=== PATIENT | female | born 1975 | race Caucasian/White ===

== ENCOUNTER 2016-08-06 13:19 | Outpatient (CLI) | payer MEDICAID, OTHER ==
[2016-08-06] MEDS ORDERED: IOTHALAMATE MEGLUMINE 50 ML VIAL IVP ONE (14:29)
[2016-08-06] MEDS ORDERED: LIDOCAINE-MPF 1% 5 ML VIAL SUBQ ONE (14:29)
[2016-08-06] MEDS ORDERED: GADOPENTETATE DIMEGLUMINE 5 ML VIAL IVP ONE (14:29)
[2016-08-06] MEDS ORDERED: BUFFERED LIDOCAINE 10 ML SYRINGE IU ONE (14:29)
== END 2016-08-06 13:20 | disposition home or self-care (01) ==
DX: M75.121 Complete rotator cuff tear or rupture of right shoulder, not specified as traumatic (principal); M94.211 Chondromalacia, right shoulder; M25.811 Other specified joint disorders, right shoulder; M25.511 Pain in right shoulder
CPT/HCPCS: 23350; 73222; 77002; Q9961

== ENCOUNTER 2016-08-23 08:00 | Outpatient (CLI) | payer MEDICAID, OTHER | END 2016-08-23 08:01 | disposition home or self-care (01) | DX: E03.9 Hypothyroidism, unspecified (principal) ==

== ENCOUNTER 2016-08-23 17:07 | Outpatient (CLI) | payer MEDICAID, OTHER | END 2016-08-23 17:08 | disposition home or self-care (01) | DX: E03.9 Hypothyroidism, unspecified (principal) ==

== ENCOUNTER 2016-10-04 12:26 | Outpatient (CLI) | payer OTHER, MEDICAID | END 2016-10-04 12:27 | disposition home or self-care (01) | DX: E03.9 Hypothyroidism, unspecified (principal) ==

== ENCOUNTER 2016-10-18 10:07 | Emergency (ER) | payer OTHER, MEDICAID ==
[2016-10-18 10:53] LABS: BASOPHILS % (AUTO) 0.4 %; EOSINOPHILS # (AUTO) 0.1 10^3/uL (0.0-0.7); EOSINOPHILS % (AUTO) 1.6 %; HCT - HEMATOCRIT 36.3 % (37.0-47.0); HGB - HEMOGLOBIN 12.6 g/dL (12.0-16.0); LYMPHOCYTES # (AUTO) 1.9 10^3/uL (1.5-3.5); LYMPHOCYTES % (AUTO) 36.4 %; MEAN CORPUSCULAR HEMOGLOBIN 32.2 pg (27.0-31.0); MEAN CORPUSCULAR HGB CONC 34.8 g/dL (32.0-36.0); MEAN CORPUSCULAR VOLUME 92.4 fL (81.0-99.0); MEAN PLATELET VOLUME 8.6 fL (7.9-10.8); MONOCYTES # (AUTO) 0.4 10^3/uL (0.0-1.0); MONOCYTES % (AUTO) 8.5 %; NEUTROPHILS # (AUTO) 2.7 10^3/uL (1.5-6.6); NEUTROPHILS % (AUTO) 53.1 %; NUCLEATED RED BLOOD CELLS AUTO 0.1 /100WBC; RED BLOOD COUNT 3.93 10^6/uL (4.20-5.40); RED CELL DISTRIBUTION WIDTH 12.9 % (12.0-15.0); UNCORRECTED WHITE BLOOD COUNT 5.2 x10^3/uL; WHITE BLOOD COUNT 5.2 x10^3/uL (4.8-10.8)
[2016-10-18 10:54] LABS: BILIRUBIN,URINE NEGATIVE (NEGATIVE)
[2016-10-18 10:56] LABS: HCG UR QUAL NEGATIVE; UA CHARGE (STRIP ONLY) YES; UR CULTURE IF IND NOT INDICATED
[2016-10-18 11:04] LABS: ALBUMIN/GLOBULIN RATIO 1.3 (1.0-2.2); BILIRUBIN,TOTAL 0.5 mg/dL (0.2-1.0); CALCIUM 8.9 mg/dL (8.5-10.3); CREATININE 0.6 mg/dL (0.4-1.0); POTASSIUM 4.2 mmol/L (3.5-5.0); TOTAL PROTEIN 6.8 g/dL (6.7-8.2)
--- NOTE | 2016-10-18 11:06 | ED Physician Documentation ---
History of Present Illness - Stated complaint Stated Complaint: RUQ PX/KIDNEY PX - Chief complaint Chief Complaint: Abd Pain - Additonal information Additional information: hx from pt 41 female 4 days of worsening RUQ -> R flank pain s/p sonia EVANGELISTA BSO nausea, loose dark BM tested her own urine and neg for infection no fever, + chills no bad food, travel, sick contacts except child with strep Review of Systems Constitutional: reports: Chills. denies: Fever Cardiac: denies: Chest pain / pressure Respiratory: denies: Dyspnea GI: reports: Abdominal Pain, Nausea, Bloody / black stool (blackish). 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, Oophrectomy - Present Medications Home Medications: Ambulatory Orders Medication Instructions Recorded Confirmed Escitalopram Oxalate [Lexapro] 20 mg PO DAILY 03/30/16 10/18/16 Estradiol 1.5 mg PO DAILY 03/30/16 10/18/16 Butalb/Acetaminophen/Caffeine 1 tab PO Q6HR PRN 10/18/16 10/18/16 [[id number]-[id number]-Vhvp 50-300-40] Dicyclomine [Bentyl] 10 mg PO Q8H PRN #20 capsule 10/18/16 Levothyroxine [Synthroid] 25 mg PO DAILY 10/18/16 10/18/16 Promethazine [Phenergan] 25 mg PO Q6H PRN #10 tablet 10/18/16 - Allergies Allergies/Adverse Reactions: Allergies Allergy/AdvReac Type Severity Reaction Status Date / Time No Known Drug Allergies Allergy Verified 10/18/16 10:17 - Social History Does the pt smoke?: No Smoking Status: Never smoker - Immunizations Immunizations are current?: Yes PD ED PE NORMAL - Vitals Vital signs reviewed: Yes - General General: Alert and oriented X 3 - HEENT HEENT: PERRL - Neck Neck: Supple, no meningeal sign - Cardiac Cardiac: RRR - Respiratory Respiratory: No respiratory distress - Abdomen Abdomen: Soft, Other (TTP mid and upper right abd with some vol guarding, milder TTP RLQ) - Rectal Rectal: Other (dark brown heme neg stool QC passed) - Back Back: No: No CVA TTP (R) - Derm Derm: Normal color Results - Vitals Vitals: Vital Signs - 24 hr 10/18/16 10/18/16 10/18/16 10:14 12:20 12:33 Temperature 36 C L 36.2 C L Heart Rate 70 58 L 61 Respiratory 16 13 18 Rate Blood Pressure 136/75 H 107/55 L 118/73 O2 Saturation 100 99 100 10/18/16 13:35 Temperature Heart Rate 62 Respiratory 18 Rate Blood Pressure 117/73 O2 Saturation 97 Oxygen O2 Source Room air - Labs Labs: Laboratory Tests 10/18/16 10/18/16 10/18/16 10:40 10:43 10:43 WBC 5.2 RBC 3.93 L Hgb 12.6 Hct 36.3 L MCV 92.4 MCH 32.2 H MCHC 34.8 RDW 12.9 Plt Count 196 MPV 8.6 Neut # 2.7 Lymph # 1.9 Ware # 0.4 Eos # 0.1 Baso # 0.0 Absolute Nucleated RBC 0.01 Nucleated RBCs 0.1 Sodium 136 Potassium 4.2 Chloride 102 Carbon Dioxide 26 Anion Gap 8.0 BUN 13 Creatinine 0.6 Estimated GFR (MDRD) 110 Glucose 119 H Calcium 8.9 Total Bilirubin 0.5 AST 38 ALT 39 Alkaline Phosphatase 56 Total Protein 6.8 Albumin 3.9 Globulin 2.9 Albumin/Globulin Ratio 1.3 Lipase 16 L Urine Color YELLOW Urine Clarity CLEAR Urine pH 6.0 Ur Specific [place] 1.010 Urine Protein NEGATIVE Urine Glucose (UA) NEGATIVE Urine Ketones NEGATIVE Urine Occult Blood NEGATIVE Urine Nitrite NEGATIVE Urine Bilirubin NEGATIVE Urine Urobilinogen 0.2 (NORMAL) Ur Leukocyte Esterase NEGATIVE Ur Microscopic Review NOT INDICATED Urine Culture Comments NOT INDICATED Urine HCG, Qual NEGATIVE - Rads (name of study) CT abd pelvis Radiology: See rad report (no stones, diverticulosis s itis, s/p sonia and hyst , metallic FB in LLQ ? etiology) Departure - Departure Disposition: 01 Home, Self Care Clinical Impression: Abdominal pain Qualifiers: Abdominal location: unspecified location Qualified Code(s): R10.9 - Unspecified abdominal pain Condition: Good Instructions: ED Abdominal Pain Unkn Cause Follow-Up: Mel Nieves DO [Primary Care Provider] - (for a recheck in the next two days) Prescriptions: Dicyclomine [Bentyl] 10 mg PO Q8H PRN #20 capsule PRN Reason: Abdominal Pain Promethazine [Phenergan] 25 mg PO Q6H PRN #10 tablet PRN Reason: vomiting Comments: All of the tests today came back fine. The urine showed no infection or blood to suggest a kidney stone The blood work including kidney liver and pancreas function was fine. The CT scan did not show any kidney stones, no pancreatitis, no aneurysm, no bowel infection/perforation/obstruction, no internal bleeding or free fluid I am not sure what is causing the pain But given the extensive and reassuring workup, I do not think you need surgery or admission or antibiotics. I think it is safe for you to go home and to get any further work up as an outpatient It is very possible that over time, new or changing symptoms may develop that lead to a diagnosis not presently apparent. That is why close follow up with your PMD for a recheck is very important You can try a medication called bentyl to ease the pains. I do not recommend any strong pain killers because I do not want to mask changing or worsening symptoms Forms: Activity restrictions
--- NOTE | 2016-10-18 12:29 | CT Preliminary Report ---
Exam: CT Abdomen/Pelvis W/O IMPRESSION: Prior hysterectomy and cholecystectomy. No urinary tract calculi or urinary tract obstruction noted. Mild diverticulosis of the right colon without inflammatory change. Remainder of the bowel unremarkab le. 9 mm ovoid metallic foreign body left lower quadrant of indeterminate etiology. [facility] SITE ID: [id number]
--- NOTE | 2016-10-18 12:31 | CT Report ---
EXAM: CT ABDOMEN AND PELVIS (CT KUB) WITHOUT CONTRAST EXAM DATE: 10/18/2016 12:18 PM. CLINICAL HISTORY: Right sided abdominal/flank pain in a 41-year-old female. COMPARISONS: None. TECHNIQUE: Emergent axial helical CT imaging was performed through the abdomen and pelvis without IV contrast. Reconstructions: Coronal and sagittal. In accordance with CT protocol optimization, one or more of the following dose reduction techniques w ere utilized for this exam: automated exposure control, adjustment of mA and/or KV based on patient s ize, or use of iterative reconstructive technique. FINDINGS: Lung Bases: Unremarkable. Right Kidney/Ureter: Unremarkable. No stones, hydronephrosis, or hydroureter. No perinephric fat stra nding. Left Kidney/Ureter: Unremarkable. No stones, hydronephrosis, or hydroureter. No perinephric fat stran ding. Other Solid Organs: Noncontrast images of the solid organs are grossly unremarkable. Gallbladder/Bile Ducts: Gallbladder surgically absent. No dilated bile ducts. Peritoneal Cavity: Mild diverticulosis of the right colon without inflammatory change. No obstruction . No free fluid, free air or siobhan adenopathy. Appendix and terminal ileum are unremarkable. 3 x 9 mm metallic foreign body left lower quadrant. Pelvic Organs: Urinary bladder unremarkable. Uterus surgically absent. No adnexal mass, cyst or free fluid. No pathologically enlarged lymph nodes. Vasculature: Unremarkable. Other: None. IMPRESSION: Prior hysterectomy and cholecystectomy. No urinary tract calculi or urinary tract obstruction noted. Mild diverticulosis of the right colon without inflammatory change. Remainder of the bowel unremarkab le. 9 mm ovoid metallic foreign body left lower quadrant of indeterminate etiology. [facility] Referring Provider Line: [phone] SITE ID: [id number]
[2016-10-18] MEDS ORDERED: oxyCODONE 5 MG TABLET PO STA (12:48)
[2016-10-18] MEDS ORDERED: KETOROLAC 60 MG/2 ML VIAL IVP STA (12:48)
[2016-10-18] MEDS ORDERED: DICYCLOMINE 10 MG CAPSULE PO STA (12:49)
[2016-10-18] MEDS ORDERED: KETOROLAC 30 MG/ML VIAL ONE (12:51)
[2016-10-18] MEDS ORDERED: oxyCODONE 5 MG TABLET ONE (12:52)
[2016-10-18 13:37] VITALS: BP 117/73
== END 2016-10-18 14:04 | disposition home or self-care (01) ==
LOC: ED 10:07
DX: R10.11 Right upper quadrant pain (principal); K21.9 Gastro-esophageal reflux disease without esophagitis
CPT/HCPCS: 36415; 74176; 80053; 81003; 81025; 83690; 85025; 96374; 99283; 99284; A9270; 81001; 87086

== ENCOUNTER 2016-11-02 05:45 | Emergency (ER) | payer OTHER, MEDICAID ==
[2016-11-02] MEDS ORDERED: ALBUTEROL NEB 2.5 MG/3 ML INH STA (06:00)
[2016-11-02] MEDS ORDERED: DEXAMETHASONE 10 MG/ML VIAL PO STA (06:00)
[2016-11-02] MEDS ORDERED: HYDROcod/ACETAM 5/325 MG TABLET PO STA (06:01)
[2016-11-02] MEDS ORDERED: DEXAMETHASONE 10 MG/ML VIAL ONE (06:03)
[2016-11-02] MEDS ORDERED: HYDROcod/ACETAM 5/325 MG TABLET ONE (06:03)
[2016-11-02] MEDS ORDERED: CHERRY SYRUP 10 ML UDC PO ONE (06:03)
[2016-11-02] MEDS ORDERED: ALBUTEROL NEB 2.5 MG/3 ML INH ONE (06:07)
--- NOTE | 2016-11-02 06:07 | ED Physician Documentation ---
PD HPI URI - Stated complaint Stated Complaint: SHORTNESS OF BREATH,COUGH - Chief complaint Chief Complaint: Resp - History obtained from History obtained from: Patient - History of Present Illness Timing - onset: How many days ago (2) Timing duration: Days (2) Timing details: Gradual onset Pain level max: 8 Pain level now: 8 Associated symptoms: Fever (subjective), Nasal congestion, Rhinorrhea, Productive cough, Other (hoarse voice) Contributing factors: Sick contact Improves by: Rest, Medication (nyquil) Worsened by: Activity, Breathing Recently seen: Not recently seen Review of Systems Nose: reports: Rhinorrhea / runny nose, Congestion Skin: denies: Rash Musculoskeletal: denies: Neck pain, Back pain Neurologic: denies: Focal weakness, Numbness, Headache PD PAST MEDICAL HISTORY - Past Medical History Past Medical History: Yes GI: GERD Psych: Depression, Anxiety Musculoskeletal: Chronic back pain, Other - Past Surgical History General: Cholecystectomy 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, 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, 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, 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 - Present Medications Home Medications: Ambulatory Orders Medication Instructions Recorded Confirmed Escitalopram Oxalate [Lexapro] 20 mg PO DAILY 03/30/16 10/18/16 Estradiol 1.5 mg PO DAILY 03/30/16 10/18/16 Levothyroxine [Synthroid] 25 mg PO DAILY 10/18/16 10/18/16 Albuterol Sulf [Ventolin Hfa 2 puffs INH Q4HR PRN #1 inhaler 11/02/16 Inhaler] Benzonatate [Tessalon Perle] 100 mg PO TID PRN #30 capsule 11/02/16 Doxycycline Hyclate 100 mg PO BID #14 capsule 11/02/16 Prednisone 40 mg PO DAILY #10 tablet 11/02/16 - Allergies Allergies/Adverse Reactions: Allergies Allergy/AdvReac Type Severity Reaction Status Date / Time No Known Drug Allergies Allergy Verified 11/02/16 05:52 - Social History Does the pt smoke?: No Smoking Status: Never smoker Does the pt drink ETOH?: No Does the pt have substance abuse?: No - Immunizations Immunizations are current?: Yes - POLST Patient has POLST: No PD ED PE NORMAL - Vitals Vital signs reviewed: Yes - General General: Alert and oriented X 3, No acute distress - HEENT HEENT: PERRL, Ears normal, Moist mucous membranes, Pharynx benign - Neck Neck: Supple, no meningeal sign, No adenopathy - Cardiac Cardiac: RRR, Strong equal pulses - Respiratory Respiratory: No respiratory distress, Other (mild dimished BS bilaterally.) - Abdomen Abdomen: Soft, Non tender, Non distended - Derm Derm: Warm and dry - 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 - Psych Psych: Normal mood, Normal affect Results - Vitals Vitals: Vital Signs - 24 hr 11/02/16 11/02/16 05:50 06:15 Temperature 36.3 C L Heart Rate 80 68 Respiratory 19 16 Rate Blood Pressure 117/55 L O2 Saturation 95 Oxygen O2 Source Room air - Rads (name of study) cxr Radiology: Prelim report reviewed, EMP read contemporaneously, See rad report ( Bibasilar atelectasis versus infiltrate) PD MEDICAL DECISION MAKING - ED course Complexity details: reviewed results, re-evaluated patient, considered differential, d/w patient ED course: Patient is a 41-year-old female who presents to the emergency department with upper respiratory infection symptoms. X-ray shows possible bibasilar infiltrates. Will cover her with antibiotics for this. She does feel better after nebulizer treatment. Will place on inhalers and steroids for home as well. Patient is well-appearing, nontoxic. Afebrile. No hypoxia. No respiratory distress. Patient counseled regarding signs and symptoms for which I believe and urgent re-evaluation would be necessary. Patient with good understanding of and agreement to plan and is comfortable going home at this time This document was made in part using voice recognition software. While efforts are made to proofread this document, sound alike and grammatical errors may occur. Departure - Departure Disposition: 01 Home, Self Care Clinical Impression: Pneumonia Qualifiers: Pneumonia type: due to unspecified organism Laterality: bilateral Lung location : lower lobe of lung Qualified Code(s): J18.9 - Pneumonia, unspecified organism Condition: Good Instructions: ED Pneumonia Adult Follow-Up: Mel Nieves DO [Primary Care Provider] - Within 1 week Prescriptions: Albuterol Sulf [Ventolin Hfa Inhaler] 2 puffs INH Q4HR PRN #1 inhaler PRN Reason: Wheezing Doxycycline Hyclate 100 mg PO BID #14 capsule Prednisone 40 mg PO DAILY #10 tablet Benzonatate [Tessalon Perle] 100 mg PO TID PRN #30 capsule PRN Reason: Cough Comments: Return if you worsen. Drink plenty of fluids and rest.
--- NOTE | 2016-11-02 06:28 | XRAY Preliminary Report ---
Exam: XR Chest 2 View PA/LAT IMPRESSION: 1. Mild bibasilar atelectasis or less likely infiltrate. [facility] SITE ID: [id number]
--- NOTE | 2016-11-02 06:31 | XRAY Report ---
EXAM: CHEST RADIOGRAPHY EXAM DATE: 11/02/2016 06:18 AM. CLINICAL HISTORY: Cough, fever. COMPARISON: None. TECHNIQUE: 2 views. FINDINGS: Lungs/Pleura: Mild bibasilar atelectasis or infiltrate. No pleural effusion. No pneumothorax. Mediastinum: Heart and mediastinal contours are unremarkable. Other: None. IMPRESSION: 1. Mild bibasilar atelectasis or less likely infiltrate. [facility] Referring Provider Line: [phone] SITE ID: [id number]
[2016-11-02 06:54] VITALS: BP 116/55
== END 2016-11-02 07:00 | disposition home or self-care (01) ==
LOC: ED 05:45
DX: J18.9 Pneumonia, unspecified organism (principal); K21.9 Gastro-esophageal reflux disease without esophagitis
CPT/HCPCS: 71020; 94640; 99283; A9270; J7613

== ENCOUNTER 2016-11-04 06:05 | Emergency (ER) | payer OTHER, MEDICAID ==
[2016-11-04] MEDS ORDERED: IPRATROPIUM/ALBUTEROL 3 ML NEB INH ONE (06:09)
[2016-11-04] MEDS ORDERED: IPRATROPIUM/ALBUTEROL 3 ML NEB INH STA (06:15)
[2016-11-04] MEDS ORDERED: predniSONE 20 MG TABLET PO STA (06:16)
[2016-11-04] MEDS ORDERED: predniSONE 20 MG TABLET ONE (06:16)
--- NOTE | 2016-11-04 06:19 | ED Physician Documentation ---
PD HPI DYSPNEA - Stated complaint Stated Complaint: DIFFICUTLY BREATHING - Chief complaint Chief Complaint: Resp - History obtained from History obtained from: Patient - History of Present Illness Timing - onset: How many days ago (3) Timing - details: Gradual onset, Still present Inciting event(s): URI Improved by: O2, Inhaler/neb, Steroids Associated symptoms: Cough Similar symptoms before: No diagnosis, Work up / diagnostics Recently seen: Emergency Dept - Additional information Additional information: Patient is a 41 year old female with a history of asthma who is presenting to the emergency department for shortness of breath and wheezing. Patient was seen in the ed two days ago where she was diagnosed with pneumonia and started on antibiotics. Patient had worsening shortness of breath today so she came in for evaluation. Review of Systems Constitutional: denies: Fever, Chills Eyes: denies: Loss of vision, Photophobia Ears: denies: Ear pain Nose: reports: Congestion, Sinus pressure / pain Throat: denies: Dental pain / toothache Respiratory: reports: Dyspnea, Cough, Wheezing GI: denies: Nausea, Vomiting Skin: denies: Rash, Lesions Musculoskeletal: denies: Neck pain, Back pain Neurologic: denies: Generalized weakness, Focal weakness Immunocompromised: denies: Immunocompromised PD PAST MEDICAL HISTORY - Past Medical History GI: GERD Psych: Depression, Anxiety Musculoskeletal: Chronic back pain, Other - Past Surgical History General: Cholecystectomy 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, 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, 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 - Present Medications Home Medications: Ambulatory Orders Medication Instructions Recorded Confirmed Escitalopram Oxalate [Lexapro] 20 mg PO DAILY 03/30/16 10/18/16 Estradiol 1.5 mg PO DAILY 03/30/16 10/18/16 Levothyroxine [Synthroid] 25 mg PO DAILY 10/18/16 10/18/16 Albuterol Sulf [Ventolin Hfa 2 puffs INH Q4HR PRN #1 inhaler 11/02/16 Inhaler] Benzonatate [Tessalon Perle] 100 mg PO TID PRN #30 capsule 11/02/16 Doxycycline Hyclate 100 mg PO BID #14 capsule 11/02/16 Prednisone 40 mg PO DAILY #10 tablet 11/02/16 - Allergies Allergies/Adverse Reactions: Allergies Allergy/AdvReac Type Severity Reaction Status Date / Time No Known Drug Allergies Allergy Verified 11/02/16 05:52 - Social History Does the pt smoke?: No Smoking Status: Never smoker Does the pt drink ETOH?: No Does the pt have substance abuse?: No - Immunizations Immunizations are current?: Yes - POLST Patient has POLST: No PD ED PE NORMAL - Vitals Vital signs reviewed: Yes - General General: Well developed/nourished - HEENT HEENT: Atraumatic, PERRL - Neck Neck: Supple, no meningeal sign - Cardiac Cardiac: RRR, No murmur - Abdomen Abdomen: Soft, Non tender, Non distended - Derm Derm: Normal color, Warm and dry, No rash - Extremities Extremities: No deformity, No calf tenderness / cord - 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, No motor deficit, No sensory deficit PD ED PE EXPANDED - General General: Alert, Anxious - Respiratory Respiratory: Distress, Accessory mm use, Wheezing Results - Vitals Vitals: Vital Signs - 24 hr 11/04/16 11/04/16 11/04/16 06:13 06:31 06:46 Heart Rate 66 103 H 126 H Respiratory 34 H 28 H 26 H Rate Blood Pressure 133/69 H 121/59 L O2 Saturation 99 100 96 Oxygen O2 Source Room air - EKG (time done) 0645 Rate: Rate (enter#) (123) Rhythm: Sinus tachycardia [place]: Normal Intervals: Normal [place] QRS: LVH Ischemia: ST depression Compare to prior EKG: Old EKG unavailable - Labs Labs: Laboratory Tests 11/04/16 11/04/16 11/04/16 06:44 06:44 06:44 WBC 8.0 RBC 4.20 Hgb 13.2 Hct 39.5 MCV 94.1 MCH 31.5 H MCHC 33.4 RDW 13.2 Plt Count 219 MPV 8.5 Neut # 3.7 Lymph # 3.8 H [place] # 0.4 Eos # 0.1 Baso # 0.0 Absolute Nucleated RBC 0.01 Nucleated RBCs 0.1 Sodium 139 Potassium 3.1 L Chloride 103 Carbon Dioxide 23 Anion Gap 13.0 BUN 16 Creatinine 0.8 Estimated GFR (MDRD) 79 L Glucose 123 H Calcium 9.0 Total Bilirubin 0.5 AST 27 ALT 31 Alkaline Phosphatase 52 Troponin I < 0.04 B-Natriuretic Peptide Total Protein 7.2 Albumin 4.1 Globulin 3.1 Albumin/Globulin Ratio 1.3 Lipase 16 L 11/04/16 06:44 WBC RBC Hgb Hct MCV MCH MCHC RDW Plt Count MPV Neut # Lymph # [place] # Eos # Baso # Absolute Nucleated RBC Nucleated RBCs Sodium Potassium Chloride Carbon Dioxide Anion Gap BUN Creatinine Estimated GFR (MDRD) Glucose Calcium Total Bilirubin AST ALT Alkaline Phosphatase Troponin I B-Natriuretic Peptide 61 Total Protein Albumin Globulin Albumin/Globulin Ratio Lipase PD MEDICAL DECISION MAKING - ED course Complexity details: reviewed old records, reviewed results, re-evaluated patient , considered differential, d/w patient ED course: Patient was seen and examined at bedside. Patient was using accessory muscles and had audible wheezing. Patient was immediately started on three duoneb treatments and 60mg of prednisone. Patient wheezing improved but she became tachycardic. Patient reported that she did have a history of anxiety and thinking about her chest pain made it worse. due to the fact that the patient had recently been seen and that she did not have a history of asthma a more thorough work-up was performed. Patient's condition was likely due to bronchitis with a negative heart score, and perc score of zero on presentation. Patient's diagnostics were all within normal limits. Patient was saturating well on room air. Patient was a bit tachycardic from the albuterol but was otherwise stable for discharge with outpatient therapy. Departure - Departure Disposition: 01 Home, Self Care Clinical Impression: Bronchitis Instructions: ED Bronchitis Asthmatic Follow-Up: Mel Nieves DO [Primary Care Provider] - Within 3 Days (follow up for cough and uri symptoms) Comments: please continue with the therapy that you were previously started on. You may use your inhaler ever two hours as needed in the acute phase. You should follow up with your pmd within the next three days. You may return to the emergency department for shortness of breath, new, worsening or uncontrollable symptoms.
[2016-11-04 06:32] VITALS: BP 121/59
[2016-11-04 06:48] LABS: BASOPHILS % (AUTO) 0.4 %; EOSINOPHILS # (AUTO) 0.1 10^3/uL (0.0-0.7); EOSINOPHILS % (AUTO) 0.7 %; HCT - HEMATOCRIT 39.5 % (37.0-47.0); HGB - HEMOGLOBIN 13.2 g/dL (12.0-16.0); LYMPHOCYTES # (AUTO) 3.8 10^3/uL (1.5-3.5); LYMPHOCYTES % (AUTO) 47.3 %; MEAN CORPUSCULAR HEMOGLOBIN 31.5 pg (27.0-31.0); MEAN CORPUSCULAR HGB CONC 33.4 g/dL (32.0-36.0); MEAN CORPUSCULAR VOLUME 94.1 fL (81.0-99.0); MEAN PLATELET VOLUME 8.5 fL (7.9-10.8); MONOCYTES # (AUTO) 0.4 10^3/uL (0.0-1.0); MONOCYTES % (AUTO) 5.6 %; NEUTROPHILS # (AUTO) 3.7 10^3/uL (1.5-6.6); NUCLEATED RED BLOOD CELLS AUTO 0.1 /100WBC; RED CELL DISTRIBUTION WIDTH 13.2 % (12.0-15.0)
[2016-11-04 07:02] LABS: ALBUMIN/GLOBULIN RATIO 1.3 (1.0-2.2); BILIRUBIN,TOTAL 0.5 mg/dL (0.2-1.0); CREATININE 0.8 mg/dL (0.4-1.0); POTASSIUM 3.1 mmol/L (3.5-5.0); TOTAL PROTEIN 7.2 g/dL (6.7-8.2)
--- NOTE | 2016-11-04 07:08 | XRAY Preliminary Report ---
Exam: XR Chest 2 View PA/LAT IMPRESSION: Normal 2-view chest radiography. [facility] SITE ID: [id number]
--- NOTE | 2016-11-04 07:11 | XRAY Report ---
EXAM: CHEST RADIOGRAPHY EXAM DATE: 11/04/2016 07:03 AM. CLINICAL HISTORY: Chest pain. COMPARISON: 11/02/2016 radiograph. TECHNIQUE: 2 views. FINDINGS: Lungs/Pleura: No focal opacities evident. No pleural effusion. No pneumothorax. Normal volumes. Mediastinum: Heart and mediastinal contours are unremarkable. Other: None. IMPRESSION: Normal 2-view chest radiography. [facility] Referring Provider Line: [phone] SITE ID: [id number]
== END 2016-11-04 07:17 | disposition home or self-care (01) ==
LOC: ED 06:05
DX: J45.909 Unspecified asthma, uncomplicated (principal); K21.9 Gastro-esophageal reflux disease without esophagitis
CPT/HCPCS: 36415; 71020; 80053; 83690; 83880; 84484; 85025; 93005; 93010; 99283; 99284; J7512; J7620

== ENCOUNTER 2016-11-16 12:05 | Observation (INO) | payer OTHER, MEDICAID ==
[2016-11-16] MEDS ORDERED: SODIUM CHLORIDE 0.9% 1,000 ML IV ONE (12:28)
[2016-11-16] MEDS ORDERED: HYDROmorphone 1 MG/ML SYRINGE IVP STA ×3 (12:28→14:49)
[2016-11-16] MEDS ORDERED: ONDANSETRON 4 MG/2 ML VIAL IVP STA (12:28)
[2016-11-16] MEDS ORDERED: HYDROmorphone 1 MG/ML SYRINGE ONE ×3 (12:29→14:57)
[2016-11-16] MEDS ORDERED: ONDANSETRON 4 MG/2 ML VIAL ONE (12:30)
--- NOTE | 2016-11-16 12:33 | ED Physician Documentation ---
PD HPI ABD PAIN - Stated complaint Stated Complaint: ABD PX - Chief complaint Chief Complaint: Abd Pain - History obtained from History obtained from: Patient - History of Present Illness Timing - onset: Other (This is a 41-year-old woman with one week of worsening left lower quad pain which is nonradiating. She is similar but milder episode a month ago for which she did not seek care. She has had chills and nausea but no measured fevers or vomiting. No changes in her bowel movements and no urinary complaints except for strong smelling urine. Of note she has a history of hysterectomy and bilateral oophorectomy for uterine prolapse, this was followed by right ovarian torsion, and later a left ovarian cyst, so she actually had 3 pelvic surgery separately.) Review of Systems Ten Systems: 10 systems reviewed and negative Constitutional: reports: Chills. denies: Fever GI: reports: Nausea. 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: Tubal ligation, 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 - Present Medications Home Medications: Ambulatory Orders Medication Instructions Recorded Confirmed Escitalopram Oxalate [Lexapro] 20 mg PO DAILY 03/30/16 11/16/16 Estradiol 1.5 mg PO DAILY 03/30/16 11/16/16 Levothyroxine [Synthroid] 25 mg PO DAILY 10/18/16 11/16/16 HYDROcod/ACETAM 5/325 [[place] 5/325] 0 mg PRN 11/16/16 - Allergies Allergies/Adverse Reactions: Allergies Allergy/AdvReac Type Severity Reaction Status Date / Time No Known Drug Allergies Allergy Verified 11/16/16 12:20 - Social History Does the pt smoke?: No Smoking Status: Never smoker Does the pt drink ETOH?: No Does the pt have substance abuse?: No - Family History Family history: reports: Non contributory - Immunizations Immunizations are current?: Yes - POLST Patient has POLST: No PD ED PE NORMAL - Vitals Vital signs reviewed: Yes - General General: Alert and oriented X 3, No acute distress - HEENT HEENT: PERRL, EOMI - Neck Neck: Supple, no meningeal sign, No bony TTP - Cardiac Cardiac: RRR, No murmur - Respiratory Respiratory: No respiratory distress, Clear bilaterally - Abdomen Abdomen: Other (TTP LLQ without G/R) - Back Back: No CVA TTP, No spinal TTP - Derm Derm: Normal color, Warm and dry, No rash - Extremities Extremities: No edema, No calf tenderness / cord - 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, Normal speech - Psych Psych: Normal mood, Normal affect Results - Vitals Vitals: Vital Signs - 24 hr 11/16/16 11/16/16 12:07 12:53 Temperature 36.2 C L Heart Rate 96 74 Respiratory 20 18 Rate Blood Pressure 151/102 H 117/68 O2 Saturation 96 100 Oxygen O2 Source Room air - Labs Labs: Laboratory Tests 11/16/16 11/16/16 11/16/16 12:15 12:39 12:39 WBC 6.1 RBC 4.07 L Hgb 12.9 Hct 37.6 MCV 92.3 MCH 31.7 H MCHC 34.4 RDW 12.9 Plt Count 200 MPV 8.0 Neut # 2.6 Lymph # 2.8 [place] # 0.5 Eos # 0.1 Baso # 0.0 Absolute Nucleated RBC 0.00 Nucleated RBCs 0.0 Sodium 139 Potassium 3.9 Chloride 101 Carbon Dioxide 28 Anion Gap 10.0 BUN 12 Creatinine 0.6 Estimated GFR (MDRD) 110 Glucose 94 Calcium 9.5 Total Bilirubin 0.8 AST 26 ALT 33 Alkaline Phosphatase 56 Total Protein 7.1 Albumin 4.0 Globulin 3.1 Albumin/Globulin Ratio 1.3 Lipase 16 L Urine Color YELLOW Urine Clarity CLEAR Urine pH 5.5 Ur Specific Lipscomb >=1.030 H Urine Protein NEGATIVE Urine Glucose (UA) NEGATIVE Urine Ketones NEGATIVE Urine Occult Blood NEGATIVE Urine Nitrite NEGATIVE Urine Bilirubin NEGATIVE Urine Urobilinogen 0.2 (NORMAL) Ur Leukocyte Esterase NEGATIVE Ur Microscopic Review NOT INDICATED Urine Culture Comments NOT INDICATED - Rads (name of study) CT A/P Radiology: EMP read contemporaneously (normal) PD MEDICAL DECISION MAKING - ED course ED course: 41-year-old woman presents with gradual onset severe left lower quadrant pain without radiation or movement not associated with changes in bowel movements, urinary complaints. She is tender on examination. Workup in the emergency department is negative with normal labs and normal CT. She is still in severe pain. Given persistent severe pain and tenderness despite narcotic analgesia spoke with Dr. Webber, the on-call surgeon for consultation at 208 p.m. and he will see the patient in emergency department. After surgical evaluation he felt that she should be placed in observation on the medicine service and Dr. Enriquez was called at 229 p.m. Departure - Departure Disposition: ED Place in Observation Clinical Impression: Abdominal pain Qualifiers: Abdominal location: left lower quadrant Qualified Code(s): R10.32 - Left lower quadrant pain Condition: Stable
[2016-11-16 12:54] LABS: BILIRUBIN,URINE NEGATIVE (NEGATIVE); PH,URINE 5.5 PH (5.0-7.5)
[2016-11-16 12:56] LABS: BASOPHILS % (AUTO) 0.4 %; EOSINOPHILS # (AUTO) 0.1 10^3/uL (0.0-0.7); EOSINOPHILS % (AUTO) 1.4 %; HCT - HEMATOCRIT 37.6 % (37.0-47.0); HGB - HEMOGLOBIN 12.9 g/dL (12.0-16.0); LYMPHOCYTES # (AUTO) 2.8 10^3/uL (1.5-3.5); LYMPHOCYTES % (AUTO) 46.6 %; MEAN CORPUSCULAR HEMOGLOBIN 31.7 pg (27.0-31.0); MEAN CORPUSCULAR HGB CONC 34.4 g/dL (32.0-36.0); MEAN CORPUSCULAR VOLUME 92.3 fL (81.0-99.0); MONOCYTES # (AUTO) 0.5 10^3/uL (0.0-1.0); MONOCYTES % (AUTO) 8.6 %; NEUTROPHILS # (AUTO) 2.6 10^3/uL (1.5-6.6); RED BLOOD COUNT 4.07 10^6/uL (4.20-5.40); RED CELL DISTRIBUTION WIDTH 12.9 % (12.0-15.0); UNCORRECTED WHITE BLOOD COUNT 6.1 x10^3/uL; WHITE BLOOD COUNT 6.1 x10^3/uL (4.8-10.8)
[2016-11-16 13:09] LABS: ALBUMIN/GLOBULIN RATIO 1.3 (1.0-2.2); BILIRUBIN,TOTAL 0.8 mg/dL (0.2-1.0); CALCIUM 9.5 mg/dL (8.5-10.3); CREATININE 0.6 mg/dL (0.4-1.0); POTASSIUM 3.9 mmol/L (3.5-5.0); TOTAL PROTEIN 7.1 g/dL (6.7-8.2)
[2016-11-16 13:29] LABS: UA CHARGE (STRIP ONLY) YES; UR CULTURE IF IND NOT INDICATED
[2016-11-16] MEDS ORDERED: IOPAMIDOL-300 100 ML VIAL IVP ONE (13:43)
--- NOTE | 2016-11-16 13:58 | CT Preliminary Report ---
Exam: CT Abdomen/Pelvis W/ IMPRESSION: 1. No bowel obstruction or inflammatory process associated with the bowel. 2. No free air or fluid in the abdomen or pelvis. 3. The appendix images normally. [facility] SITE ID: [id number]
--- NOTE | 2016-11-16 14:00 | CT Report ---
EXAM: CT ABDOMEN AND PELVIS EXAM DATE: 11/16/2016 01:43 PM. CLINICAL HISTORY: IV only, LLQ pain, ?diverticulitis, H/O hyst/oopho. COMPARISONS: None. TECHNIQUE: Routine helical CT imaging was performed through the abdomen and pelvis. IV contrast: 100 mL Isovue 300. Enteric contrast: No. Reconstructions: Coronal and sagittal. In accordance with CT protocol optimization, one or more of the following dose reduction techniques w ere utilized for this exam: automated exposure control, adjustment of mA and/or KV based on patient s ize, or use of iterative reconstructive technique. FINDINGS: Lung Bases: Unremarkable. Liver: Normal. No masses. Gallbladder/Bile Ducts: Status post cholecystectomy. Spleen: Normal. Pancreas: Normal. Adrenal Glands: Normal. Kidneys: Normal. No masses or hydronephrosis. Peritoneal Cavity/Bowel: Normal. No free fluid, free air or adenopathy. No masses or acute inflammato ry process. The appendix is well visualized and normal. Pelvic Organs: Status post hysterectomy. The bladder is decompressed. Vasculature: No aneurysms or other significant abnormality. Bones: No significant abnormality. Other: None. IMPRESSION: 1. No bowel obstruction or inflammatory process associated with the bowel. 2. No free air or fluid in the abdomen or pelvis. 3. The appendix images normally. [facility] Referring Provider Line: [phone] SITE ID: [id number]
[2016-11-16] MEDS ORDERED: KETOROLAC 60 MG/2 ML VIAL IVP STA (14:06)
[2016-11-16] MEDS ORDERED: KETOROLAC 30 MG/ML VIAL ONE (14:08)
[2016-11-16] MEDS ORDERED: SODIUM CHLORIDE FLUSH 0.9% 10 ML SYRINGE IVP PRN ×2 (15:09→15:42)
[2016-11-16] MEDS: SODIUM CHLORIDE 0.9% 1,000 ML IV SCH (16:56)
[2016-11-16] MEDS: traMADol 50 MG TABLET PO PRN (16:56)
[2016-11-16] MEDS: SODIUM CHLORIDE FLUSH 0.9% 10 ML SYRINGE IVP SCH (16:56)
[2016-11-16] MEDS: DICYCLOMINE 10 MG CAPSULE PO SCH ×2 (18:43→23:35)
[2016-11-16] MEDS: ONDANSETRON 4 MG/2 ML VIAL IVP PRN (18:44)
--- NOTE | 2016-11-16 19:46 | HISTORY & PHYSICAL EXAMINATION ---
DATE OF ADMISSION: 11/16/2016 PRIMARY CARE PROVIDER: Dr. Nieves: [facility]. [employer]ANSFORMATION LE[employer] surgeon Dr. Blue. CHIEF COMPLAINT: Abruptly worsening left lower quadrant pain when walking across the parking lot. 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 She came to the emergency room today when the pain that she has had in her left lower quadrant for approximately 2 weeks now, which she rates as a 5-6/10 for the last 2 weeks, abruptly worsened when she was walking across the parking lot. With this 2-week duration of this pain to start with, she denies that she had any associated fevers. She has had some chills and sweating. She has not had any change in appetite. She has been able to eat 3 meals. Today, so far all she has had was a Nutragrain bar. She does note that she has had loose bowel movements for the last week or so approximately 2-3 bowel movements a day. There is no evident blood, although she notes that occasionally on the toilet paper there is a very small amount. She reports that she has recurrent UTIs approximately once monthly for which she takes Bactrim and has not had any dysuria, frequency, hesitancy or feeling of incomplete bladder emptying. She does have a history of bladder suspension with no evident complications from it. Regarding the possibility of this being a TRANSFORMATION LEAD source of pain, she actually has had a total hysterectomy already in the past as well as right oophorectomy because of torsion and then a left oophorectomy because of a cyst. Therefore, she has no uterus, tubes or ovaries and is on estrogen replacement. She does have a history of migraines and is on butalbital, but no history of abdominal migraines and did actually have a dose of butalbital this morning, which made no difference. Of note, she was in the emergency room approximately 2 weeks ago for coughing for which she was sent out with antibiotic and corticosteroid, although she notes that she does not have any history of asthma and she reports that her cough has resolved at this point, although she was still coughing approximately 5 days ago. That cough was nonproductive. In the emergency room, she was afebrile and hemodynamically stable. There was no tachypnea. A lactate was not done in the ER; however, one drawn since arriving to the floor, is unremarkable at 1.2. She did not have any anion gap. Despite the negative findings, given the severity of her pain, a CT of the abdomen and pelvis was done, which showed no free air, no masses or acute inflammatory process. She is clearly post-hysterectomy, bladder was decompressed, vasculature was unremarkable and the appendix was noted specifically to have no surrounding inflammation or abnormality. Dr. Webber of Surgery was consulted in the emergency room and evaluated the patient, with the only remarkable finding on CT being the metallic body. The radiologist indicated this was most likely a clip most likely was related to the fallopian tube removal. On exam in the emergency room her pain on palpation was elicited with relatively light palpation rather than deep palpation. She was admitted for further evaluation. In the emergency room, she received a total of 3 doses of IV Dilaudid, which she reports helped, but for all of 20 minutes, as well as a dose of IV Toradol, which she feels did not help at all. PAST MEDICAL HISTORY: 1. Hypothyroidism. 2. Depression for which she is on escitalopram. 3. Gastroesophageal reflux disease for which she takes no medications. 4. Morbid obesity with a BMI of 43. 5. History of pseudo-hyperplastic left breast. 6. Migraines. 7. Rotator cuff injury. SURGICAL HISTORY: Includes 1. Total hysterectomy in April of 2015. 2. Right oophorectomy in 2015. 3. Bladder sling in October 2014. 4. Left oophorectomy in July of 2015. 5. Cholecystectomy. MEDICATIONS INCLUDE: 1. Hydrocodone 1-2 tablets daily. 2. Escitalopram 20 mg once daily. 3. Estradiol 1.5 mg once daily. 4. Butalbital p.r.n. migraines, last given this morning. 5. Levothyroxine 25 mcg daily alternating with no levothyroxine. The patient had taken Bentyl approximately a month ago for abdominal pain which she needed for 5 days and is no longer taking. ALLERGIES: SHE HAS NO KNOWN DRUG ALLERGIES. SOCIAL HISTORY: She is . She has 3 children. She recently moved to [place] from [place]. Her daughter still goes to school in [place]. Her 3 children are Artie and Sydnie and youngest daughter 11-year-old Jerri. HABITS: Tobacco use is none, also no alcohol or illicit drug use. FAMILY HISTORY: Notable for both parents still alive and healthy other than dad has diabetes and hypertension. There is a family history of colon cancer. REVIEW OF SYSTEMS: CONSTITUTIONAL: She reports an unintentional weight gain of 15 pounds over approximately a month, some diaphoresis as per above, but no fever as per the HPI. No new activity intolerance other than that related to the left lower quadrant discomfort. No vision changes. CARDIOVASCULAR: No chest pain, palpitations, edema. No near-syncope. RESPIRATORY: As above, cough has resolved. No shortness of breath. GASTROINTESTINAL: As per the HPI. GENITOURINARY: As per the HPI. History of recurrent UTIs approximately once monthly which are treated with Bactrim. MUSCULOSKELETAL: She has rotator cuff issues on the right. NEUROLOGIC: No weakness, discoordination, paresthesias. No confusion or memory issues. PSYCHIATRIC: She reports that her mood is well controlled on her escitalopram. HEMATOLOGIC: No unusual bruising or bleeding other than the occasional blood on the toilet paper as per the HPI. PHYSICAL EXAMINATION: VITAL SIGNS: Afebrile 36.8, heart rate 87, blood pressure 107/69, respiratory rate 18, 95% oxygenation on room air. Her blood pressure on initial presentation was 151/102 and blood does reflect several doses, 3 doses of 10 mg IV Dilaudid. The patient is a very pleasant, alert, oriented, appropriate, and very participative in the history taking young woman lying in bed on her side. She winces when she has to switch position onto her back for a physical exam. HEAD, EARS, EYES, NOSE AND THROAT: She is normocephalic, atraumatic. Hair is unremarkable. There is no evidence of nodule or goiter with her hypothyroidism. Pupils nonpinpoint fter the Dilaudid in the emergency room approximately 3 mm. Extraocular movements are intact. No scleral icterus. Oral mucosa is moist. She has good dentition, upper and lower. She has no appreciable lymphadenopathy, has a very full neck. CHEST: Unlabored respirations, clear to auscultation. HEART: Distant, regular S1, S2. She has very large breasts. ABDOMEN: Obese with mild striations throughout. I am able to gently palpate pretty much all over as I am talking with her other than a very localized area of tenderness to less than a centimeter depth palpation in the left lower quadrant. Of note, she does have a little bit of this tenderness also just below the epigastrium, as well as just under her left rib cage. She has positive bowel sounds. She has no specific suprapubic tenderness. With her generous habitus, I do not appreciate any organomegaly. SKIN: She has no lesions suggestive of shingles in the area of the affected pain. She does have old scars right and left mid abdomen from her oophorectomies and a right upper quadrant small scar from her cholecystectomy. EXTREMITIES: Extremity exam is unremarkable. When trying to evaluate her abdominal pain she was asked to lift each leg individually which does elicit some of this left lower quadrant pain. She would not be able to sit up in a sit- up position from lying flat due to the pain, but she is able to roll onto her side and sit up on the side of the bed. She has no peripheral edema. LABORATORY STUDIES: White count 6.1, hemoglobin 12.9, hematocrit 37.6, platelets 2000. Sodium 139, potassium 3.9, chloride 101, bicarbonate 28, BUN 12 , creatinine 0.6, glucose 94. AST and ALT are unremarkable at 26 and 33, total protein 7.1, albumin 4.0, calcium 9.5, lipase 16. Lactate was 1.2. Urinalysis is completely unremarkable other than a slightly elevated specific gravity at 1.030. IMAGING: CT abdomen as noted in the HPI. 1. No bowel obstruction or inflammatory process or free air or fluid. Normally imaged appendix. There is no note of a metallic structure in the left lower quadrant which is not specifically noted or described in this CT. However, it has been noted in the past, as well, on a October 18 CT just a month ago identified as a 3 x 9 mm metallic foreign body. ASSESSMENT AND PLAN: 1. Acute abdominal pain with the imaging and laboratory studies, this does not appear to be an acute GI process. Given her age, ischemic bowel seems very unlikely. A CT angiogram was considered, but has since her lactate is not elevated as well as no leukocytosis, that seems very unlikely that she would have an ischemic bowel. Incipient shingles was considered; however, she has had these symptoms for almost 2 weeks now without any evident lesions on her abdomen and also the nature of pain is not suggestive of shingles. The surgeon has discussed the metallic body on the left lower quadrant and this is identified as a clip most likely related to one of the fallopian tubes and her discomfort is far more superficial than with deep palpation. Given her history of significant coughing for 2 weeks, it seemed very possible that she had a muscle pull, given the localization of her tenderness with no other acute abdominal process evident. She denies that she had great effect with Dilaudid. I will continue the Toradol scheduled even though she did not particularly notice improvement with that. We will also give her a K-pad. She will have serial exams. At this time, will give her a regular diet rather than clears given that there does not seem to be an acute abdominal process. We will recheck a CBC in the morning to make sure there is no marked elevation in her white count which I did not anticipate. She does not have anything on exam or history that suggests that she would need a colonoscopy to assess this. Something else that was considered given her history of migraines, could this be an abdominal migraines, but that is not consistent with her discomfort, plus she had no improvement with the dose of butalbital this morning. Additionally, she had been taking Bentyl for cramping before. Her symptoms do not sound like irritable bowel syndrome and she does not feel like this is abdominal colic cramping type pain. If there is no change in her white count tomorrow or otherwise, her exam, this is likely a muscle strain from coughing. 2. Hypothyroid: It was remarkable on the patient's medication list that given her size that her levothyroxine dose is only 25 mcg. She says that her TSH was rechecked recently and they even had to cut down the dose given her report of a 15 pound weight gain in a month and the loose bowels. We will check a TSH just to make sure that it is not suggestive of hypothyroidism undertreated. 3. Depression. This is stable on her home escitalopram. She will continue that. 4. Estrogen replacement, status post total hysterectomy and oophorectomies. She will continue on her home dose of estradiol. 5. Venous thromboembolism prophylaxis since she is not moving around much right now. While in the hospital with abdominal pain I will start Lovenox. 6. COR STATUS: FULL. JOB #: [id number] EXT JOB #:[id number]
[2016-11-16] MEDS: KETOROLAC 30 MG/ML VIAL IVP SCH (21:52)
[2016-11-16] MEDS: ZOLPIDEM 5 MG TABLET PO PRN (21:53)
[2016-11-16] MEDS ORDERED: SODIUM CHLORIDE FLUSH 0.9% 10 ML SYRINGE IVP SCH (22:00)
[2016-11-16] MEDS ORDERED: LIDOCAINE PATCH 5% TOP PRN (23:32)
[2016-11-17] MEDS: ENOXAPARIN 40 MG/0.4 ML SYRINGE SUBQ SCH ×2 (00:03→08:37)
[2016-11-17] MEDS: traMADol 50 MG TABLET PO PRN ×6 (00:03→21:33)
[2016-11-17] MEDS: KETOROLAC 30 MG/ML VIAL IVP SCH (04:38)
[2016-11-17] MEDS: ONDANSETRON 4 MG/2 ML VIAL IVP PRN ×3 (04:38→19:59)
[2016-11-17] MEDS: SODIUM CHLORIDE 0.9% 1,000 ML IV SCH ×3 (04:39→17:32)
[2016-11-17] MEDS: SODIUM CHLORIDE FLUSH 0.9% 10 ML SYRINGE IVP SCH ×3 (04:39→21:30)
[2016-11-17 06:08] LABS: HGB - HEMOGLOBIN 11.7 g/dL (12.0-16.0); WHITE BLOOD COUNT 4.2 x10^3/uL (4.8-10.8)
[2016-11-17 06:09] LABS: HCT - HEMATOCRIT 33.5 % (37.0-47.0); MEAN CORPUSCULAR HEMOGLOBIN 32.4 pg (27.0-31.0); MEAN CORPUSCULAR HGB CONC 34.9 g/dL (32.0-36.0); MEAN CORPUSCULAR VOLUME 93.1 fL (81.0-99.0); MEAN PLATELET VOLUME 8.1 fL (7.9-10.8); RED BLOOD COUNT 3.6 10^6/uL (4.20-5.40); RED CELL DISTRIBUTION WIDTH 13.1 % (12.0-15.0)
[2016-11-17 06:18] LABS: CREATININE 0.5 mg/dL (0.4-1.0); POTASSIUM 3.7 mmol/L (3.5-5.0)
[2016-11-17] MEDS: POLYETHYLENE GLYCOL 3350 17 GM PACKET PO SCH (08:37)
[2016-11-17] MEDS: LEVOTHYROXINE 25 MCG TABLET PO SCH (08:38)
[2016-11-17] MEDS: ESCITALOPRAM 10 MG TABLET PO SCH (08:38)
[2016-11-17] MEDS: DICYCLOMINE 10 MG CAPSULE PO SCH (08:38)
[2016-11-17] MEDS: ESTRADIOL 1 MG TABLET PO SCH (08:38)
[2016-11-17] MEDS ORDERED: DICYCLOMINE 10 MG CAPSULE PO SCH ×2 (08:45→13:00)
[2016-11-17] MEDS ORDERED: POLYETHYLENE GLYCOL 3350 17 GM PACKET PO SCH (09:00)
[2016-11-17] MEDS ORDERED: traMADol 50 MG TABLET PO ONE (09:15)
[2016-11-17] MEDS ORDERED: DICYCLOMINE 10 MG CAPSULE PO ONE (09:15)
[2016-11-17] MEDS ORDERED: KETOROLAC 30 MG/ML VIAL IVP SCH (10:00)
[2016-11-17] MEDS ORDERED: HYOSCYAMINE SL 0.125 MG TABLET SL PRN (13:25)
--- NOTE | 2016-11-17 13:30 | PROVIDER PROGRESS NOTE ---
Subjective - Prog Note Date Prog Note Date: 11/17/16 Prog Note Time: 13:27 (late entry seen several x sinc this morning) - Subjective Pt reports feeling: No change (frustrated that pain persists did sleep 3 hrs. when asked if pain woke her or if she noted pain on waking, she indicates the former. has had flatus, no substantial relief with flatus, no appetite, today the pain is more across her lower abdomen "like being stabbed in the stomach continuosly" reports at home she has had occasion where needing to have BM is assoc'd w/ sig't pain, and gets relief w/ BM. Does not have a hx of Irritable Bowel syndrome/ IBS. When she saw her PCP with the same but less intense symptoms ~ a week ago, her PCP "cleared " her. said all she saw on imaging was the metal clip which is previously noted and did not suggest additional work up Finds no relief with the toradol, does find some relief with the ultram, does not note improvement w/ the bentyl. No dysuria 6pm; late in evening after starting suprep, reports 3 BM's "2 bloody" but were flushed. Hat placed in toilet for ongoiing eval; "no improved pain" with the BM's thus far Late evening , family in, patient lying in bed with visitors, smiling "pain is still as bad") Current Medications - Current Medications Current Medications: Active Medications Generic Name Dose Route Start Last Admin Trade Name Freq PRN Reason Stop Dose Admin Enoxaparin Sodium 40 mg 11/16/16 23:45 11/17/16 08:37 Lovenox SUBQ 40 mg DAILY TRACY Administration Escitalopram Oxalate 20 mg 11/17/16 09:00 11/17/16 08:38 Lexapro PO 20 mg DAILY TRACY Administration Estradiol 1.5 mg 11/17/16 09:00 11/17/16 08:38 Estrace PO 1.5 mg DAILY TRACY Administration Hyoscyamine 0.125 mg 11/17/16 13:25 11/17/16 17:32 Levsin SL 0.125 mg Q4H PRN Administration Spasms Sodium Chloride 1,000 mls @ 100 mls/hr 11/16/16 17:00 11/17/16 17:32 Normal Saline 0.9% IV 100 mls/hr .Q10H TRACY Administration Levothyroxine Sodium 25 mcg 11/17/16 09:00 11/17/16 08:38 Synthroid PO 25 mcg DAILY TRACY Administration Lidocaine 1 patch 11/16/16 23:32 11/17/16 00:11 Lidoderm Patch TOP 1 patch DAILY PRN Administration PAIN Ondansetron HCl 4 mg 11/16/16 18:29 11/17/16 19:59 Zofran Inj IVP 4 mg Q4HR PRN Administration Nausea / Vomiting Polyethylene Glycol 17 gm 11/17/16 09:00 11/17/16 08:37 Miralax PO 17 gm DAILY TRACY Administration Sodium Chloride 10 ml 11/16/16 15:42 11/17/16 19:59 Normal Saline Flush 0.9% IVP 10 ml PRN PRN Administration NEEDED PER PROVIDER ORDERS Sodium Chloride 10 ml 11/16/16 22:00 11/17/16 13:07 Normal Saline Flush 0.9% IVP Not Given Q8HR TRACY Sodium Sulfate/Potass Sulf/Mag Sulf 177 ml 11/17/16 15:30 11/17/16 15:55 Suprep Bowel Prep Kit PO 11/18/16 05:01 177 ml 1800,0500 TRACY Administration Tramadol HCl 100 mg 11/17/16 08:42 11/17/16 17:32 Ultram PO 100 mg Q4HR PRN Administration PAIN Zolpidem Tartrate 5 mg 11/16/16 19:56 11/16/16 21:53 Ambien PO 5 mg QPM PRN Administration Insomnia Butalb/Acetaminophen/Caffeine [Indbcn-Acbiqlpd-Bliz 50-300-40] 1 tab PO Q6H PRN 11/16/16 Escitalopram [Lexapro] 20 mg PO DAILY 11/16/16 Hydrocodone/Acetaminophen [Hydrocodon-Acetaminophen 5-325] 1 tab PO BID PRN Levothyroxine [Synthroid] 25 mcg PO Q48H 11/16/16 Estradiol [Estradiol] 1.5 mg PO DAILY 11/17/16 Objective - Vital Signs/Intake & Output Reviewed Vital Signs: Yes Vital Signs: Vital Signs x48h Temp Pulse Resp BP Pulse Ox 11/17/16 13:00 36.9 C 62 120/74 96 11/17/16 07:51 36.8 C 68 119/80 97 11/17/16 05:46 36.7 C 70 18 113/74 98 Intake & Output: Intake & Output 11/14/16 11/15/16 11/16/16 11/17/16 23:59 23:59 23:59 23:59 Intake Total 389 1360 Balance 389 1360 - Objective General Appearance: positive: Other (lying in bed quietly, non toxic appearing able to move onto back for exam much easier than yesterday, but indictes it stilll hurts alot.) ENT: positive: ENT inspection nml Respiratory: positive: No respiratory distress, Breath sounds nml Cardiovascular: positive: Regular rate & rhythm, Other (no tachycardia) Abdomen: positive: Other (obese, quiet but present bowel sounds (hypoactive), soft, pain now localized across lower abdomen, no guarding, winces with palpation of lower abdomen) - Lab Results Fish Bones: 11/17/16 05:33 11/17/16 05:33 Other Labs: Lab Results x24hrs 11/17/16 11/17/16 11/16/16 Range/Units 05:33 05:33 15:58 WBC 4.2 L (4.8-10.8) x10^3/uL RBC 3.60 L (4.20-5.40) 10^6/uL Hgb 11.7 L (12.0-16.0) g/dL Hct 33.5 L (37.0-47.0) % MCV 93.1 (81.0-99.0) fL MCH 32.4 H (27.0-31.0) pg MCHC 34.9 (32.0-36.0) g/dL RDW 13.1 (12.0-15.0) % Plt Count 164 (130-450) 10^3/uL MPV 8.1 (7.9-10.8) fL Sodium 138 (135-145) mmol/L Potassium 3.7 (3.5-5.0) mmol/L Chloride 104 (101-111) mmol/L Carbon Dioxide 27 (21-32) mmol/L Anion Gap 7.0 (6-13) BUN 12 (6-20) mg/dL Creatinine 0.5 (0.4-1.0) mg/dL Estimated GFR (MDRD) 135 (>89) Glucose 102 H (70-100) mg/dL Lactic Acid 1.2 (0.5-2.2) mmol/L Calcium 8.0 L (8.5-10.3) mg/dL Assessment/Plan - Problem List (1) Abdominal pain Impression: Given the migratory compenent, suspect IBS no; fever, no tachycardia, or other VS suggesting acute Abd and no finding on CT 11/16, normal lactate nontoxic appearing, Labs unchanged, no leukocytosis, + ( but quiet) bowel sounds. already had total hysterectomy (over time (hysterectomy, and R then left oophrectomy), so not REGISTRATION REPRESENTATIVE source, no dysuria Reviewed CT; not noted in report was substantial amount of stool in colon. ( although she reports only loose stool) Not much relief with the bentyl ((she denies any change in pain but appears to move more easily than yesterday Noted only 20 minutes of relief after dilaudid in ED (and as noted, I think likley frequent opiate dosing will agggrvate this/reduce motility further if this is IBS Contacated DR. Mota if could eval for colonoscopy as her pain has not improved (if spasm /spastic colonnoted when colonoscope touches bowel wall, that is helpful info even if not other pathology noted. and as IBS is dx of exclusion, need colonoscopy Patient was in agreement w/ this. Dr Mota in [place] currently Appreciate Dr. 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 Caba as outpatient in surgical clinic for colonoscopy." Before starting skeletal muscle relaxant, -will first evaluate response to cathartic (other bennett wont be able to tell which resulted in relief (if she gets some and -order outpatient PT - only give small # muscle relaxant on d/c if no relief w/ bowel evacuation ) Qualifiers: Abdominal location: left lower quadrant Qualified Code(s): R10.32 - Left lower quadrant pain
[2016-11-17] MEDS: SODIUM/POTASSIUM/MAG SULFATES 354 ML PREP KIT PO SCH (15:55)
--- NOTE | 2016-11-17 17:50 | PROVIDER PROGRESS NOTE ---
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 Caba as outpatient in surgical clinic for colonoscopy. - Current Meds Current Meds: Current Medications Generic Name Dose Route Start Last Admin Trade Name Freq PRN Reason Stop Dose Admin Enoxaparin Sodium 40 mg 11/16/16 23:45 11/17/16 08:37 Lovenox SUBQ 40 mg DAILY TRACY Administration Escitalopram Oxalate 20 mg 11/17/16 09:00 11/17/16 08:38 Lexapro PO 20 mg DAILY TRACY Administration Estradiol 1.5 mg 11/17/16 09:00 11/17/16 08:38 Estrace PO 1.5 mg DAILY TRACY Administration Hyoscyamine 0.125 mg 11/17/16 13:25 11/17/16 17:32 Levsin SL 0.125 mg Q4H PRN Administration Spasms Sodium Chloride 1,000 mls @ 100 mls/hr 11/16/16 17:00 11/17/16 17:32 Normal Saline 0.9% IV 100 mls/hr .Q10H TRACY Administration Levothyroxine Sodium 25 mcg 11/17/16 09:00 11/17/16 08:38 Synthroid PO 25 mcg DAILY TRACY Administration Lidocaine 1 patch 11/16/16 23:32 11/17/16 00:11 Lidoderm Patch TOP 1 patch DAILY PRN Administration PAIN Ondansetron HCl 4 mg 11/16/16 18:29 11/17/16 08:38 Zofran Inj IVP 4 mg Q4HR PRN Administration Nausea / Vomiting Polyethylene Glycol 17 gm 11/17/16 09:00 11/17/16 08:37 Miralax PO 17 gm DAILY TRACY Administration Sodium Chloride 10 ml 11/16/16 22:00 11/17/16 13:07 Normal Saline Flush 0.9% IVP Not Given Q8HR TRACY Sodium Sulfate/Potass Sulf/Mag Sulf 177 ml 11/17/16 15:30 11/17/16 15:55 Suprep Bowel Prep Kit PO 11/18/16 05:01 177 ml 1800,0500 TRACY Administration Tramadol HCl 100 mg 11/17/16 08:42 11/17/16 17:32 Ultram PO 100 mg Q4HR PRN Administration PAIN Zolpidem Tartrate 5 mg 11/16/16 19:56 11/16/16 21:53 Ambien PO 5 mg QPM PRN Administration Insomnia - Lab Result Fish Bone Diagrams: 11/17/16 05:33 11/17/16 05:33 Subjective - Subjective Patient Reports: Abdominal Pain (Patient seen at bedside, She states that she still has sharp pain in B/L lower abdomen with radiation to back. She does note that she occasionally feels "electrical bolts". She has been able to walk around , and notes that the pain hurts when she walks or switches position too fast. she denies any N/V/D. No issues reported by nurse.) Nursing Reports: Pain Objective Vital Signs: Vital Signs - 24 hr 11/16/16 11/17/16 11/17/16 21:00 01:10 05:46 Temperature 36.9 C 36.7 C 36.7 C Heart Rate [ 79 73 70 Brachial] Respiratory 18 18 18 Rate Blood Pressure 109/70 [Left Brachial artery] Blood Pressure 94/61 113/74 [Right Brachial artery] O2 Saturation 96 98 98 11/17/16 11/17/16 11/17/16 07:51 13:00 15:45 Temperature 36.8 C 36.9 C 36.7 C Heart Rate [ 68 62 80 Brachial] Respiratory 20 Rate Blood Pressure [Left Brachial artery] Blood Pressure 119/80 120/74 117/81 H [Right Brachial artery] O2 Saturation 97 96 98 Oxygen O2 Source Room air I&O (Last 24 Hrs): Intake and Output Totals x24h 11/15/16 11/16/16 11/17/16 23:59 23:59 23:59 Intake Total 389 3880 Balance 389 3880 General: Alert, Oriented x3, Cooperative HEENT: Atraumatic, EOMI Neck: Supple Neuro: Alert, CN 2-12 Grossly Intact Cardiovascular: Regular rate Respiratory: Breath sounds nml (Tender to palpation over right and left lower rib cage) Abdomen: Normal bowel sounds, Soft (+BS, morbidly obese abdomen. ND ,Tender to palpation B/L LQ & Suprapubic area. + TTP Lumbar spine.) Extremities: No cyanosis, No edema, Normal pulses, No tenderness/swelling Front/Back of Body, Lg (Color): 1 - OMM EXAM: Difficult to perform due to patient's habitus and pain. Right ASIS superior. Tender to palpation of pubic bone. 2 - Right Medial [place] Superior. 3 - T7-T10 Rotated Right. Tender to palpation. 4 - L2-L5 Rotated right TTP. Hyperlordosis of Lumbar Vertebrae. 5 - Sacrum: Right Sacral Base Posterior. TTP 6 - Iliotibial bands: No Tender points. Straight leg raise test: No Pain elicited B/L - Results Results: Laboratory Results WBC 4.2 x10^3/uL (4.8-10.8) L 11/17/16 05:33 RBC 3.60 10^6/uL (4.20-5.40) L 11/17/16 05:33 Hgb 11.7 g/dL (12.0-16.0) L 11/17/16 05:33 Hct 33.5 % (37.0-47.0) L 11/17/16 05:33 MCV 93.1 fL (81.0-99.0) 11/17/16 05:33 MCH 32.4 pg (27.0-31.0) H 11/17/16 05:33 MCHC 34.9 g/dL (32.0-36.0) 11/17/16 05:33 RDW 13.1 % (12.0-15.0) 11/17/16 05:33 Plt Count 164 10^3/uL (130-450) 11/17/16 05:33 MPV 8.1 fL (7.9-10.8) 11/17/16 05:33 Neut # 2.6 10^3/uL (1.5-6.6) 11/16/16 12:39 Lymph # 2.8 10^3/uL (1.5-3.5) 11/16/16 12:39 [place]ahan # 0.5 10^3/uL (0.0-1.0) 11/16/16 12:39 Eos # 0.1 10^3/uL (0.0-0.7) 11/16/16 12:39 Baso # 0.0 10^3/uL (0.0-0.1) 11/16/16 12:39 Absolute Nucleated RBC 0.00 x10^3/uL 11/16/16 12:39 Nucleated RBCs 0.0 /100WBC 11/16/16 12:39 Sodium 138 mmol/L (135-145) 11/17/16 05:33 Potassium 3.7 mmol/L (3.5-5.0) 11/17/16 05:33 Chloride 104 mmol/L (101-111) 11/17/16 05:33 Carbon Dioxide 27 mmol/L (21-32) 11/17/16 05:33 Anion Gap 7.0 (6-13) 11/17/16 05:33 BUN 12 mg/dL (6-20) 11/17/16 05:33 Creatinine 0.5 mg/dL (0.4-1.0) 11/17/16 05:33 Estimated GFR (MDRD) 135 (>89) 11/17/16 05:33 Glucose 102 mg/dL (70-100) H 11/17/16 05:33 Lactic Acid 1.2 mmol/L (0.5-2.2) 11/16/16 15:58 Calcium 8.0 mg/dL (8.5-10.3) L 11/17/16 05:33 Total Bilirubin 0.8 mg/dL (0.2-1.0) 11/16/16 12:39 AST 26 IU/L (10-42) 11/16/16 12:39 ALT 33 IU/L (10-60) 11/16/16 12:39 Alkaline Phosphatase 56 IU/L (42-121) 11/16/16 12:39 Total Protein 7.1 g/dL (6.7-8.2) 11/16/16 12:39 Albumin 4.0 g/dL (3.2-5.5) 11/16/16 12:39 Globulin 3.1 g/dL (2.1-4.2) 11/16/16 12:39 Albumin/Globulin Ratio 1.3 (1.0-2.2) 11/16/16 12:39 Lipase 16 U/L (22-51) L 11/16/16 12:39 TSH 0.88 uIU/mL (0.34-5.60) 11/16/16 12:39 Urine Color YELLOW 11/16/16 12:15 Urine Clarity CLEAR (CLEAR) 11/16/16 12:15 Urine pH 5.5 PH (5.0-7.5) 11/16/16 12:15 Ur Specific [place] >=1.030 (1.002-1.030) H 11/16/16 12:15 Urine Protein NEGATIVE mg/dL (NEGATIVE) 11/16/16 12:15 Urine Glucose (UA) NEGATIVE mg/dL (NEGATIVE) 11/16/16 12:15 Urine Ketones NEGATIVE mg/dL (NEGATIVE) 11/16/16 12:15 Urine Occult Blood NEGATIVE (NEGATIVE) 11/16/16 12:15 Urine Nitrite NEGATIVE (NEGATIVE) 11/16/16 12:15 Urine Bilirubin NEGATIVE (NEGATIVE) 11/16/16 12:15 Urine Urobilinogen 0.2 (NORMAL) E.U./dL (NORMAL) 11/16/16 12:15 Ur Leukocyte Esterase NEGATIVE (NEGATIVE) 11/16/16 12:15 Ur Microscopic Review NOT INDICATED 11/16/16 12:15 Urine Culture Comments NOT INDICATED 11/16/16 12:15 - Procedures Procedures: Procedures RESECTION OF LEFT OVARY, PERCUTANEOUS ENDOSCOPIC APPROACH (03/30/16)
[2016-11-18] MEDS: ZOLPIDEM 5 MG TABLET PO PRN (00:32)
[2016-11-18] MEDS: SODIUM CHLORIDE 0.9% 1,000 ML IV SCH (04:00)
[2016-11-18] MEDS: SODIUM/POTASSIUM/MAG SULFATES 354 ML PREP KIT PO SCH (05:50)
[2016-11-18] MEDS: traMADol 50 MG TABLET PO PRN (05:50)
[2016-11-18] MEDS: SODIUM CHLORIDE FLUSH 0.9% 10 ML SYRINGE IVP SCH (05:51)
[2016-11-18] MEDS: POLYETHYLENE GLYCOL 3350 17 GM PACKET PO SCH (09:06)
[2016-11-18] MEDS: LEVOTHYROXINE 25 MCG TABLET PO SCH (10:22)
[2016-11-18] MEDS: ENOXAPARIN 40 MG/0.4 ML SYRINGE SUBQ SCH (10:22)
[2016-11-18] MEDS: ESTRADIOL 1 MG TABLET PO SCH (10:23)
[2016-11-18] MEDS: ESCITALOPRAM 10 MG TABLET PO SCH (10:23)
--- NOTE | 2016-11-18 10:26 | Discharge Plan ---
Discharge Plan Disposition: 01 Home, Self Care Condition: Stable Prescriptions: Dicyclomine [Bentyl] 20 mg PO QID PRN #60 capsule PRN Reason: Spasms Sennosides [Senna] 8.6 mg PO DAILY #60 tablet traMADol [Ultram] 100 mg PO Q6H PRN #20 tablet PRN Reason: Pain Diet: Regular (high fiber) Activity Restrictions: No Restrictions Shower Restrictions: No Driving Restrictions: No Weight Bearing: Full Weight Additional Instructions or Follow Up instructions: Abdominal Pain: -Evaluation included CT abdomen unchanged from CT ; normal CT abdomen , no bowel obstruction, no bowel inflammatory process, no -free air, no fluid in abdomen or pelvis, normal appendix (CT did show significant amount of stool) -normal lactate (no inflammation, no suggestion of sepsis) -urinalysis unremarkable -Chemistries and complete blood count normal TSH normal 0.88 Surgical consultation: no surgical indication for exploration currently Your pain did improve after bowel evacuation Keep a food diary (if this is IBS, you may identify trigger foods) goal BM daily Rx for ultram, and for dicyclomine (smooth muscle antispasmodic) The dicylomine (trade name Bentyl) is written 20 mg 4 x daily if needed for bowel spasm, could take scheduled 4 x daily if having persistent discomfort, If little releif after 1 week of 20 mg 4x daily, contact PCP re: dose titration upward. Call Dr. Caba/ and Dr Michaels office (general surgery at [facility]) for a colonoscopy (check w/ PCP if you need a referral) PCP could consider referral for physical therapy if there was a muskuloskeletal component, but given the relief with bowel evacuation, that is likely the less significant trigger No Smoking: If you smoke, Please STOP! Call for help. Follow-up with: Mel Nieves DO [Primary Care Provider] -
[2016-11-18 13:04] VITALS: BP 131/79
--- NOTE | 2016-11-19 06:26 | DISCHARGE SUMMARY ---
DATE OF ADMISSION: 11/16/2016 DATE OF DISCHARGE: 11/18/2016 PRIMARY CARE PROVIDER: Dr. Nieves, in [place]. PRIMARY DISCHARGE DIAGNOSES: 1. Acute abdominal pain. 2. Suspected irritable bowel syndrome 3. Constipation SECONDARY DIAGNOSES: 1. Hypothyroidism. 2. Depression. 3. Gastroesophageal reflux disease. 4. Morbid obesity. 5. Migraines. 6. Chronic pain from rotator cuff injury. CONSULTATIONS: Dr. William Webber of general surgery. PROCEDURES: None. DIAGNOSTIC IMAGING: CT scan of the abdomen and pelvis 11/16/2016 showed no acute findings, and specifically no bowel obstruction or inflammatory process, normal appendix, no free air and no fluid collection in the abdomen or pelvis. DIAGNOSTIC LABORATORY STUDIES: White count 6.1 and repeat was 4.2, hemoglobin and hematocrit 12.9 and 37.6, platelets 200,000. Admission sodium 139, potassium of 3.9, chloride 101, bicarbonate 28, BUN 12, creatinine 0.6, glucose 94, AST, ALT 26 and 33, total protein 7.1, total bilirubin 0.8, albumin 4.0. A urinalysis was unremarkable other than a specific gravity of greater than 1.030. HOSPITAL COURSE BY PROBLEMS: 1. Acute abdominal pain. The patient is a 41-year-old female who for approximately 2 weeks had steady abdominal pain, which she states was approximately a 5/10. She actually had been in the emergency room about a month prior with complaints of right upper quadrant pain and had been discharged on Bentyl; however, she stopped taking it when she says the pain had improved. She had also gone to see her primary provider and based on a CT which was normal the patient said that she "signed off on this." On the day of admission, she had an abrupt onset of a greater degree of this pain, which she reported as 10/ 10. There was no associated vomiting or diarrhea. No hematochezia or melena. She reports that she normally has regular bowel movements. However, recently has had only loose bowel movements. There was no associated dysuria and also no fever, chills. She has already undergone a hysterectomy, as well as a left and right oophorectomy, therefore, this is not CLERICAL COORDINATOR in origin. A CT of the abdomen was unremarkable. She had no leukocytosis, her laboratory diagnostics were unremarkable including chemistries, CBC and liver function tests. Even though the CT was negative, given some of her history indicating that at times she has considerable relief of pain after bowel movement, we reviewed the CT and it actually did have a considerable amount of stool. The suspected diagnosis at this time is irritable bowel syndrome, but given that this is a diagnosis of exclusion, she still would need a colonoscopy. Surgery was consulted and they indicated that she could be set up for colonoscopy as an outpatient. Even if there are no findings, if she has a spastic colon during that procedure, that is also informative. We had started her on Bentyl, as well as p.r.n. Ultram and scheduled Toradol. She denies any significant relief from those. Once we did realize that she did have a significant amount of stool in her colon she got a bowel prep in the form of Suprep and once she was evacuated she actually had a remarkable improvement in pain. She is going to continue the Bentyl 20 mg 4 times daily or if she had considerable issues she could do 4 times daily if needed for pain. She still has outpatient colonoscopy and has some p.r.n. Tramadol. Additionally, Dr. Webber, the consulting surgeon, trained in osteopathic medicine, he did osteopathic exam that indicates she does have some muscular osteopathic findings including thoracolumbar somatic dysfunctions, sacral torsion and a suspected right posterior located innominate, versus right superior innominate shear, and outpatient physical therapy could be considered. He also recommended possible muscle relaxant, but given her considerable relief with the colonoscopy, that was deferred at this time. FOLLOWUP: She should followup with Dr. Nieves if she requires a referral for the colonoscopy, but should undergo colonoscopy. DISCHARGE MEDICATIONS: She continues on her prior home medications of: 1. Estradiol 1.5 mg. once daily. 2. Hydrocodone/acetaminophen 5/325 mg, 1 tab twice daily if needed for pain. 3. Levothyroxine 25 mcg every 48 hours. 4. Escitalopram 20 mg. once daily. 5. Butalbital/acetaminophen/caffeine 50/300/40, 1 tab every 6 hours as needed for migraines. 6. Tramadol new prescription 100 mg every 6 hours as needed for pain, 20 tablets. 7. Senna twice daily. 8. Bentyl, also a new prescription, 20 mg 4 times daily if needed for spasm. PHYSICAL EXAMINATION ON THE DAY OF DISCHARGE: VITAL SIGNS: Afebrile, heart rate 76, blood pressure 131/79, respiratory rate 18 , 96% oxygenation on room air. The patient when I first saw her this morning was sleeping, which was remarkable for her as she has not been sleeping with the abdominal pain previously. Later when she was awake for exam she was remarkably more comfortable. GENERAL: She is alert, oriented and appropriate. CHEST: Clear to auscultation with unlabored respirations. HEART: Regular S1, S2. ABDOMEN: Generally obese, however, it is soft and nontender and today she permits full palpation without any discomfort. EXTREMITIES: Unremarkable, no cyanosis and no edema. JOB #: [id number] EXT JOB #:[id number] [email or web address]
== END 2016-11-18 11:00 | disposition home or self-care (01) ==
LOC: ED 12:05 → MS 15:09 → ED 15:35
PROVIDERS: ADMIT Nurse Practitioner; ATTEND Nurse Practitioner
DX: R10.32 Left lower quadrant pain (principal); K59.00 Constipation, unspecified; E03.9 Hypothyroidism, unspecified; F32.9 Major depressive disorder, single episode, unspecified; K21.9 Gastro-esophageal reflux disease without esophagitis; E66.01 Morbid (severe) obesity due to excess calories; G43.909 Migraine, unspecified, not intractable, without status migrainosus; G89.29 Other chronic pain; R10.814 Left lower quadrant abdominal tenderness; F41.9 Anxiety disorder, unspecified; M54.9 Dorsalgia, unspecified; Z90.710 Acquired absence of both cervix and uterus; Z90.722 Acquired absence of ovaries, bilateral; Z90.79 Acquired absence of other genital organ(s); Z68.42 Body mass index [BMI] 45.0-49.9, adult; Z87.440 Personal history of urinary (tract) infections; Z79.890 Hormone replacement therapy; Z90.49 Acquired absence of other specified parts of digestive tract; Z80.0 Family history of malignant neoplasm of digestive organs
CPT/HCPCS: 36415; 74177; 80048; 80053; 81003; 83605; 83690; 84443; 85025; 85027; 96372; 96374; 96375; 96376; 99217; 99218; 99224; 99284; 99285; A9270; J1170; J1650; Q9967; 81001; 87086

== ENCOUNTER 2017-01-25 11:12 | Emergency (ER) | payer OTHER, MEDICAID ==
[2017-01-25 11:50] LABS: BILIRUBIN,URINE NEGATIVE (NEGATIVE); PH,URINE 5.5 PH (5.0-7.5)
[2017-01-25 12:05] LABS: BASOPHILS % (AUTO) 0.5 %; EOSINOPHILS % (AUTO) 0.8 %; HCT - HEMATOCRIT 37.3 % (37.0-47.0); HGB - HEMOGLOBIN 12.8 g/dL (12.0-16.0); LYMPHOCYTES # (AUTO) 2.1 10^3/uL (1.5-3.5); LYMPHOCYTES % (AUTO) 36.4 %; MEAN CORPUSCULAR HEMOGLOBIN 31.8 pg (27.0-31.0); MEAN CORPUSCULAR HGB CONC 34.3 g/dL (32.0-36.0); MEAN CORPUSCULAR VOLUME 92.9 fL (81.0-99.0); MEAN PLATELET VOLUME 7.8 fL (7.9-10.8); MONOCYTES # (AUTO) 0.4 10^3/uL (0.0-1.0); NEUTROPHILS # (AUTO) 3.2 10^3/uL (1.5-6.6); NEUTROPHILS % (AUTO) 55.3 %; NUCLEATED RED BLOOD CELLS AUTO 0.1 /100WBC; RED BLOOD COUNT 4.02 10^6/uL (4.20-5.40); UNCORRECTED WHITE BLOOD COUNT 5.7 x10^3/uL; WHITE BLOOD COUNT 5.7 x10^3/uL (4.8-10.8)
[2017-01-25 12:07] LABS: HCG UR QUAL NEGATIVE; UA CHARGE (STRIP ONLY) YES; UR CULTURE IF IND NOT INDICATED
[2017-01-25 12:17] LABS: ALBUMIN/GLOBULIN RATIO 1.2 (1.0-2.2); BILIRUBIN,TOTAL 0.3 mg/dL (0.2-1.0); CALCIUM 8.5 mg/dL (8.5-10.3); CREATININE 0.6 mg/dL (0.4-1.0)
[2017-01-25] MEDS ORDERED: KETOROLAC 60 MG/2 ML VIAL IVP STA (12:20)
[2017-01-25] MEDS ORDERED: SODIUM CHLORIDE 0.9% 1,000 ML IV ONE (12:20)
--- NOTE | 2017-01-25 13:20 | ED Physician Documentation ---
History of Present Illness - Stated complaint Stated Complaint: R SIDE ABD PX - Chief complaint Chief Complaint: Abd Pain - Additonal information Additional information: hx from pt 41 female s/p sonia and TAHBSO to ER with one week of worsening ruq and R flank pain no fever + nausea had diarrhea then constipation now nl BM no urinary sx no relief with apap - avoids narcotics 2/2 constipation Review of Systems Constitutional: denies: Fever, Chills Cardiac: denies: Chest pain / pressure Respiratory: denies: Dyspnea, Cough GI: reports: Abdominal Pain, Nausea, Constipation, Diarrhea : reports: 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. 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 - Present Medications Home Medications: Ambulatory Orders Medication Instructions Recorded Confirmed Hydrocodone/Acetaminophen 1 tab PO BID PRN 11/16/16 01/25/17 [Hydrocodon-Acetaminophen 5-325] Levothyroxine [Synthroid] 25 mcg PO Q48H 11/16/16 01/25/17 Estradiol 1.5 mg PO DAILY 11/17/16 01/25/17 Naproxen 500 mg PO BID PRN #20 tablet 01/25/17 Tamsulosin [Flomax] 0.4 mg PO DAILY #7 capsule 01/25/17 - Allergies Allergies/Adverse Reactions: Allergies Allergy/AdvReac Type Severity Reaction Status Date / Time No Known Drug Allergies Allergy Verified 01/25/17 11:26 - Social History Does the pt smoke?: No Smoking Status: Former smoker Does the pt drink ETOH?: No Does the pt have substance abuse?: No - Immunizations Immunizations are current?: Yes - POLST Patient has POLST: No PD ED PE NORMAL - Neck Neck: Supple, no meningeal sign - Cardiac Cardiac: RRR - Respiratory Respiratory: No respiratory distress, Clear bilaterally - Abdomen Abdomen: Soft, Other (ruq TTP) - Back Back: No: No CVA TTP (+ R CVA TTP) - Derm Derm: Normal color - Extremities Extremities: No deformity - 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 Results - Vitals Vitals: Vital Signs - 24 hr 01/25/17 01/25/17 01/25/17 11:23 13:34 15:39 Temperature 36.7 C Heart Rate 81 71 76 Respiratory 15 18 18 Rate Blood Pressure 152/93 H 121/75 132/82 H O2 Saturation 99 100 100 Oxygen O2 Source Room air - Labs Labs: Laboratory Tests 01/25/17 01/25/17 01/25/17 11:40 11:58 11:58 WBC 5.7 RBC 4.02 L Hgb 12.8 Hct 37.3 MCV 92.9 MCH 31.8 H MCHC 34.3 RDW 13.0 Plt Count 209 MPV 7.8 L Neut # 3.2 Lymph # 2.1 [place] # 0.4 Eos # 0.0 Baso # 0.0 Absolute Nucleated RBC 0.01 Nucleated RBCs 0.1 Sodium 138 Potassium 4.0 Chloride 104 Carbon Dioxide 28 Anion Gap 6.0 BUN 17 Creatinine 0.6 Estimated GFR (MDRD) 110 Glucose 94 Calcium 8.5 Total Bilirubin 0.3 AST 20 ALT 27 Alkaline Phosphatase 51 Total Protein 7.0 Albumin 3.8 Globulin 3.2 Albumin/Globulin Ratio 1.2 Lipase 20 L Urine Color YELLOW Urine Clarity CLEAR Urine pH 5.5 Ur Specific [place] 1.010 Urine Protein NEGATIVE Urine Glucose (UA) NEGATIVE Urine Ketones NEGATIVE Urine Occult Blood NEGATIVE Urine Nitrite NEGATIVE Urine Bilirubin NEGATIVE Urine Urobilinogen 0.2 (NORMAL) Ur Leukocyte Esterase NEGATIVE Ur Microscopic Review NOT INDICATED Urine Culture Comments NOT INDICATED Urine HCG, Qual NEGATIVE - Rads (name of study) CT abd pelvis Radiology: See rad report (nl appendix, non obstructing renal calc, no uretolithiasis, diverticulosis no -itis) PD MEDICAL DECISION MAKING - ED course ED course: nl labs and urine, CT shows kidney stones though none in ureter now, no other acute process pain is now gone perhaps pt has now passed a stone Departure - Departure Disposition: 01 Home, Self Care Clinical Impression: Abdominal pain Qualifiers: Abdominal location: unspecified location Qualified Code(s): R10.9 - Unspecified abdominal pain Instructions: ED Abdominal Pain Unkn Cause, ED Stone Renal W Colic Follow-Up: Mel Nieves DO [Primary Care Provider] - Prescriptions: Tamsulosin [Flomax] 0.4 mg PO DAILY #7 capsule Naproxen 500 mg PO BID PRN #20 tablet PRN Reason: Pain Comments: Your labs were fine The CT scan showed some stones in the right kidney though none were seen passing in the ureter at the time the CT scan was done No other major abnormalities were seen on the CT scan - no bowel obstruction/ perforation/infection, no aneurysm, no internal bleeding, no appendicitis etc Hopefully now that the pain is gone, it will not come back If the pain does return, I recommend a NSAID such as naproxen for the pain and flomax to relax the ureter and help stones pass. You can filter the urine and try to catch the stone and have your PMD send it to the lab for testing - if the kind of stone can be determined you might be able to make diet modification to prevent future stones Forms: Activity restrictions
[2017-01-25] MEDS ORDERED: KETOROLAC 60 MG/2 ML VIAL IM STA (13:26)
[2017-01-25] MEDS ORDERED: KETOROLAC 60 MG/2 ML VIAL ONE (13:38)
--- NOTE | 2017-01-25 14:32 | CT Preliminary Report ---
Exam: CT Abdomen/Pelvis W/O IMPRESSION: 1. Tiny nonobstructing right renal calcification. No ureteral stone or hydronephrosis. 2. Minimal diverticulosis and other chronic or incidental findings. Normal appendix. [facility] SITE ID: [id number]
--- NOTE | 2017-01-25 14:34 | CT Report ---
EXAM: CT ABDOMEN AND PELVIS (CT KUB) EXAM DATE: 01/25/2017 01:56 PM. CLINICAL HISTORY: RUQ R flank pain. COMPARISONS: 11/16/2016. TECHNIQUE: Routine axial helical CT imaging was performed through the abdomen and pelvis without IV c ontrast. Reconstructions: Coronal and sagittal. In accordance with CT protocol optimization, one or more of the following dose reduction techniques w ere utilized for this exam: automated exposure control, adjustment of mA and/or KV based on patient s ize, or use of iterative reconstructive technique. FINDINGS: Lung Bases: Unremarkable. Right Kidney/Ureter: Tiny nonobstructing lower pole calcification. No ureteral stone, mass, or hydron ephrosis. Left Kidney/Ureter: No stones, hydronephrosis, or hydroureter. No perinephric fat stranding. Other Solid Organs: Tiny peripheral splenic calcification unchanged. Otherwise unremarkable liver, sp ifeoma, pancreas, and adrenal glands. Gallbladder/Bile Ducts: Surgically absent. No ductal dilation. Peritoneal Cavity: No free fluid, free air or siobhan adenopathy. Minimal colonic diverticulosis. Bowel otherwise is grossly unremarkable. Normal appendix. Pelvic Organs: Unremarkable urinary bladder. Absent uterus. Vasculature: Unremarkable. Other: None. IMPRESSION: 1. Tiny nonobstructing right renal calcification. No ureteral stone or hydronephrosis. 2. Minimal diverticulosis and other chronic or incidental findings. Normal appendix. [facility] Referring Provider Line: [phone] SITE ID: [id number]
[2017-01-25 16:11] VITALS: BP 134/84
== END 2017-01-25 16:25 | disposition home or self-care (01) ==
LOC: ED 11:12
DX: R10.11 Right upper quadrant pain (principal); R10.31 Right lower quadrant pain; N20.0 Calculus of kidney; Z87.891 Personal history of nicotine dependence
CPT/HCPCS: 36415; 74176; 80053; 81001; 81003; 81025; 83690; 85025; 87086; 96372; 99283; 99284

== ENCOUNTER 2017-03-16 11:05 | Emergency (ER) | payer OTHER, MEDICAID ==
[2017-03-16 11:31] LABS: BILIRUBIN,URINE NEGATIVE (NEGATIVE)
[2017-03-16 11:35] LABS: HCG UR QUAL NEGATIVE; UA CHARGE (STRIP ONLY) YES; UR CULTURE IF IND NOT INDICATED
[2017-03-16 11:48] LABS: BASOPHILS % (AUTO) 0.5 %; EOSINOPHILS # (AUTO) 0.1 10^3/uL (0.0-0.7); EOSINOPHILS % (AUTO) 0.8 %; HCT - HEMATOCRIT 37.5 % (37.0-47.0); HGB - HEMOGLOBIN 12.9 g/dL (12.0-16.0); LYMPHOCYTES % (AUTO) 29.4 %; MEAN CORPUSCULAR HEMOGLOBIN 31.6 pg (27.0-31.0); MEAN CORPUSCULAR HGB CONC 34.5 g/dL (32.0-36.0); MEAN CORPUSCULAR VOLUME 91.8 fL (81.0-99.0); MEAN PLATELET VOLUME 8.3 fL (7.9-10.8); MONOCYTES # (AUTO) 0.4 10^3/uL (0.0-1.0); MONOCYTES % (AUTO) 6.4 %; NEUTROPHILS # (AUTO) 4.3 10^3/uL (1.5-6.6); NEUTROPHILS % (AUTO) 62.9 %; RED BLOOD COUNT 4.09 10^6/uL (4.20-5.40); RED CELL DISTRIBUTION WIDTH 12.7 % (12.0-15.0); UNCORRECTED WHITE BLOOD COUNT 6.8 x10^3/uL; WHITE BLOOD COUNT 6.8 x10^3/uL (4.8-10.8)
[2017-03-16 11:59] LABS: ALBUMIN/GLOBULIN RATIO 1.4 (1.0-2.2); BILIRUBIN,TOTAL 0.6 mg/dL (0.2-1.0); CALCIUM 9.4 mg/dL (8.5-10.3); CREATININE 0.6 mg/dL (0.4-1.0); TOTAL PROTEIN 7.5 g/dL (6.7-8.2)
--- NOTE | 2017-03-16 14:29 | ED Physician Documentation ---
PD HPI ABD PAIN - Stated complaint Stated Complaint: ABD PX - Chief complaint Chief Complaint: Abd Pain - History obtained from History obtained from: Patient - History of Present Illness Timing - onset: Other (This is a 41-year-old woman who as of late has been dealing with chronic intermittent abdominal pain of unclear etiology. I admitted her in November, there was no specific diagnosis, potentially thought to be IBS. She was seen here about a month and a half ago for left flank pain, a CT was done showing nonobstructing right renal stone, diverticulosis, was otherwise negative. Since then she has occasional left flank pain that is much worse today, comes in waves and is associated with nausea but no vomiting. Her bowel movements have been fairly normal. There is no fever or urinary complaint.) Review of Systems Constitutional: denies: Fever, Chills GI: reports: Abdominal Pain, Nausea. 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 - Present Medications Home Medications: Ambulatory Orders Medication Instructions Recorded Confirmed Levothyroxine [Synthroid] 25 mcg PO Q48H 11/16/16 03/16/17 Estradiol 1.5 mg PO DAILY 11/17/16 03/16/17 Dicyclomine HCl 20 mg PO QID PRN #20 tablet 03/16/17 Oxycodone HCl/Acetaminophen 1 - 2 tab PO Q4H PRN #15 tablet 03/16/17 [Percocet 5-325 mg Tablet] - Allergies Allergies/Adverse Reactions: Allergies Allergy/AdvReac Type Severity Reaction Status Date / Time No Known Drug Allergies Allergy Verified 01/25/17 11:26 - Social History Does the pt smoke?: No Smoking Status: Never smoker Does the pt drink ETOH?: No Does the pt have substance abuse?: No - Immunizations Immunizations are current?: Yes - POLST Patient has POLST: No PD ED PE NORMAL - Vitals Vital signs reviewed: Yes - General General: Alert and oriented X 3, No acute distress - Abdomen Abdomen: Normal bowel sounds, Soft, Non tender - 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, Normal speech Results - Vitals Vitals: Vital Signs - 24 hr 03/16/17 11:16 Temperature 36.5 C Heart Rate 77 Respiratory 17 Rate Blood Pressure 152/95 H O2 Saturation 99 Oxygen O2 Source Room air - Labs Labs: Laboratory Tests 03/16/17 03/16/17 03/16/17 11:23 11:37 11:37 WBC 6.8 RBC 4.09 L Hgb 12.9 Hct 37.5 MCV 91.8 MCH 31.6 H MCHC 34.5 RDW 12.7 Plt Count 245 MPV 8.3 Neut # 4.3 Lymph # 2.0 [place] # 0.4 Eos # 0.1 Baso # 0.0 Absolute Nucleated RBC 0.00 Nucleated RBC % 0.0 Sodium 136 Potassium 4.0 Chloride 103 Carbon Dioxide 24 Anion Gap 9.0 BUN 18 Creatinine 0.6 Estimated GFR (MDRD) 110 Glucose 104 H Calcium 9.4 Total Bilirubin 0.6 AST 26 ALT 32 Alkaline Phosphatase 58 Total Protein 7.5 Albumin 4.4 Globulin 3.1 Albumin/Globulin Ratio 1.4 Lipase 28 Urine Color YELLOW Urine Clarity CLEAR Urine pH 6.0 Ur Specific [place] >=1.030 H Urine Protein NEGATIVE Urine Glucose (UA) NEGATIVE Urine Ketones NEGATIVE Urine Occult Blood NEGATIVE Urine Nitrite NEGATIVE Urine Bilirubin NEGATIVE Urine Urobilinogen 0.2 (NORMAL) Ur Leukocyte Esterase NEGATIVE Ur Microscopic Review NOT INDICATED Urine Culture Comments NOT INDICATED Urine HCG, Qual NEGATIVE PD MEDICAL DECISION MAKING - ED course ED course: This is a 41-year-old woman with recurrent abdominal pain of unclear etiology, previously thought to be potentially IBS but she does not have the classic bowel movement changes associated with that. Lab work is negative and she had a recent negative CAT scan. She is scheduled for a colonoscopy in the next couple of months which I think is appropriate. Departure - Departure Disposition: 01 Home, Self Care Clinical Impression: Abdominal pain Qualifiers: Abdominal location: unspecified location Qualified Code(s): R10.9 - Unspecified abdominal pain Condition: Good Record reviewed to determine appropriate education?: Yes Instructions: Abdominal Pain Prescriptions: Dicyclomine HCl 20 mg PO QID PRN #20 tablet PRN Reason: Abdominal Cramps Oxycodone HCl/Acetaminophen [Percocet 5-325 mg Tablet] 1 - 2 tab PO Q4H PRN #15 tablet PRN Reason: Pain Comments: Return if worse, follow-up for colonoscopy as is scheduled. Do not drink or drive while taking narcotic pain medication. Note that many narcotic pain relievers also contain Tylenol/acetaminophen. Please ensure that your total dose of acetaminophen from all sources does not exceed 3 g (3000 mg) per day. You may get constipated while on this medication. Take a stool softener such as Colace twice a day while you are on it. Also add an sepb-zct-jvuqebo laxative such as senna or MiraLAX on any day that you do not have a bowel movement. If you received a narcotic pain medication or sedative while in the emergency department, do not drive for the next 24 hours. Your blood pressure was elevated today on check into the emergency department. This does not mean that you have hypertension, it is a common phenomenon to come to the emergency department and have elevated blood pressure. I recommend that she see your primary care physician within the week to have it rechecked when you are feeling better.
[2017-03-16 14:36] VITALS: BP 139/91
== END 2017-03-16 14:36 | disposition home or self-care (01) ==
LOC: ED 11:05
DX: R10.9 Unspecified abdominal pain (principal); R03.0 Elevated blood-pressure reading, without diagnosis of hypertension
CPT/HCPCS: 36415; 80053; 81001; 81003; 81025; 83690; 85025; 87086; 99283

== ENCOUNTER 2017-07-07 08:00 | Outpatient (CLI) | payer OTHER, MEDICAID ==
[2017-07-07 12:41] LABS: INR 0.9 (0.8-1.2); PT - PROTHROMBIN TIME 10.7 secs (9.9-12.6)
[2017-07-07 12:43] LABS: BASOPHILS % (AUTO) 0.5 %; EOSINOPHILS # (AUTO) 0.1 10^3/uL (0.0-0.7); HGB - HEMOGLOBIN 13.3 g/dL (12.0-16.0); LYMPHOCYTES # (AUTO) 1.7 10^3/uL (1.5-3.5); LYMPHOCYTES % (AUTO) 31.5 %; MEAN CORPUSCULAR HEMOGLOBIN 31.9 pg (27.0-31.0); MEAN CORPUSCULAR HGB CONC 33.5 g/dL (32.0-36.0); MEAN CORPUSCULAR VOLUME 95.4 fL (81.0-99.0); MEAN PLATELET VOLUME 9.1 fL (7.9-10.8); MONOCYTES # (AUTO) 0.4 10^3/uL (0.0-1.0); MONOCYTES % (AUTO) 7.2 %; NEUTROPHILS # (AUTO) 3.3 10^3/uL (1.5-6.6); NEUTROPHILS % (AUTO) 59.8 %; PLT - PLATELET COUNT 217 10^3/uL (130-450); RED BLOOD COUNT 4.17 10^6/uL (4.20-5.40); RED CELL DISTRIBUTION WIDTH 13.2 % (12.0-15.0); WHITE BLOOD COUNT 5.5 x10^3/uL (4.8-10.8)
[2017-07-07 13:44] LABS: % IRON SATURATION 15 % (20-50); ALBUMIN 4.2 g/dL (3.2-5.5); ALBUMIN/GLOBULIN RATIO 1.3 (1.0-2.2); ALKALINE PHOSPHATASE 53 IU/L (42-121); ALT ALANINE AMINOTRANSFERASE 27 IU/L (10-60); AST ASPARTATE AMINOTRANSFERASE 24 IU/L (10-42); BILIRUBIN,TOTAL 0.5 mg/dL (0.2-1.0); BUN - BLOOD UREA NITROGEN 19 mg/dL (6-20); CALCIUM 8.9 mg/dL (8.5-10.3); CARBON DIOXIDE - CO2 26 mmol/L (21-32); CHLORIDE 102 mmol/L (101-111); CHOL/HDL RATIO 4.7 (<4.4); CHOLESTEROL 213 mg/dL; CREATININE 0.6 mg/dL (0.4-1.0); GFR - MDRD 109 (>89); GLUCOSE 98 mg/dL (70-100); HDL CHOLESTEROL 45 mg/dL; IRON 54 ug/dL (28-170); LDL CHOLESTEROL,CALCULATED 114 mg/dL; LDL/HDL RATIO 2.5 (<4.4); SODIUM 135 mmol/L (135-145); TOTAL IRON BINDING CAPACITY 360 ug/dL (250-450); TOTAL PROTEIN 7.4 g/dL (6.7-8.2); TRANSFERRIN 257 mg/dL (192-382); VLDL CHOLESTEROL 54 mg/dL
[2017-07-07 13:48] LABS: THYROID STIMULATING HORMONE < 0.08 uIU/mL (0.34-5.60)
[2017-07-07 13:59] LABS: FOLATE 15.78 ng/mL (5.90 - >24.8)
[2017-07-07 14:12] LABS: HB2 TOTAL 14.4 g/dL; HEMOGLOBIN A1C 0.48 g/dL; HEMOGLOBIN A1C % 5.2 % (4.6-6.2)
== END 2017-07-07 08:01 | disposition home or self-care (01) ==
LOC: LAB.N 08:00
PROVIDERS: ATTEND Surgery
DX: Z01.812 Encounter for preprocedural laboratory examination (principal); Z13.0 Encounter for screening for diseases of the blood and blood-forming organs and certain disorders involving the immune mechanism; E46 Unspecified protein-calorie malnutrition
CPT/HCPCS: 36415; 80053; 80061; 82306; 82607; 82728; 82746; 83036; 83540; 83721; 84425; 84443; 84466; 84481; 85025; 85610; 85730

== ENCOUNTER 2017-07-28 14:49 | Emergency (ER) | payer OTHER, MEDICAID ==
[2017-07-28] MEDS ORDERED: HYDROcod/ACETAM 5/325 MG TABLET PO STA (15:44)
--- NOTE | 2017-07-28 15:46 | ED Physician Documentation ---
PD HPI LOWER EXT INJURY - Stated complaint Stated Complaint: GLF/LOWER BACK PX - Chief complaint Chief Complaint: Ext Problem - History obtained from History obtained from: Patient - History of Present Illness PD HPI LOW EXT INJURY LOCATION: Other (Ground-level fall on the ice at work today hitting her low back and twisting her left knee. She is able to walk with a lot of pain. 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, 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 - Present Medications Home Medications: Ambulatory Orders Medication Instructions Recorded Confirmed Estradiol 1.5 mg PO DAILY 11/17/16 07/28/17 Escitalopram Oxalate [Lexapro] 20 mg PO DAILY 07/28/17 07/28/17 HYDROcod/ACETAM 5/325 [[place] 5/325] 1 - 2 ea PO Q6H PRN #10 tablet 07/28/17 Hydrocodone/Acetaminophen [Vicodin 1 each PO .FREQ PRN 07/28/17 07/28/17 5-300 mg Tablet] - Allergies Allergies/Adverse Reactions: Allergies Allergy/AdvReac Type Severity Reaction Status Date / Time No Known Drug Allergies Allergy Verified 07/28/17 15:06 - Social History Does the pt smoke?: No Smoking Status: Never smoker Does the pt drink ETOH?: No Does the pt have substance abuse?: No - Immunizations Immunizations are current?: Yes - POLST Patient has POLST: No PD ED PE NORMAL - Vitals Vital signs reviewed: Yes - General General: Alert and oriented X 3, No acute distress - Neck Neck: Supple, no meningeal sign, No bony TTP - Abdomen Abdomen: Non tender - Back Back: Other (TTP around L5) - Extremities Extremities: Other (Left knee is tender sort of anteriorly and diffusely without ligamentous laxity.) - 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, Normal speech Results - Vitals Vitals: Vital Signs - 24 hr 07/28/17 15:05 Temperature 36.1 C L Heart Rate 70 Respiratory 17 Rate Blood Pressure 148/87 H O2 Saturation 97 Oxygen O2 Source Room air - Rads (name of study) Xrays Lumbar spine and L knee Radiology: EMP read contemporaneously (Some degenerative changes in the left knee effusion without acute fractures.) Departure - Departure Disposition: 01 Home, Self Care Clinical Impression: Fall due to ice or snow Qualifiers: Encounter type: initial encounter Qualified Code(s): W00.9XXA - Unspecified fall due to ice and snow, initial encounter Back contusion Qualifiers: Encounter type: initial encounter Laterality: left Qualified Code(s): S20.222A - Contusion of left back wall of thorax, initial encounter Left knee sprain Qualifiers: Encounter type: initial encounter Involved ligament of knee: unspecified ligament Qualified Code(s): S83.92XA - Sprain of unspecified site of left knee, initial encounter Condition: Good Record reviewed to determine appropriate education?: Yes Instructions: ED Low Back Pain Injury Prescriptions: HYDROcod/ACETAM 5/325 [[place] 5/325] 1 - 2 ea PO Q6H PRN #10 tablet PRN Reason: Pain Comments: Call your doctor to arrange a follow-up appointment, make the next available appointment. In the interim, return anytime if worse or if new symptoms develop. Your blood pressure was elevated today on check into the emergency department. This does not mean that you have hypertension, it is a common phenomenon to come to the emergency department and have elevated blood pressure. I recommend that you see your primary care physician within the week to have it rechecked when you are feeling better. Do not drink or drive while taking narcotic pain medication. Note that many narcotic pain relievers also contain Tylenol/acetaminophen. Please ensure that your total dose of acetaminophen from all sources does not exceed 3 g (3000 mg) per day. You may get constipated while on this medication. Take a stool softener such as Colace twice a day while you are on it. Also add an ilsl-srj-zggkisk laxative such as senna or MiraLAX on any day that you do not have a bowel movement. If you received a narcotic pain medication or sedative while in the emergency department, do not drive for the next 24 hours.
--- NOTE | 2017-07-28 16:29 | XRAY Preliminary Report ---
Exam: XR LUMBAR SPINE 2 VIEW IMPRESSION: 1. No acute bony abnormality. 2. Marked degenerative disk disease L5-S1. 3. Mild degenerative changes both sacroiliac joints. [facility] SITE ID: [id number]
--- NOTE | 2017-07-28 16:32 | XRAY Preliminary Report ---
Exam: XR KNEE 4 VIEW LT IMPRESSION: 1. Minimal degenerative changes medial joint compartment, grade one by Kellgren Lew classificati on. 2. Small knee effusion. 3. No acute bony abnormality. [facility] SITE ID: [id number]
--- NOTE | 2017-07-28 16:36 | XRAY Report ---
EXAM: LUMBOSACRAL SPINE RADIOGRAPHY EXAM DATE: 07/28/2017 03:57 PM. CLINICAL HISTORY: Back pain after a fall today. COMPARISONS: CT abdomen and pelvis 01/25/2017. TECHNIQUE: 3 views. FINDINGS: Alignment: Stable 4 mm degenerative anterior subluxation L5 on S1. Bones: Five cmh-sct-gpbthal lumbar vertebral bodies are present. No fractures or bone lesions. Disks: Stable marked narrowing of the L5-S1 disk with extensive subcortical sclerosis and large osteo phytes. Facets: Marked degenerative changes at the L5-S1 facets bilaterally. Sacroiliac Joints: Mild degenerative changes both sacroiliac joints. Normal hip joints. Soft Tissues: Cholecystectomy. Surgical clip left lower quadrant of the abdomen. IMPRESSION: 1. No acute bony abnormality. 2. Marked degenerative disk disease L5-S1. 3. Mild degenerative changes both sacroiliac joints. [facility] Referring Provider Line: [phone] SITE ID: [id number]
--- NOTE | 2017-07-28 16:36 | XRAY Report ---
EXAM: LEFT KNEE RADIOGRAPHY EXAM DATE: 07/28/2017 03:57 PM. CLINICAL HISTORY: Pain after fall on ice today. COMPARISON: None. TECHNIQUE: 4 views. FINDINGS: Bones: Normal. No fractures or bone lesions. Joints: Slight narrowing of the medial joint compartment without bony reactive changes. Small knee ef fusion. Soft Tissues: 4 mm dystrophic calcification subcutaneous fat anterior soft tissues of the knee. IMPRESSION: 1. Minimal degenerative changes medial joint compartment, grade 1 by Kellgren Lew classification . 2. Small knee effusion. 3. No acute bony abnormality. [facility] Referring Provider Line: [phone] SITE ID: [id number]
[2017-07-28 17:01] VITALS: BP 127/70
== END 2017-07-28 17:01 | disposition home or self-care (01) ==
LOC: ED 14:49
DX: S20.222A Contusion of left back wall of thorax, initial encounter (principal); S83.92XA Sprain of unspecified site of left knee, initial encounter; W00.0XXA Fall on same level due to ice and snow, initial encounter; X50.9XXA Other and unspecified overexertion or strenuous movements or postures, initial encounter; Y99.0 Civilian activity done for income or pay; E03.9 Hypothyroidism, unspecified; R03.0 Elevated blood-pressure reading, without diagnosis of hypertension
CPT/HCPCS: 72100; 73564; 99283; A9270

== ENCOUNTER 2017-08-05 16:40 | Outpatient (CLI) | payer OTHER, MEDICAID ==
--- NOTE | 2017-08-06 15:47 | MRI Report ---
EXAM: MRI CERVICAL SPINE WITHOUT CONTRAST EXAM DATE: 08/05/2017 05:29 PM. CLINICAL HISTORY: Chronic neck pain and spasm. COMPARISONS: Cervical spine radiograph 07/27/2017. TECHNIQUE: Multiplanar, multisequence T1-weighted and fluid-sensitive sequences of the cervical spine without contrast. Other: None. FINDINGS: There is some artifact on the study. No abnormal signal is seen in the cervical spinal cord. No focal area of suspicious marrow replacement is present. Grade 1 retrolisthesis of C4 relative to C5 is noted. Loss of disk space height is seen from C4 throu gh C7. Anterior disk protrusion osteophyte formation are seen most evident at C4-C5 and C5-C6. Diskogenic marrow edema is seen at C4-C5. C2-C3: No posterior disk protrusion. C3-C4: A minimal posterior disk protrusion is seen. C4-C5: A mild to moderate posterior disk protrusion is seen. Disk/osteophyte complex formation is see n involving the posterolateral and foraminal margin of the disk. Bilateral uncovertebral joint spurri ng is seen. Bilateral foraminal stenosis is present. C5-C6: A mild posterior disk protrusion is seen. Disk/osteophyte complex formation is seen involving the posterolateral and foraminal margin of the disk. Bilateral uncovertebral joint spurring is seen. Bilateral foraminal stenosis is greater on the right relative to the left. C6-C7: A mild posterior disk protrusion is seen. Disk/osteophyte complex formation is seen involving the posterolateral and foraminal margin of the disk. Bilateral uncovertebral joint spurring is seen. Mild bilateral foraminal stenosis is seen. C7-T1: No posterior disk protrusion. IMPRESSION: 1. Degenerative disk disease, osteophyte formation, and uncovertebral joint spurring are present at m ultiple levels. 2. Central canal is borderline at C4-C5. No central canal stenosis is present. 3. Multilevel foraminal stenosis is present. This is most evident bilaterally at C4-C5 and on the rig ht at C5-C6. 4. Grade 1 retrolisthesis of C4 relative to C5 is present. There is some diskogenic marrow edema at C 4-C5. [facility] Referring Provider Line: [phone] SITE ID: [id number]
== END 2017-08-05 16:41 | disposition home or self-care (01) ==
LOC: DI 16:40
PROVIDERS: ATTEND Orthopaedic Surgery
DX: M50.21 Other cervical disc displacement, high cervical region (principal); M50.31 Other cervical disc degeneration, high cervical region; M47.892 Other spondylosis, cervical region; M43.12 Spondylolisthesis, cervical region
CPT/HCPCS: 72141

== ENCOUNTER 2017-08-23 11:31 | Outpatient (CLI) | payer OTHER, MEDICAID | END 2017-08-23 11:32 | disposition home or self-care (01) | LOC: SC 11:31 | PROVIDERS: ATTEND Internal Medicine Pulmonary Disease | DX: G47.33 Obstructive sleep apnea (adult) (pediatric) (principal) | CPT/HCPCS: 99203; 99212 ==

== ENCOUNTER 2017-09-02 15:56 | Emergency (ER) | payer OTHER, MEDICAID ==
[2017-09-02 16:28] LABS: BASOPHILS # (AUTO) 0.1 10^3/uL (0.0-0.1); BASOPHILS % (AUTO) 1.7 %; EOSINOPHILS % (AUTO) 0.3 %; HGB - HEMOGLOBIN 13.1 g/dL (12.0-16.0); LYMPHOCYTES # (AUTO) 2.6 10^3/uL (1.5-3.5); MEAN CORPUSCULAR HEMOGLOBIN 30.9 pg (27.0-31.0); MEAN CORPUSCULAR HGB CONC 33.7 g/dL (32.0-36.0); MEAN CORPUSCULAR VOLUME 91.7 fL (81.0-99.0); MEAN PLATELET VOLUME 8.6 fL (7.9-10.8); MONOCYTES # (AUTO) 0.5 10^3/uL (0.0-1.0); MONOCYTES % (AUTO) 5.6 %; NEUTROPHILS # (AUTO) 4.7 10^3/uL (1.5-6.6); NEUTROPHILS % (AUTO) 59.4 %; PLT - PLATELET COUNT 246 10^3/uL (130-450); RED BLOOD COUNT 4.24 10^6/uL (4.20-5.40); RED CELL DISTRIBUTION WIDTH 12.5 % (12.0-15.0)
[2017-09-02 16:41] LABS: ALBUMIN 4.4 g/dL (3.2-5.5); ALBUMIN/GLOBULIN RATIO 1.3 (1.0-2.2); BILIRUBIN,TOTAL 0.5 mg/dL (0.2-1.0); CALCIUM 9.3 mg/dL (8.5-10.3); CREATININE 0.5 mg/dL (0.4-1.0); TOTAL PROTEIN 7.8 g/dL (6.7-8.2)
[2017-09-02 17:03] LABS: BILIRUBIN,URINE NEGATIVE (NEGATIVE); GLUCOSE, URINE (UA) NEGATIVE (NEGATIVE); KETONES,URINE (UA) NEGATIVE (NEGATIVE); LEUKOCYTE ESTERASE, URINE NEGATIVE (NEGATIVE); NITRITE,URINE NEGATIVE (NEGATIVE); OCCULT BLOOD,URINE NEGATIVE (NEGATIVE); PROTEIN,URINE NEGATIVE (NEGATIVE); UROBILINOGEN,URINE 0.2 (NORMAL) E.U./dL (NORMAL)
[2017-09-02] MEDS ORDERED: HYDROmorphone 1 MG/ML CARPUJECT IM STA (17:06)
[2017-09-02] MEDS ORDERED: ONDANSETRON 4 MG/2 ML VIAL IM STA (17:06)
[2017-09-02] MEDS ORDERED: KETOROLAC 60 MG/2 ML VIAL IM STA (17:06)
[2017-09-02 17:10] LABS: CLARITY,URINE CLEAR (CLEAR); HCG UR QUAL NEGATIVE
--- NOTE | 2017-09-02 17:12 | ED Physician Documentation ---
PD HPI ABD PAIN - Stated complaint Stated Complaint: R FLANK PAIN/NAUSEA - Chief complaint Chief Complaint: Abd Pain - History obtained from History obtained from: Patient - History of Present Illness Timing - onset: Other (2 days of constant, nonradiating, increasingly severe right flank pain that is worse with sitting up. She is vomited once and denies any urinary complaints. Note made that she has chronic unexplained abdominal pain which is different, but she had a CT about 5 months ago showing nonobstructing renal lithiasis.) Review of Systems Constitutional: denies: Fever, Chills GI: reports: Nausea, Vomiting. denies: Abdominal Pain, Constipation, Diarrhea, Hematemesis, Bloody / black stool : denies: Dysuria, Frequency, Hematuria PD PAST MEDICAL HISTORY - Past Medical History Endocrine/Autoimmune: HyPOthyroidism GI: GERD Psych: Depression, Anxiety Musculoskeletal: Chronic back pain, Other - Past Surgical History Past Surgical History: Yes General: Cholecystectomy 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, Rotator cuff repair /[employer]: Tubal ligation, 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 - Present Medications Home Medications: Ambulatory Orders Medication Instructions Recorded Confirmed Estradiol 1.5 mg PO DAILY 11/17/16 07/28/17 Escitalopram Oxalate [Lexapro] 20 mg PO DAILY 07/28/17 07/28/17 HYDROcod/ACETAM 5/325 [[place] 5/325] 1 - 2 ea PO Q6H PRN #10 tablet 07/28/17 Cyclobenzaprine [Flexeril] 10 mg PO TID PRN #20 tablet 09/02/17 HYDROcod/ACETAM 5/325 [[place] 5/325] 1 - 2 ea PO Q6H PRN #15 tablet 09/02/17 - Allergies Allergies/Adverse Reactions: Allergies Allergy/AdvReac Type Severity Reaction Status Date / Time No Known Drug Allergies Allergy Verified 09/02/17 16:04 - Social History Does the pt smoke?: No Smoking Status: Never smoker Does the pt drink ETOH?: No Does the pt have substance abuse?: No - Immunizations Immunizations are current?: Yes - POLST Patient has POLST: No PD ED PE NORMAL - Vitals Vital signs reviewed: Yes - General General: Alert and oriented X 3, No acute distress - Cardiac Cardiac: RRR, No murmur - Respiratory Respiratory: No respiratory distress, Clear bilaterally - Abdomen Abdomen: Normal bowel sounds, Soft, Non tender - Back Back: Other (She is quite tender over the right side of the back that seems more consistent with muscular tenderness, especially given the fact that she winces when sitting up but is comfortable when not moving. There is no rash.) - 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, Normal speech - Psych Psych: Normal mood, Normal affect Results - Vitals Vitals: Vital Signs - 24 hr 09/02/17 16:02 Temperature 36.8 C Heart Rate 91 Respiratory 18 Rate Blood Pressure 124/108 H O2 Saturation 99 Oxygen O2 Source Room air - Labs Labs: Laboratory Tests 09/02/17 09/02/17 09/02/17 16:15 16:21 16:21 WBC 8.0 RBC 4.24 Hgb 13.1 Hct 38.9 MCV 91.7 MCH 30.9 MCHC 33.7 RDW 12.5 Plt Count 246 MPV 8.6 Neut # 4.7 Lymph # 2.6 [place] # 0.5 Eos # 0.0 Baso # 0.1 Absolute Nucleated RBC 0.00 Nucleated RBC % 0.0 Sodium 137 Potassium 3.7 Chloride 102 Carbon Dioxide 27 Anion Gap 8.0 BUN 22 H Creatinine 0.5 Estimated GFR (MDRD) 135 Glucose 97 Calcium 9.3 Total Bilirubin 0.5 AST 28 ALT 33 Alkaline Phosphatase 60 Total Protein 7.8 Albumin 4.4 Globulin 3.4 Albumin/Globulin Ratio 1.3 Lipase 31 Urine Color YELLOW Urine Clarity CLEAR Urine pH 7.0 Ur Specific [place] 1.020 Urine Protein NEGATIVE Urine Glucose (UA) NEGATIVE Urine Ketones NEGATIVE Urine Occult Blood NEGATIVE Urine Nitrite NEGATIVE Urine Bilirubin NEGATIVE Urine Urobilinogen 0.2 (NORMAL) Ur Leukocyte Esterase NEGATIVE Ur Microscopic Review NOT INDICATED Urine Culture Comments NOT INDICATED Urine HCG, Qual NEGATIVE PD MEDICAL DECISION MAKING - ED course ED course: By exam this actually seems muscular. Could be renal colic, she does have known old stones on CT in the kidney, less likely with reproducible pain and lack of hematuria. Departure - Departure Disposition: 01 Home, Self Care Clinical Impression: Back pain Qualifiers: Back pain location: low back pain Chronicity: acute Back pain laterality: right Sciatica presence: without sciatica Qualified Code(s): M54.5 - Low back pain Condition: Good Record reviewed to determine appropriate education?: Yes Instructions: ED Acute Pain [facility] Prescriptions: Cyclobenzaprine [Flexeril] 10 mg PO TID PRN #20 tablet PRN Reason: Pain HYDROcod/ACETAM 5/325 [[place] 5/325] 1 - 2 ea PO Q6H PRN #15 tablet PRN Reason: Pain Comments: Call your doctor to arrange a follow-up appointment, make the next available appointment. In the interim, return anytime if worse or if new symptoms develop. Do not drink or drive while taking narcotic pain medication. Note that many narcotic pain relievers also contain Tylenol/acetaminophen. Please ensure that your total dose of acetaminophen from all sources does not exceed 3 g (3000 mg) per day. You may get constipated while on this medication. Take a stool softener such as Colace twice a day while you are on it. Also add an uyul-[id number] laxative such as senna or MiraLAX on any day that you do not have a bowel movement. If you received a narcotic pain medication or sedative while in the emergency department, do not drive for the next 24 hours. Your blood pressure was elevated today on check into the emergency department. This does not mean that you have hypertension, it is a common phenomenon to come to the emergency department and have elevated blood pressure. I recommend that you see your primary care physician within the week to have it rechecked when you are feeling better.
[2017-09-02 18:48] VITALS: BP 128/81
== END 2017-09-02 18:05 | disposition home or self-care (01) ==
LOC: ED 15:56
DX: M54.5 Low back pain (principal); R03.0 Elevated blood-pressure reading, without diagnosis of hypertension; E03.9 Hypothyroidism, unspecified
CPT/HCPCS: 36415; 80053; 81003; 81025; 83690; 85025; 96372; 99283; J1170; 81001; 87086

== ENCOUNTER 2017-11-24 15:29 | Emergency (ER) | payer OTHER, MEDICAID ==
[2017-11-24 15:58] LABS: BASOPHILS # (AUTO) 0.1 10^3/uL (0.0-0.1); BASOPHILS % (AUTO) 0.6 %; HGB - HEMOGLOBIN 13.5 g/dL (12.0-16.0); LYMPHOCYTES # (AUTO) 1.8 10^3/uL (1.5-3.5); LYMPHOCYTES % (AUTO) 18.2 %; MEAN CORPUSCULAR HGB CONC 33.3 g/dL (32.0-36.0); MEAN PLATELET VOLUME 8.6 fL (7.9-10.8); MONOCYTES # (AUTO) 0.5 10^3/uL (0.0-1.0); MONOCYTES % (AUTO) 5.4 %; NEUTROPHILS # (AUTO) 7.4 10^3/uL (1.5-6.6); NEUTROPHILS % (AUTO) 75.8 %; PLT - PLATELET COUNT 250 10^3/uL (130-450); RED BLOOD COUNT 4.21 10^6/uL (4.20-5.40); RED CELL DISTRIBUTION WIDTH 13.6 % (12.0-15.0); WHITE BLOOD COUNT 9.8 x10^3/uL (4.8-10.8)
--- NOTE | 2017-11-24 16:06 | ED Physician Documentation ---
PD HPI DYSPNEA - Stated complaint Stated Complaint: SOA/POST SURG - Chief complaint Chief Complaint: Resp - History obtained from History obtained from: Patient - History of Present Illness Timing - onset: Today Timing - onset during: Light activity Timing - duration: Days (1) Timing - details: Gradual onset, Still present Inciting event(s): No: URI Worsened by: Laying flat Associated symptoms: Anxiety, Other (feeling of dyspnea and feeling throat has swelling focally). No: Fever, Cough, Wheezing, Chest pain / discomfort Similar symptoms before: Has not had sx before Recently seen: Surgery (2 days ago had cervical spine surgery by anterior approach. Discharged yesterday and was doing okay. This morning, awakened with feeling of throat swelling focally and dyspnea. No fever, no near syncope. No lip/tongue edema, no hives.) Review of Systems Constitutional: denies: Fever, Chills Eyes: denies: Loss of vision, Decreased vision Nose: denies: Rhinorrhea / runny nose, Congestion Throat: reports: Sore throat. denies: Oral lesions / sores Cardiac: denies: Chest pain / pressure, Palpitations Respiratory: reports: Dyspnea. denies: Cough, Wheezing GI: reports: Nausea. denies: Abdominal Pain, Vomiting, Diarrhea Skin: denies: Rash, Lesions Musculoskeletal: reports: Neck pain. denies: Back pain Neurologic: reports: Generalized weakness. denies: Focal weakness, Numbness, Near syncope PD PAST MEDICAL HISTORY - Past Medical History Cardiovascular: None Respiratory: None Neuro: None Endocrine/Autoimmune: HyPOthyroidism GI: GERD Psych: Depression, Anxiety Musculoskeletal: Chronic back pain, Other (cervical surgery 2 days ago) - Past Surgical History Past Surgical History: Yes General: Cholecystectomy 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, Rotator cuff repair /[employer]ECT: Tubal ligation, 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 - Present Medications Home Medications: Ambulatory Orders Medication Instructions Recorded Confirmed Estradiol 1.5 mg PO DAILY 11/17/16 07/28/17 Escitalopram Oxalate [Lexapro] 20 mg PO DAILY 07/28/17 07/28/17 HYDROcod/ACETAM 5/325 [[place] 5/325] 1 - 2 ea PO Q6H PRN #10 tablet 07/28/17 Cyclobenzaprine [Flexeril] 10 mg PO TID PRN #20 tablet 09/02/17 HYDROcod/ACETAM 5/325 [[place] 5/325] 1 - 2 ea PO Q6H PRN #15 tablet 09/02/17 Dexamethasone [Decadron] 4 mg PO DAILY #5 tablet 11/24/17 Diazepam [Valium] 2 mg PO 11/24/17 - Allergies Allergies/Adverse Reactions: Allergies Allergy/AdvReac Type Severity Reaction Status Date / Time No Known Drug Allergies Allergy Verified 11/24/17 15:37 - Social History Does the pt smoke?: No Smoking Status: Never smoker Does the pt drink ETOH?: No Does the pt have substance abuse?: No - Family History Family history: reports: Non contributory. denies: Venous thromboembolism - Immunizations Immunizations are current?: Yes - POLST Patient has POLST: No PD ED PE NORMAL - Vitals Vital signs reviewed: Yes - General General: Alert and oriented X 3, Well developed/nourished, Other (able to speak without stridor. No work of breathing but some tachypnea. No JVD. ) - Neck Neck: Supple, no meningeal sign, No adenopathy, No JVD, Other (surgical bandage anteriorly without palpable edema.) - Cardiac Cardiac: RRR, No murmur - Respiratory Respiratory: Clear bilaterally - Abdomen Abdomen: Soft, Non tender - Derm Derm: Normal color, Warm and dry - Extremities Extremities: No deformity, No tenderness to palpate, Normal ROM s pain - 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, No motor deficit, No sensory deficit, Normal speech (slightly squeaky, but no hoarseness. ) Results - Vitals Vitals: Vital Signs - 24 hr 11/24/17 11/24/17 11/24/17 15:35 16:39 17:24 Temperature 36.5 C Heart Rate 66 89 76 Respiratory 20 24 25 H Rate Blood Pressure 142/95 H 145/89 H O2 Saturation 100 98 11/24/17 11/24/17 11/24/17 19:17 20:03 20:54 Temperature 36.9 C Heart Rate 66 67 74 Respiratory 23 22 16 Rate Blood Pressure 126/77 137/77 H O2 Saturation 98 92 95 Oxygen O2 Source Room air - Labs Labs: Laboratory Tests 11/24/17 11/24/17 11/24/17 15:48 15:48 15:48 WBC 9.8 RBC 4.21 Hgb 13.5 Hct 40.4 MCV 96.0 MCH 32.0 H MCHC 33.3 RDW 13.6 Plt Count 250 MPV 8.6 Neut # (Auto) 7.4 H Lymph # (Auto) 1.8 [place] # (Auto) 0.5 Eos # (Auto) 0.0 Baso # (Auto) 0.1 Absolute Nucleated RBC 0.00 Nucleated RBC % 0.0 Sodium 138 Potassium 3.6 Chloride 101 Carbon Dioxide 25 Anion Gap 12.0 BUN 14 Creatinine 0.7 Estimated GFR (MDRD) 91 Glucose 112 H Calcium 9.8 Total Bilirubin 0.5 AST 22 ALT 23 Alkaline Phosphatase 47 Troponin I < 0.04 B-Natriuretic Peptide Total Protein 7.7 Albumin 4.5 Globulin 3.2 Albumin/Globulin Ratio 1.4 Lipase 17 L 11/24/17 15:48 WBC RBC Hgb Hct MCV MCH MCHC RDW Plt Count MPV Neut # (Auto) Lymph # (Auto) [place] # (Auto) Eos # (Auto) Baso # (Auto) Absolute Nucleated RBC Nucleated RBC % Sodium Potassium Chloride Carbon Dioxide Anion Gap BUN Creatinine Estimated GFR (MDRD) Glucose Calcium Total Bilirubin AST ALT Alkaline Phosphatase Troponin I B-Natriuretic Peptide 97 Total Protein Albumin Globulin Albumin/Globulin Ratio Lipase - Rads (name of study) chest xray Radiology: Prelim report reviewed, EMP read contemporaneously (no acute process) soft tissue neck Radiology: Prelim report reviewed (minimal swelling around surgical site, expected finding. No significant/focal edema/fluid. ) PD MEDICAL DECISION MAKING - ED course Complexity details: reviewed results, re-evaluated patient (sats good, resp unlabored though slightly fast. Able to talk and swallow. She is nervous about going home with symptoms, but I assured her there was not any findings to suggest that her airway will actually close off and that the salon professional surgeon said these sympotms are very common. ), considered differential, d/w patient, d/ w senior application security consultant (senior sql database developer Neurosurgery for Dr. Mayen - reviewed symptoms and findings, including CT. He is content that we did CT (he would have requested one) to ensure no hematoma/significant edema. He suggested Decadron here and short course orally. He said feeling of dyspnea and trouble swallowing are common and improved over few days. ) - Sepsis Event Vital Signs: Vital Signs - 24 hr 11/24/17 11/24/17 11/24/17 15:35 16:39 17:24 Temperature 36.5 C Heart Rate 66 89 76 Respiratory 20 24 25 H Rate Blood Pressure 142/95 H 145/89 H O2 Saturation 100 98 11/24/17 11/24/17 11/24/17 19:17 20:03 20:54 Temperature 36.9 C Heart Rate 66 67 74 Respiratory 23 22 16 Rate Blood Pressure 126/77 137/77 H O2 Saturation 98 92 95 Oxygen O2 Source Room air Departure - Departure Disposition: 01 Home, Self Care Clinical Impression: Post-op pain Dyspnea Qualifiers: Dyspnea type: shortness of breath Qualified Code(s): R06.02 - Shortness of breath Condition: Stable Record reviewed to determine appropriate education?: Yes Follow-Up: Mel Nieves DO [Primary Care Provider] - Prescriptions: Dexamethasone [Decadron] 4 mg PO DAILY #5 tablet Comments: Frequent fluids for good hydration. The on-call surgeon suggested continuing some steroids daily for the next several days to help reduce inflammation. The CT scan did not show any significant inflammation that would put you at risk for actually closed off airway. The on-call surgeon said it is very common to have the feeling of difficulty swallowing and breathing for the first several days. Called the surgeon's office tomorrow to update on how you are doing. Continue other usual medicines. Sleep reclined rather than flat will help. I do not believe you have to have the collar on in that may actually be given you distorted ability to swallow C could have the collar off when resting later too and that may help as well. Discharge Date/Time: 11/24/17 21:00
[2017-11-24 16:07] LABS: ALBUMIN 4.5 g/dL (3.2-5.5); ALBUMIN/GLOBULIN RATIO 1.4 (1.0-2.2); BILIRUBIN,TOTAL 0.5 mg/dL (0.2-1.0); CALCIUM 9.8 mg/dL (8.5-10.3); CREATININE 0.7 mg/dL (0.4-1.0); TOTAL PROTEIN 7.7 g/dL (6.7-8.2)
[2017-11-24] MEDS ORDERED: LORazepam 2 MG/ML VIAL IVP STA (16:22)
[2017-11-24] MEDS ORDERED: DEXAMETHASONE 10 MG/ML VIAL IVP STA (16:22)
[2017-11-24] MEDS ORDERED: MORPHINE 10 MG/ML VIAL IVP STA ×2 (16:22→19:25)
[2017-11-24] MEDS ORDERED: ALBUTEROL NEB 2.5 MG/3 ML INH STA (16:22)
--- NOTE | 2017-11-24 16:52 | XRAY Report ---
Procedure Date: 11/24/2017 Accession Number: [id number] / [id number] Procedure: XR - Chest 2 View X-Ray CPT Code: 90968 FULL RESULT: EXAM: CHEST RADIOGRAPHY EXAM DATE: 11/24/2017 04:24 PM. CLINICAL HISTORY: SOA. COMPARISON: 11/04/16. TECHNIQUE: 2 views. FINDINGS: Lungs/Pleura: No dense consolidation. No large effusion or pneumothorax. No pulmonary edema. Mediastinum: Heart and mediastinal contours are unremarkable. Other: Cervical spinal fusion partially visualized. IMPRESSION: No acute radiographic pulmonary abnormalities. RADIA
[2017-11-24] MEDS ORDERED: IOPAMIDOL-300 100 ML VIAL ONE (17:49)
[2017-11-24] MEDS ORDERED: IOPAMIDOL-300 100 ML VIAL IVP ONE (18:08)
--- NOTE | 2017-11-24 19:14 | CT Report ---
Procedure Date: 11/24/2017 Accession Number: [id number] / [id number] Procedure: CT - Neck Soft Tissue W/ CPT Code: FULL RESULT: EXAM: CT NECK WITH CONTRAST COMPARISON: MRI cervical spine, 08/05/2017. CLINICAL HISTORY: Neck surgery Tuesday; now feeling throat swelling. TECHNIQUE: Axial images were acquired through the neck after intravenous administration of iodinated contrast 80 mL Isovue-300. Coronal and sagittal reconstructions are created from source data. In accordance with CT protocol optimization, one or more of the following dose reduction techniques were utilized for this exam: automated exposure control, adjustment of mA and/or KV based on patient size, or use of iterative reconstructive technique. FINDINGS: There has been interval anterior cervical disk fusion extending from C4 through C7-T1. The visualized right upper chest shows no pulmonary nodules or masses. No pneumothorax. Visualized left upper chest shows no pulmonary nodules or masses. No pneumothorax. Visualized pulmonary arteries are unremarkable. Visualized upper mediastinum is unremarkable. No evident hardware failure. Alignment is near-anatomic. The thyroid is prominent and somewhat nodular-appearing, without a discrete dominant nodule. There appears to have been a right-sided anterior approach. There is expected postsurgical change in the soft tissue. There is a small amount of retropharyngeal/prevertebral fluid, expected. No discrete mass effect on the airway. No evident abnormality of the arterial or venous structures is seen. IMPRESSION: There are expected postoperative findings after C4 through C7-T1 ACDF. No large fluid collection or mass effect on the airway is identified. There is a small amount of fluid in the retropharyngeal/prevertebral space, expected postoperatively. There are findings concordant with subluxation/dislocation of the right arytenoid cartilage. Clinical correlation and ENT follow-up suggested.
[2017-11-24 21:06] VITALS: BP 137/77
== END 2017-11-24 21:00 | disposition home or self-care (01) ==
LOC: ED 15:29
DX: G89.18 Other acute postprocedural pain (principal); E03.9 Hypothyroidism, unspecified
CPT/HCPCS: 36415; 70491; 71046; 80053; 83690; 83880; 84484; 85025; 93005; 94640; 96374; 96375; 96376; 99283; 99284; J2060; Q9967

== ENCOUNTER 2017-11-29 17:21 | Outpatient (CLI) | payer OTHER, MEDICAID | END 2017-11-29 17:22 | disposition critical access hospital (66) | LOC: EMS 17:21 | PROVIDERS: ATTEND Surgery | DX: R06.00 Dyspnea, unspecified (principal) | CPT/HCPCS: A0425; A0429 ==

== ENCOUNTER 2017-11-29 17:33 | Emergency (ER) | payer OTHER, MEDICAID ==
--- NOTE | 2017-11-29 17:48 | ED Physician Documentation ---
PD HPI DYSPNEA - Stated complaint Stated Complaint: SOA - Chief complaint Chief Complaint: Resp - History obtained from History obtained from: Patient - History of Present Illness Timing - onset during: Light activity (she has been having pain at neck not improved with current pain meds and feeling of trouble swallowing still. Has f/ u appt with surgeon next week. No fevers, no wound infection, no edema/leg pains. Mild cough.) Timing - duration: Days Timing - details: Gradual onset, Waxing and waning (felt worse dyspnea and feeling of throat swelling today again, similar to last week on post op day 2.) Inciting event(s): No: Out of meds Improved by: Sitting up Worsened by: Exertion, Laying flat, Coughing Associated symptoms: Cough. No: Fever, Hemoptysis, Wheezing, Chest pain / discomfort, Bilateral edema Similar symptoms before: Diagnosis (post op discomfort swelling without hematoma nor focal edema.) Recently seen: Emergency Dept (on post op day 2 with similar symptoms), Surgery (see prior chart, had cervical surgery anterior approach recently.) Review of Systems Constitutional: reports: Myalgias, Fatigue. denies: Fever Nose: denies: Rhinorrhea / runny nose, Congestion Throat: reports: Sore throat. denies: Swollen tonsils Cardiac: denies: Chest pain / pressure, Palpitations Respiratory: reports: Dyspnea, Cough. denies: Wheezing GI: reports: Nausea. denies: Abdominal Pain, Vomiting, Diarrhea : denies: Dysuria, Frequency Skin: denies: Rash, Lesions Neurologic: denies: Focal weakness, Numbness PD PAST MEDICAL HISTORY - Past Medical History Past Medical History: Yes Cardiovascular: None Respiratory: None Neuro: None Endocrine/Autoimmune: HyPOthyroidism GI: GERD Psych: Depression, Anxiety Musculoskeletal: Chronic back pain, Other - Past Surgical History Past Surgical History: Yes General: Cholecystectomy 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, Rotator cuff repair, Other /PHARM SPEC: Tubal ligation, 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 - Present Medications Home Medications: Ambulatory Orders Medication Instructions Recorded Confirmed Estradiol 1.5 mg PO DAILY 11/17/16 07/28/17 Escitalopram Oxalate [Lexapro] 20 mg PO DAILY 07/28/17 07/28/17 HYDROcod/ACETAM 5/325 [[place] 5/325] 1 - 2 ea PO Q6H PRN #10 tablet 07/28/17 Cyclobenzaprine [Flexeril] 10 mg PO TID PRN #20 tablet 09/02/17 HYDROcod/ACETAM 5/325 [[place] 5/325] 1 - 2 ea PO Q6H PRN #15 tablet 09/02/17 Dexamethasone [Decadron] 4 mg PO DAILY #5 tablet 11/24/17 Diazepam [Valium] 2 mg PO 11/24/17 Dexamethasone [Decadron] 4 mg PO DAILY #5 tablet 11/29/17 Diazepam [Valium] 2 mg PO TID PRN #15 tablet 11/29/17 Oxycodone HCl/Acetaminophen 1 each PO Q6H PRN #20 tablet 11/29/17 [Percocet 5-325 mg Tablet] - Allergies Allergies/Adverse Reactions: Allergies Allergy/AdvReac Type Severity Reaction Status Date / Time No Known Drug Allergies Allergy Verified 11/24/17 15:37 - Social History Does the pt smoke?: No Smoking Status: Never smoker Does the pt drink ETOH?: No Does the pt have substance abuse?: No - Immunizations Immunizations are current?: Yes - POLST Patient has POLST: No PD ED PE NORMAL - Vitals Vital signs reviewed: Yes - General General: Alert and oriented X 3, Well developed/nourished - HEENT HEENT: Moist mucous membranes, Pharynx benign - Neck Neck: Supple, no meningeal sign, No adenopathy - Cardiac Cardiac: RRR, No murmur - Respiratory Respiratory: Clear bilaterally - Abdomen Abdomen: Normal bowel sounds, Soft, Non tender, Non distended - Back Back: No CVA TTP - Derm Derm: Normal color. No: Warm and dry (slightly moist/diaphoretic) - Extremities Extremities: No tenderness to palpate, Normal ROM s pain, No edema, No calf tenderness / cord - 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, No motor deficit. No: Normal speech (soft voice but not hoarse. ) Results - Vitals Vitals: Vital Signs - 24 hr 11/29/17 11/29/17 11/29/17 17:34 18:06 19:42 Temperature 36.8 C Heart Rate 94 94 100 Respiratory 20 18 22 Rate Blood Pressure 140/90 H 130/85 H O2 Saturation 100 91 L 11/29/17 20:13 Temperature Heart Rate 94 Respiratory 15 Rate Blood Pressure 124/75 O2 Saturation 96 Oxygen O2 Source Room air - EKG (time done) 18:26 Rate: Rate (enter#) (91) Rhythm: NSR [place]: Normal Intervals: Normal AR QRS: Normal Ischemia: Normal ST segments. No: ST elevation c/w ischemia, ST depression - Labs Labs: Laboratory Tests 11/29/17 11/29/17 11/29/17 18:20 18:24 18:24 WBC 9.4 RBC 4.30 Hgb 13.8 Hct 41.4 MCV 96.4 MCH 32.1 H MCHC 33.3 RDW 13.7 Plt Count 227 MPV 8.9 Neut # (Auto) 8.6 H Lymph # (Auto) 0.6 L [place] # (Auto) 0.1 Eos # (Auto) 0.0 Baso # (Auto) 0.0 Absolute Nucleated RBC 0.00 Nucleated RBC % 0.0 Sodium 136 Potassium 4.1 Chloride 102 Carbon Dioxide 24 Anion Gap 10.0 BUN 25 H Creatinine 0.8 Estimated GFR (MDRD) 78 L Glucose 165 H Lactic Acid Calcium 9.2 Magnesium 1.8 Total Bilirubin 0.5 AST 34 ALT 36 Alkaline Phosphatase 71 Total Protein 7.3 Albumin 3.8 Globulin 3.5 Albumin/Globulin Ratio 1.1 Lipase 37 Urine Color YELLOW Urine Clarity CLEAR Urine pH 5.5 Ur Specific [place] 1.015 Urine Protein NEGATIVE Urine Glucose (UA) NEGATIVE Urine Ketones NEGATIVE Urine Occult Blood TRACE-LYSE Urine Nitrite NEGATIVE Urine Bilirubin NEGATIVE Urine Urobilinogen 0.2 (NORMAL) Ur Leukocyte Esterase NEGATIVE Ur Microscopic Review NOT INDICATED Urine Culture Comments NOT INDICATED 11/29/17 18:24 WBC RBC Hgb Hct MCV MCH MCHC RDW Plt Count MPV Neut # (Auto) Lymph # (Auto) [place] # (Auto) Eos # (Auto) Baso # (Auto) Absolute Nucleated RBC Nucleated RBC % Sodium Potassium Chloride Carbon Dioxide Anion Gap BUN Creatinine Estimated GFR (MDRD) Glucose Lactic Acid 2.0 Calcium Magnesium Total Bilirubin AST ALT Alkaline Phosphatase Total Protein Albumin Globulin Albumin/Globulin Ratio Lipase Urine Color Urine Clarity Urine pH Ur Specific [place] Urine Protein Urine Glucose (UA) Urine Ketones Urine Occult Blood Urine Nitrite Urine Bilirubin Urine Urobilinogen Ur Leukocyte Esterase Ur Microscopic Review Urine Culture Comments - Rads (name of study) chest xray Radiology: Prelim report reviewed (no infiltrates. Low inspiration), EMP read contemporaneously PD MEDICAL DECISION MAKING - ED course Complexity details: reviewed results (having feeling of trouble swallowing, but vitals good, sats good, CXR clear. I did not feel indication to repeat CT of neck given good appearance of it on prior visit. ), considered differential, d/ w patient - Sepsis Event Vital Signs: Vital Signs - 24 hr 11/29/17 11/29/17 11/29/17 17:34 18:06 19:42 Temperature 36.8 C Heart Rate 94 94 100 Respiratory 20 18 22 Rate Blood Pressure 140/90 H 130/85 H O2 Saturation 100 91 L 11/29/17 20:13 Temperature Heart Rate 94 Respiratory 15 Rate Blood Pressure 124/75 O2 Saturation 96 Oxygen O2 Source Room air Departure - Departure Disposition: Home, Self Care Clinical Impression: Post-op pain Dyspnea Qualifiers: Dyspnea type: shortness of breath Qualified Code(s): R06.02 - Shortness of breath Condition: Stable Record reviewed to determine appropriate education?: Yes Follow-Up: Mel Nieves DO [Primary Care Provider] - Prescriptions: Dexamethasone [Decadron] 4 mg PO DAILY #5 tablet Diazepam [Valium] 2 mg PO TID PRN #15 tablet PRN Reason: Spasms Oxycodone HCl/Acetaminophen [Percocet 5-325 mg Tablet] 1 each PO Q6H PRN #20 tablet PRN Reason: Pain Comments: Frequent fluids to maintain good hydration. Continue the Decadron daily for 5 more days. Change pain medicine from hydrocodone to oxycodone see if it is more effective. Diazepam 3 times a day if needed for spasms or tightness in the neck muscles. Follow-up with your surgeon December 06 as planned, call them tomorrow to see if they have a sooner appointment given the problems are having. Discharge Date/Time: 11/29/17 20:45
[2017-11-29] MEDS ORDERED: ALBUTEROL NEB 2.5 MG/3 ML INH STA (18:05)
[2017-11-29] MEDS ORDERED: ONDANSETRON 4 MG/2 ML VIAL IVP STA (18:05)
[2017-11-29] MEDS ORDERED: MORPHINE 10 MG/ML VIAL IVP STA (18:05)
[2017-11-29] MEDS ORDERED: SODIUM CHLORIDE 0.9% 1,000 ML IV ONE (18:05)
[2017-11-29] MEDS ORDERED: KETOROLAC 60 MG/2 ML VIAL IVP STA (18:07)
[2017-11-29 18:25] LABS: BILIRUBIN,URINE NEGATIVE (NEGATIVE); GLUCOSE, URINE (UA) NEGATIVE (NEGATIVE); KETONES,URINE (UA) NEGATIVE (NEGATIVE); LEUKOCYTE ESTERASE, URINE NEGATIVE (NEGATIVE); NITRITE,URINE NEGATIVE (NEGATIVE); OCCULT BLOOD,URINE TRACE-LYSE (NEGATIVE); PH,URINE 5.5 PH (5.0-7.5); PROTEIN,URINE NEGATIVE (NEGATIVE); UROBILINOGEN,URINE 0.2 (NORMAL) E.U./dL (NORMAL)
[2017-11-29 18:29] LABS: CLARITY,URINE CLEAR (CLEAR)
[2017-11-29 18:29] LABS: BASOPHILS % (AUTO) 0.4 %; HGB - HEMOGLOBIN 13.8 g/dL (12.0-16.0); LYMPHOCYTES # (AUTO) 0.6 10^3/uL (1.5-3.5); LYMPHOCYTES % (AUTO) 6.7 %; MEAN CORPUSCULAR HEMOGLOBIN 32.1 pg (27.0-31.0); MEAN CORPUSCULAR HGB CONC 33.3 g/dL (32.0-36.0); MEAN CORPUSCULAR VOLUME 96.4 fL (81.0-99.0); MEAN PLATELET VOLUME 8.9 fL (7.9-10.8); MONOCYTES # (AUTO) 0.1 10^3/uL (0.0-1.0); NEUTROPHILS # (AUTO) 8.6 10^3/uL (1.5-6.6); NEUTROPHILS % (AUTO) 91.9 %; PLT - PLATELET COUNT 227 10^3/uL (130-450); RED CELL DISTRIBUTION WIDTH 13.7 % (12.0-15.0); WHITE BLOOD COUNT 9.4 x10^3/uL (4.8-10.8)
[2017-11-29 18:43] LABS: ALBUMIN 3.8 g/dL (3.2-5.5); ALBUMIN/GLOBULIN RATIO 1.1 (1.0-2.2); BILIRUBIN,TOTAL 0.5 mg/dL (0.2-1.0); CALCIUM 9.2 mg/dL (8.5-10.3); CREATININE 0.8 mg/dL (0.4-1.0); MAGNESIUM 1.8 mg/dL (1.7-2.8); TOTAL PROTEIN 7.3 g/dL (6.7-8.2)
--- NOTE | 2017-11-29 19:47 | XRAY Report ---
Procedure Date: 11/29/2017 Accession Number: [id number] / [id number] Procedure: XR - Chest 2 View X-Ray CPT Code: 00668 FULL RESULT: EXAM: CHEST RADIOGRAPHY EXAM DATE: 11/29/2017 07:05 PM. CLINICAL HISTORY: Dyspnea and cough; 1 week post op cervical spine fusion. COMPARISON: 11/24/2017. TECHNIQUE: 2 views. FINDINGS: Lungs/Pleura: No focal opacities evident. No pleural effusion. No pneumothorax. Normal volumes. Mediastinum: Stable borderline cardiomegaly. No tracheal shift. Other: Cervical spine fusion. IMPRESSION: Borderline cardiomegaly. RADIA
[2017-11-29] MEDS ORDERED: oxyCOD/ACETAMIN 5 MG/325 MG TABLET PO STA (20:02)
[2017-11-29 20:14] VITALS: BP 124/75
[2017-11-29] MEDS ORDERED: LORazepam 0.5 MG TABLET PO STA (20:16)
== END 2017-11-29 20:45 | disposition home or self-care (01) ==
LOC: EDUNIT# → ED 17:33
DX: G89.18 Other acute postprocedural pain (principal); M54.2 Cervicalgia; R06.00 Dyspnea, unspecified
CPT/HCPCS: 36415; 71046; 80053; 81003; 83605; 83690; 83735; 85025; 93005; 94640; 96361; 96374; 96375; 99283; A9270; 81001; 87086

== ENCOUNTER 2017-12-08 15:31 | Outpatient (CLI) | payer MEDICAID, OTHER ==
[2017-12-08 13:37] LABS: HB2 TOTAL 13.3 g/dL; HEMOGLOBIN A1C 0.42 g/dL
== END 2017-12-08 15:32 | disposition home or self-care (01) ==
LOC: LAB.N 15:31
PROVIDERS: ATTEND Nurse Practitioner Obstetrics & Gynecology
DX: B37.2 Candidiasis of skin and nail (principal)
CPT/HCPCS: 36415; 83036

== ENCOUNTER 2017-12-19 10:33 | Emergency (ER) | payer OTHER, MEDICAID ==
--- NOTE | 2017-12-19 12:12 | ED Physician Documentation ---
PD HPI DYSPNEA - Stated complaint Stated Complaint: SOA/WEAKNESS/POST OP - Chief complaint Chief Complaint: General - History obtained from History obtained from: Patient - History of Present Illness Timing - onset: How many days ago (2) Timing - onset during: Rest Timing - details: Abrupt onset (she says she had onset yesterday and worse today of general joint aches (wrists, eblows, hips, knees) without URI symptoms , injury, fever, rash/redness. No prior similar.) Inciting event(s): No: Out of meds, URI Worsened by: Other (movement of joints. Has mild persistent dyspnea feeling as well, that she has had since neck surgery a month ago) Associated symptoms: Anxiety. No: Fever, Cough, Wheezing, Chest pain / discomfort, Bilateral edema Similar symptoms before: Has not had sx before Recently seen: Surgery (cervical spine surgery a month ago, healing okay.) Review of Systems Constitutional: reports: Fatigue. denies: Fever, Chills, Myalgias (arthralgias , not really muscles) Nose: denies: Rhinorrhea / runny nose, Congestion Throat: denies: Sore throat Cardiac: denies: Chest pain / pressure, Palpitations Respiratory: reports: Dyspnea (since her neck surgery, improving slowly (feels that the neck tissue gets in the way of breathing).). denies: Cough : denies: Dysuria, Discharge Skin: denies: Rash, Lesions Musculoskeletal: denies: Back pain Neurologic: denies: Generalized weakness, Focal weakness, Numbness, Near syncope , Altered mental status, Headache, Head injury Psychiatric: reports: Anxiety. 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 - Present Medications Home Medications: Ambulatory Orders Medication Instructions Recorded Confirmed Estradiol 1.5 mg PO DAILY 11/17/16 07/28/17 Escitalopram Oxalate [Lexapro] 20 mg PO DAILY 07/28/17 07/28/17 HYDROcod/ACETAM 5/325 [[place] 5/325] 1 - 2 ea PO Q6H PRN #10 tablet 07/28/17 Cyclobenzaprine [Flexeril] 10 mg PO TID PRN #20 tablet 09/02/17 HYDROcod/ACETAM 5/325 [[place] 5/325] 1 - 2 ea PO Q6H PRN #15 tablet 09/02/17 Dexamethasone [Decadron] 4 mg PO DAILY #5 tablet 11/24/17 Diazepam [Valium] 2 mg PO 11/24/17 Dexamethasone [Decadron] 4 mg PO DAILY #5 tablet 11/29/17 Diazepam [Valium] 2 mg PO TID PRN #15 tablet 11/29/17 Oxycodone HCl/Acetaminophen 1 each PO Q6H PRN #20 tablet 11/29/17 [Percocet 5-325 mg Tablet] Dexamethasone [Decadron] 4 mg PO DAILY #5 tablet 12/19/17 Naproxen 375 mg PO BID #20 tablet 12/19/17 - Allergies Allergies/Adverse Reactions: Allergies Allergy/AdvReac Type Severity Reaction Status Date / Time No Known Drug Allergies Allergy Verified 11/24/17 15:37 - Social History Does the pt smoke?: No Smoking Status: Never smoker Does the pt drink ETOH?: No Does the pt have substance abuse?: No - Immunizations Immunizations are current?: Yes - POLST Patient has POLST: No PD ED PE NORMAL - Vitals Vital signs reviewed: Yes - General General: Alert and oriented X 3, Well developed/nourished, Other (slightly anxious) - HEENT HEENT: Ears normal, Pharynx benign - Neck Neck: Supple, no meningeal sign, No adenopathy, Other (anterior neck surgical wound appears okay without signs of infection. ) - Cardiac Cardiac: RRR, No murmur - Respiratory Respiratory: Clear bilaterally - Abdomen Abdomen: Soft, Non tender - Female Female : Deferred - Rectal Rectal: Deferred - Derm Derm: Normal color, Warm and dry - Extremities Extremities: No tenderness to palpate, Normal ROM s pain, No edema, No calf tenderness / cord, Other (joints are without redness, swelling, decreased mobility.) - 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, No motor deficit, No sensory deficit, Normal speech Results - Vitals Vitals: Vital Signs - 24 hr 12/19/17 12/19/17 12/19/17 10:47 11:03 12:58 Temperature 36.8 C Heart Rate 95 79 71 Respiratory 16 16 15 Rate Blood Pressure 133/76 H 108/74 99/66 O2 Saturation 99 95 97 12/19/17 14:20 Temperature Heart Rate 69 Respiratory 16 Rate Blood Pressure 98/56 L O2 Saturation 96 Oxygen O2 Source Room air - Labs Labs: Laboratory Tests 12/19/17 12/19/17 12/19/17 12:40 12:40 12:40 WBC 5.4 RBC 4.07 L Hgb 13.2 Hct 38.3 MCV 94.1 MCH 32.5 H MCHC 34.6 RDW 13.8 Plt Count 191 MPV 8.0 Neut # (Auto) 3.1 Lymph # (Auto) 1.9 [place] # (Auto) 0.4 Eos # (Auto) 0.1 Baso # (Auto) 0.0 Absolute Nucleated RBC 0.00 Nucleated RBC % 0.0 ESR 25 H Sodium 135 Potassium 4.0 Chloride 103 Carbon Dioxide 26 Anion Gap 6.0 BUN 11 Creatinine 0.7 Estimated GFR (MDRD) 91 Glucose 102 H Calcium 8.9 Magnesium 1.8 Total Bilirubin 0.8 AST 33 ALT 47 Alkaline Phosphatase 44 Total Creatine Kinase 67 Total Protein 6.9 Albumin 3.9 Globulin 3.0 Albumin/Globulin Ratio 1.3 Lipase 21 L TSH Urine Color Urine Clarity Urine pH Ur Specific [place] Urine Protein Urine Glucose (UA) Urine Ketones Urine Occult Blood Urine Nitrite Urine Bilirubin Urine Urobilinogen Ur Leukocyte Esterase Ur Microscopic Review Urine Culture Comments 12/19/17 12/19/17 12:40 14:25 WBC RBC Hgb Hct MCV MCH MCHC RDW Plt Count MPV Neut # (Auto) Lymph # (Auto) [place] # (Auto) Eos # (Auto) Baso # (Auto) Absolute Nucleated RBC Nucleated RBC % ESR Sodium Potassium Chloride Carbon Dioxide Anion Gap BUN Creatinine Estimated GFR (MDRD) Glucose Calcium Magnesium Total Bilirubin AST ALT Alkaline Phosphatase Total Creatine Kinase Total Protein Albumin Globulin Albumin/Globulin Ratio Lipase TSH 0.16 L Urine Color YELLOW Urine Clarity CLEAR Urine pH 8.0 H Ur Specific [place] 1.015 Urine Protein NEGATIVE Urine Glucose (UA) NEGATIVE Urine Ketones NEGATIVE Urine Occult Blood NEGATIVE Urine Nitrite NEGATIVE Urine Bilirubin NEGATIVE Urine Urobilinogen 0.2 (NORMAL) Ur Leukocyte Esterase NEGATIVE Ur Microscopic Review NOT INDICATED Urine Culture Comments NOT INDICATED PD MEDICAL DECISION MAKING - ED course Complexity details: considered differential (diffuse arthralgias onset just 1-2 days, without focal infection nor URI symptoms. Not on any suspect meds to cause this (statins, quinolones, etc). ESR slightly elevated, so consider new onset autoimmune response. Not sure of cause right now. She does not look infected nor septic. Denies running out of pain meds. Slow recovery generally post surgery, in her opinion, so consider somatization symptoms due to stress/ anxious. ), d/w patient - Sepsis Event Vital Signs: Vital Signs - 24 hr 12/19/17 12/19/17 12/19/17 10:47 11:03 12:58 Temperature 36.8 C Heart Rate 95 79 71 Respiratory 16 16 15 Rate Blood Pressure 133/76 H 108/74 99/66 O2 Saturation 99 95 97 12/19/17 14:20 Temperature Heart Rate 69 Respiratory 16 Rate Blood Pressure 98/56 L O2 Saturation 96 Oxygen O2 Source Room air Departure - Departure Disposition: 01 Home, Self Care Clinical Impression: Arthralgia Qualifiers: Joint pain location: unspecified Qualified Code(s): M25.50 - Pain in unspecified joint Condition: Stable Record reviewed to determine appropriate education?: Yes Instructions: ED Acute Pain [facility] Follow-Up: Mel Nieves DO [Primary Care Provider] - Prescriptions: Dexamethasone [Decadron] 4 mg PO DAILY #5 tablet Naproxen 375 mg PO BID #20 tablet Comments: Rest for a day or 2. See how the symptoms progress or if you develop other symptoms such as a viral illness, fever, rash or other problems. Use anti- inflammatories naproxen and Decadron as directed. Follow-up with your primary care in the next several days if not fully improved. Forms: Activity restrictions Discharge Date/Time: 12/19/17 15:40
[2017-12-19] MEDS ORDERED: oxyCOD/ACETAMIN 5 MG/325 MG TABLET PO STA (12:26)
[2017-12-19] MEDS ORDERED: KETOROLAC 30 MG/ML VIAL IM STA (12:26)
[2017-12-19] MEDS ORDERED: DEXAMETHASONE 10 MG/ML VIAL PO STA (12:26)
[2017-12-19 12:48] LABS: BASOPHILS % (AUTO) 0.7 %; EOSINOPHILS # (AUTO) 0.1 10^3/uL (0.0-0.7); EOSINOPHILS % (AUTO) 1.2 %; HGB - HEMOGLOBIN 13.2 g/dL (12.0-16.0); LYMPHOCYTES # (AUTO) 1.9 10^3/uL (1.5-3.5); LYMPHOCYTES % (AUTO) 34.6 %; MEAN CORPUSCULAR HEMOGLOBIN 32.5 pg (27.0-31.0); MEAN CORPUSCULAR HGB CONC 34.6 g/dL (32.0-36.0); MEAN CORPUSCULAR VOLUME 94.1 fL (81.0-99.0); MONOCYTES # (AUTO) 0.4 10^3/uL (0.0-1.0); MONOCYTES % (AUTO) 6.7 %; NEUTROPHILS # (AUTO) 3.1 10^3/uL (1.5-6.6); NEUTROPHILS % (AUTO) 56.8 %; PLT - PLATELET COUNT 191 10^3/uL (130-450); RED BLOOD COUNT 4.07 10^6/uL (4.20-5.40); RED CELL DISTRIBUTION WIDTH 13.8 % (12.0-15.0); WHITE BLOOD COUNT 5.4 x10^3/uL (4.8-10.8)
[2017-12-19 13:00] LABS: ALBUMIN 3.9 g/dL (3.2-5.5); ALBUMIN/GLOBULIN RATIO 1.3 (1.0-2.2); BILIRUBIN,TOTAL 0.8 mg/dL (0.2-1.0); CALCIUM 8.9 mg/dL (8.5-10.3); CREATININE 0.7 mg/dL (0.4-1.0); MAGNESIUM 1.8 mg/dL (1.7-2.8); TOTAL PROTEIN 6.9 g/dL (6.7-8.2)
[2017-12-19] MEDS ORDERED: CHERRY SYRUP 10 ML UDC PO ONE (13:05)
--- NOTE | 2017-12-19 13:17 | XRAY Report ---
Procedure Date: 12/19/2017 Accession Number: [id number] / [id number] Procedure: XR - Chest 2 View X-Ray CPT Code: 04481 FULL RESULT: EXAM: CHEST RADIOGRAPHY EXAM DATE: 12/19/2017 12:58 PM. CLINICAL HISTORY: Dyspnea. COMPARISON: CHEST 2 VIEW 11/29/2017. TECHNIQUE: 2 views. FINDINGS: Lungs/Pleura: No focal opacities evident. No pleural effusion. No pneumothorax. Normal volumes. Mediastinum: Heart and mediastinal contours are unremarkable. Other: Anterior cervical spine fusion hardware is partially visualized at the superior margin of the image. No acute osseous abnormality. There are mild degenerative disk changes of the thoracic spine. There are surgical clips in the right upper quadrant of the abdomen. IMPRESSION: No acute cardiopulmonary abnormality. RADIA
[2017-12-19 14:21] VITALS: BP 98/56
[2017-12-19 14:36] LABS: BILIRUBIN,URINE NEGATIVE (NEGATIVE); GLUCOSE, URINE (UA) NEGATIVE (NEGATIVE); KETONES,URINE (UA) NEGATIVE (NEGATIVE); LEUKOCYTE ESTERASE, URINE NEGATIVE (NEGATIVE); NITRITE,URINE NEGATIVE (NEGATIVE); OCCULT BLOOD,URINE NEGATIVE (NEGATIVE); PROTEIN,URINE NEGATIVE (NEGATIVE); UROBILINOGEN,URINE 0.2 (NORMAL) E.U./dL (NORMAL)
[2017-12-19 14:39] LABS: CLARITY,URINE CLEAR (CLEAR)
== END 2017-12-19 15:40 | disposition home or self-care (01) ==
LOC: ED 10:33
DX: M25.50 Pain in unspecified joint (principal); R70.0 Elevated erythrocyte sedimentation rate; F41.9 Anxiety disorder, unspecified
CPT/HCPCS: 36415; 71046; 80053; 81003; 82550; 83690; 83735; 84443; 85025; 85651; 96372; 99283; A9270; 81001; 87086

== ENCOUNTER 2018-01-02 11:14 | Outpatient (CLI) | payer OTHER, MEDICAID ==
[2018-01-02 12:43] LABS: THYROID STIMULATING HORMONE 0.27 uIU/mL (0.34-5.60)
[2018-01-02 12:45] LABS: FREE T4 (FREE THYROXINE) 0.8 ng/dL (0.58-1.64)
== END 2018-01-02 11:15 | disposition home or self-care (01) ==
LOC: LAB 11:14
PROVIDERS: ATTEND Family Medicine
DX: R79.89 Other specified abnormal findings of blood chemistry (principal)
CPT/HCPCS: 36415; 84439; 84443; 84481

== ENCOUNTER 2018-01-04 08:00 | Outpatient (CLI) | payer OTHER, MEDICAID | END 2018-01-04 08:01 | disposition home or self-care (01) | LOC: LAB 08:00 | PROVIDERS: ATTEND Nurse Practitioner Obstetrics & Gynecology | DX: B37.2 Candidiasis of skin and nail (principal) | CPT/HCPCS: 36415; 82951 ==

== ENCOUNTER 2018-01-10 14:29 | Outpatient (CLI) | payer OTHER, MEDICAID ==
[2018-01-10 18:25] LABS: THYROID STIMULATING HORMONE 0.26 uIU/mL (0.34-5.60)
[2018-01-10 18:26] LABS: FREE T4 (FREE THYROXINE) 0.77 ng/dL (0.58-1.64)
[2018-01-10 18:30] LABS: TOTAL T3 1.08 ng/mL (0.87-1.78)
[2018-01-13 07:36] LABS: THYROID PEROXIDASE ANTIBODIES 2 IU/mL (<9)
== END 2018-01-10 14:30 | disposition home or self-care (01) ==
LOC: LAB.F 14:29
PROVIDERS: ATTEND Internal Medicine
DX: E05.90 Thyrotoxicosis, unspecified without thyrotoxic crisis or storm (principal)
CPT/HCPCS: 36415; 84439; 84443; 84480; 84481; 86376; 86800

== ENCOUNTER 2018-01-16 08:41 | Outpatient (CLI) | payer OTHER, MEDICAID ==
--- NOTE | 2018-01-17 11:15 | Nuclear Medicine Report ---
Procedure Date: 01/17/2018 Accession Number: [id number] / [id number] Procedure: NM - Thyroid Imaging and Uptake CPT Code: 62013 FULL RESULT: EXAM: THYROID UPTAKE AND SCAN EXAM DATE: 01/17/2018 10:52 AM. CLINICAL HISTORY: HYPERTHYROIDISM. COMPARISON: CT neck 11/24/2017. TECHNIQUE: Patient was administered 320 microcuries of I-123 orally and returned at 4 and 24 hours for thyroid uptake measurement. At 4 hours after radioiodine ingestion, anterior gamma camera images of the patient's neck were obtained from 3 standard angles. FINDINGS: Uptake: 4 Hour: 6% (Normal 4-18%). 24 Hour: 16% (Normal 8-32%). Thyroid Scan: Thyroid gland appears mildly enlarged. No discrete hot or cold nodules. IMPRESSION: 1. Radioiodine uptake is in the normal range. 2. No discrete hot or cold nodules. RADIA
== END 2018-01-16 08:42 | disposition home or self-care (01) ==
LOC: DI 08:41
PROVIDERS: ATTEND Internal Medicine
DX: E05.90 Thyrotoxicosis, unspecified without thyrotoxic crisis or storm (principal)
CPT/HCPCS: 78014

== ENCOUNTER 2018-02-03 14:34 | Emergency (ER) | payer OTHER, MEDICAID ==
[2018-02-03] MEDS ORDERED: diphenhydrAMINE INJ 50 MG/ML VIAL IVP STA (14:51)
[2018-02-03] MEDS ORDERED: PROCHLORPERAZINE INJ 10 MG in SODIUM CHLORIDE 0.9% 50 ML IV ONE (14:51)
[2018-02-03] MEDS ORDERED: SODIUM CHLORIDE 0.9% 1,000 ML IV ONE (14:51)
[2018-02-03] MEDS ORDERED: KETOROLAC 30 MG/ML VIAL IVP STA (14:52)
[2018-02-03] MEDS ORDERED: DEXAMETHASONE 10 MG/ML VIAL IVP STA (14:52)
--- NOTE | 2018-02-03 15:01 | ED Physician Documentation ---
PD HPI HEADACHE - Stated complaint Stated Complaint: EATON/N/VISION CHANGES - Chief complaint Chief Complaint: Heent - History obtained from History obtained from: Patient - History of Present Illness Timing - onset: Today Timing - onset during: Sleep Timing - details: Still present Worst headache ever?: Worst headache ever? (No) Location: Global Quality: Aching Associated symptoms: Nausea, Vision changes (blurring, photosensitivity.) Similar symptoms before: Diagnosis (h/o migraines) - Treatment prior to arrival Treatment prior to arrival: Tylenol and pseudofed without relief. - Additional information Additional information: The patient is a 42-year-old female who presents with headache that was present when she awoke this morning, and has become progressively worse. It was initially bifrontal, but his become global. She reports associated nausea, without vomiting. She reports photosensitivity, blurring of her vision, and lightheadedness. She denies fever, numbness or weakness. She has been using Tylenol and Sudafed without relief. Past medical history is significant for migraine headaches, but she is not usually lightheaded with her migraines. Within the past month she has been diagnosed with hyperthyroidism, and was started on methimazole 1 week ago. She is 2-1/2 months status post cervical spine surgery by an anterior approach. Review of Systems Constitutional: reports: Other (lightheaded). denies: Fever, Myalgias Eyes: reports: Decreased vision (blurring), Photophobia Ears: denies: Ear pain, Tinnitus/ringing Nose: denies: Congestion Throat: denies: Sore throat Cardiac: denies: Chest pain / pressure, Palpitations Respiratory: denies: Dyspnea, Cough GI: reports: Nausea. denies: Abdominal Pain, Vomiting : denies: Dysuria Skin: denies: Rash Musculoskeletal: denies: Back pain Neurologic: reports: Headache. 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 - Present Medications Home Medications: Ambulatory Orders Medication Instructions Recorded Confirmed Estradiol 1.5 mg PO DAILY 11/17/16 07/28/17 Escitalopram Oxalate [Lexapro] 20 mg PO DAILY 07/28/17 07/28/17 HYDROcod/ACETAM 5/325 [[place] 5/325] 1 - 2 ea PO Q6H PRN #10 tablet 07/28/17 Cyclobenzaprine [Flexeril] 10 mg PO TID PRN #20 tablet 09/02/17 HYDROcod/ACETAM 5/325 [[place] 5/325] 1 - 2 ea PO Q6H PRN #15 tablet 09/02/17 Dexamethasone [Decadron] 4 mg PO DAILY #5 tablet 11/24/17 Diazepam [Valium] 2 mg PO 11/24/17 Dexamethasone [Decadron] 4 mg PO DAILY #5 tablet 11/29/17 Diazepam [Valium] 2 mg PO TID PRN #15 tablet 11/29/17 Oxycodone HCl/Acetaminophen 1 each PO Q6H PRN #20 tablet 11/29/17 [Percocet 5-325 mg Tablet] Dexamethasone [Decadron] 4 mg PO DAILY #5 tablet 12/19/17 Naproxen 375 mg PO BID #20 tablet 12/19/17 HYDROcod/ACETAM 5/325 [[place] 5/325] 1 - 2 ea PO Q6H PRN #10 tablet 02/03/18 Promethazine [Phenergan] 25 - 50 mg PO Q6H PRN #10 tab 02/03/18 - Allergies Allergies/Adverse Reactions: Allergies Allergy/AdvReac Type Severity Reaction Status Date / Time No Known Drug Allergies Allergy Verified 02/03/18 14:41 - Social History Does the pt smoke?: No Smoking Status: Never smoker Does the pt drink ETOH?: No Does the pt have substance abuse?: No - Immunizations Immunizations are current?: Yes - POLST Patient has POLST: No PD ED PE NORMAL - Vitals Vital signs reviewed: Yes (normal) - General General: Alert and oriented X 3, Well developed/nourished, Other (Obese) - HEENT HEENT: Atraumatic, PERRL, EOMI, Moist mucous membranes, Pharynx benign, Other ( Fundi with normal vasculature.) - Neck Neck: Supple, no meningeal sign, No adenopathy - Cardiac Cardiac: RRR, No murmur - Respiratory Respiratory: No respiratory distress, Clear bilaterally - Abdomen Abdomen: Soft, Non tender - Back Back: No CVA TTP - Derm Derm: No rash - Extremities Extremities: No edema, No calf tenderness / cord - 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, No motor deficit, No sensory deficit Results - Vitals Vitals: Oxygen O2 Source Room air PD MEDICAL DECISION MAKING - ED course Complexity details: reviewed old records, re-evaluated patient, considered differential, d/w patient ED course: The patient's presentation is most consistent with migraine headache associated , nausea, and lightheadedness. Her presentation does not suggest meningitis, intracranial hemorrhage, temporal arteritis, nor pseudotumor cerebri. Treatment in the emergency department included administration of normal saline 1 L IV, Compazine 5 mg IV, Benadryl 25 mg IV, dexamethasone 10 mg IV, and ketorolac 30 mg IV. Her symptoms improved with the above treatment. She is being discharged with prescriptions for Phenergan and for Vicodin, 10 tablets. I discussed with her symptomatic treatment and outpatient follow-up, as well as potentially worrisome signs or symptoms that should prompt reevaluation in the emergency department. - Sepsis Event Vital Signs: Oxygen O2 Source Room air Departure - Departure Disposition: Home, Self Care Clinical Impression: Headache Qualifiers: Headache type: unspecified Headache chronicity pattern: acute headache Intractability: not intractable Qualified Code(s): R51 - Headache Condition: Stable Instructions: ED Cephalgia Unspecified Follow-Up: Arturo Gonzalez MD [Primary Care Provider] - Prescriptions: HYDROcod/ACETAM 5/325 [[place] 5/325] 1 - 2 ea PO Q6H PRN #10 tablet PRN Reason: Pain Promethazine [Phenergan] 25 - 50 mg PO Q6H PRN #10 tab PRN Reason: Nausea / Vomiting Comments: You continues Phenergan as prescribed if needed for nausea. You can use ibuprofen, up to 800 mg 3 times daily for its anti-inflammatory effect. You can use Vicodin as prescribed if needed for pain. Follow up with your primary physician within 1-2 weeks. Call to schedule an appointment. Return to the emergency department if you develop increasing headache, persistent vomiting, or otherwise worsening symptoms Discharge Date/Time: 02/03/18 18:08
[2018-02-03 18:07] VITALS: BP 128/78
== END 2018-02-03 18:08 | disposition home or self-care (01) ==
LOC: ED 14:34
DX: R51 Headache (principal); R11.0 Nausea
CPT/HCPCS: 96361; 96365; 96375; 99283; 99284; J1200; J7040

== ENCOUNTER 2018-02-22 13:56 | Outpatient (CLI) | payer OTHER, MEDICAID ==
[2018-02-22 14:34] LABS: HGB - HEMOGLOBIN 13.6 g/dL (12.0-16.0); MEAN CORPUSCULAR HEMOGLOBIN 32.6 pg (27.0-31.0); MEAN CORPUSCULAR HGB CONC 35.1 g/dL (32.0-36.0); MEAN PLATELET VOLUME 9.3 fL (7.9-10.8); RED BLOOD COUNT 4.16 10^6/uL (4.20-5.40); RED CELL DISTRIBUTION WIDTH 12.8 % (12.0-15.0); WHITE BLOOD COUNT 4.5 x10^3/uL (4.8-10.8)
[2018-02-22 17:11] LABS: THYROID STIMULATING HORMONE 0.31 uIU/mL (0.34-5.60)
[2018-02-22 17:18] LABS: TOTAL T3 1.26 ng/mL (0.87-1.78)
== END 2018-02-22 13:57 | disposition home or self-care (01) ==
LOC: LAB 13:56
PROVIDERS: ATTEND Internal Medicine
DX: E05.90 Thyrotoxicosis, unspecified without thyrotoxic crisis or storm (principal)
CPT/HCPCS: 36415; 84443; 84480; 84481; 85027

== ENCOUNTER 2018-07-01 10:18 | Emergency (ER) | payer MEDICAID, OTHER ==
[2018-07-01 10:26] VITALS: BP 144/97
[2018-07-01] MEDS ORDERED: DEXAMETHASONE 10 MG/ML VIAL PO STA (11:53)
--- NOTE | 2018-07-01 11:55 | ED Physician Documentation ---
PD HPI HEENT - Stated complaint Stated Complaint: SORE THROAT/EAR PX - Chief complaint Chief Complaint: Heent - History obtained from History obtained from: Patient - History of Present Illness Timing - onset: How many days ago (2) Timing - duration: Days (2) Timing - details: Gradual onset, Still present Location: Right ear, Left ear, Sinuses, Throat Worsens: Swalllowing Associated symptoms: Congestion, Rhinorrhea, Swollen nodes, Headache, Cough Similar symptoms before: Has not had sx before Recently seen: Not recently seen - Additional information Additional information: 43-year-old female has been sick for 3 days with a congestion sore throat swollen nodes and mild cough. She also confirms ear pain muffled hearing and a feeling that she is under water. Review of Systems Constitutional: reports: Chills, Fatigue, Sweats. denies: Fever Eyes: denies: Decreased vision Ears: reports: Ear pain Nose: reports: Rhinorrhea / runny nose, Congestion Throat: reports: Sore throat Cardiac: denies: Chest pain / pressure, Palpitations Respiratory: reports: Cough. 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 - Present Medications Home Medications: Ambulatory Orders Medication Instructions Recorded Confirmed Estradiol 1.5 mg PO DAILY 11/17/16 07/28/17 Escitalopram Oxalate [Lexapro] 20 mg PO DAILY 07/28/17 07/28/17 HYDROcod/ACETAM 5/325 [[place] 5/325] 1 - 2 ea PO Q6H PRN #10 tablet 07/28/17 Cyclobenzaprine [Flexeril] 10 mg PO TID PRN #20 tablet 09/02/17 HYDROcod/ACETAM 5/325 [[place] 5/325] 1 - 2 ea PO Q6H PRN #15 tablet 09/02/17 Dexamethasone [Decadron] 4 mg PO DAILY #5 tablet 11/24/17 Diazepam [Valium] 2 mg PO 11/24/17 Dexamethasone [Decadron] 4 mg PO DAILY #5 tablet 11/29/17 Diazepam [Valium] 2 mg PO TID PRN #15 tablet 11/29/17 Oxycodone HCl/Acetaminophen 1 each PO Q6H PRN #20 tablet 11/29/17 [Percocet 5-325 mg Tablet] Dexamethasone [Decadron] 4 mg PO DAILY #5 tablet 12/19/17 Naproxen 375 mg PO BID #20 tablet 12/19/17 HYDROcod/ACETAM 5/325 [[place] 5/325] 1 - 2 ea PO Q6H PRN #10 tablet 02/03/18 Promethazine [Phenergan] 25 - 50 mg PO Q6H PRN #10 tab 02/03/18 Amox/Clav 875/125 [Augmentin] 1 each PO Q12H #20 tablet 07/01/18 - Allergies Allergies/Adverse Reactions: Allergies Allergy/AdvReac Type Severity Reaction Status Date / Time No Known Drug Allergies Allergy Verified 07/01/18 10:26 - Social History Does the pt smoke?: No Smoking Status: Never smoker Does the pt drink ETOH?: No Does the pt have substance abuse?: No - Immunizations Immunizations are current?: Yes - POLST Patient has POLST: No PD ED PE NORMAL - Vitals Vital signs reviewed: Yes (hypertensive ) - General General: Alert and oriented X 3, No acute distress, Well developed/nourished - HEENT HEENT: Atraumatic, PERRL, EOMI, Other (The right TM is inflamed along the umbo and the left is retracted and dull. 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, No motor deficit, No sensory deficit, Normal speech Eye Opening: Spontaneous Motor: Obeys Commands Verbal: Oriented GCS Score: 15 - Psych Psych: Normal mood, Normal affect Results - Vitals Vitals: Vital Signs - 24 hr 01/26/19 10:24 Temperature 35.6 C L Heart Rate 95 Respiratory 14 Rate Blood Pressure 144/97 H O2 Saturation 100 Oxygen O2 Source Room air - Labs Labs: Laboratory Tests 07/01/18 10:26 Group A Strep Rapid Negative PD MEDICAL DECISION MAKING - ED course Complexity details: considered differential, d/w patient ED course: 43-year-old female with a sore throat mild cough and ear pain has otitis on exam she is a cut order hand dexamethasone 10 mg orally and we will start her on some Augmentin. Her rapid strep is negative. Departure - Departure Disposition: Home, Self Care Clinical Impression: Otitis media Qualifiers: Otitis media type: suppurative Chronicity: acute Laterality: bilateral Recurrence: not specified as recurrent Spontaneous tympanic membrane rupture: without spontaneous rupture Qualified Code(s): H66.003 - Acute suppurative otitis media without spontaneous rupture of ear drum, bilateral Condition: Stable Instructions: ED Otitis Media Acute Adult Follow-Up: Mel Nieves DO [Primary Care Provider] - Prescriptions: Amox/Clav 875/125 [Augmentin] 1 each PO Q12H #20 tablet
[2018-07-01] MEDS ORDERED: CHERRY SYRUP 10 ML UDC PO ONE (12:01)
== END 2018-07-01 12:01 | disposition home or self-care (01) ==
LOC: ED 10:18
DX: H66.003 Acute suppurative otitis media without spontaneous rupture of ear drum, bilateral (principal)
CPT/HCPCS: 87070; 87430; 99283; A9270

== ENCOUNTER 2018-07-31 12:01 | Outpatient (CLI) | payer MEDICAID | END 2018-07-31 12:02 | disposition home or self-care (01) | LOC: LAB 12:01 | PROVIDERS: ATTEND Family Medicine | DX: Z11.1 Encounter for screening for respiratory tuberculosis (principal) | CPT/HCPCS: 36415; 81599; 86480 ==

== ENCOUNTER 2018-08-10 11:02 | Emergency (ER) | payer MEDICAID ==
[2018-08-10] MEDS ORDERED: IOPAMIDOL-300 100 ML VIAL IVP ONE ×2 (11:03→14:53)
[2018-08-10] MEDS ORDERED: ONDANSETRON 4 MG/2 ML VIAL IVP STA (11:39)
[2018-08-10] MEDS ORDERED: ASPIRIN CHEW 81 MG TABLET PO STA (11:39)
[2018-08-10] MEDS ORDERED: MORPHINE 2 MG/ML CARPUJECT IVP STA (11:39)
[2018-08-10] MEDS ORDERED: SODIUM CHLORIDE 0.9% 1,000 ML IV ONE (11:39)
[2018-08-10 11:45] LABS: BASOPHILS % (AUTO) 0.4 %; EOSINOPHILS # (AUTO) 0.1 10^3/uL (0.0-0.7); EOSINOPHILS % (AUTO) 0.8 %; HGB - HEMOGLOBIN 13.1 g/dL (12.0-16.0); LYMPHOCYTES # (AUTO) 2.5 10^3/uL (1.5-3.5); LYMPHOCYTES % (AUTO) 39.1 %; MEAN CORPUSCULAR HEMOGLOBIN 31.6 pg (27.0-31.0); MEAN CORPUSCULAR HGB CONC 34.2 g/dL (32.0-36.0); MEAN CORPUSCULAR VOLUME 92.6 fL (81.0-99.0); MEAN PLATELET VOLUME 8.5 fL (7.9-10.8); MONOCYTES # (AUTO) 0.4 10^3/uL (0.0-1.0); MONOCYTES % (AUTO) 6.8 %; NEUTROPHILS # (AUTO) 3.4 10^3/uL (1.5-6.6); NEUTROPHILS % (AUTO) 52.9 %; PLT - PLATELET COUNT 249 10^3/uL (130-450); RED BLOOD COUNT 4.13 10^6/uL (4.20-5.40); RED CELL DISTRIBUTION WIDTH 12.8 % (12.0-15.0); WHITE BLOOD COUNT 6.4 x10^3/uL (4.8-10.8)
--- NOTE | 2018-08-10 11:50 | ED Physician Documentation ---
PD HPI CHEST PAIN - Stated complaint Stated Complaint: CHEST PX - Chief complaint Chief Complaint: Cardiac - Additional information Additional information: Presents the emergency department with complaints of chest pain which started while at work and is associated with dizziness and radiates to her back. Symptoms are described as moderate. No triggering factors. Symptoms have eased up. The patient also reports feeling nauseous. No other associated symptoms. No history of similar. Review of Systems Constitutional: denies: Fever, Fatigue Eyes: denies: Loss of vision Ears: denies: Ear pain Nose: denies: Congestion Throat: denies: Sore throat Cardiac: denies: Chest pain / pressure Respiratory: reports: Dyspnea. denies: Cough, Wheezing GI: denies: Abdominal Pain : denies: Dysuria Skin: denies: Rash Musculoskeletal: denies: Neck pain Neurologic: denies: Generalized weakness, Near syncope, Syncope PD PAST MEDICAL HISTORY - Past Medical History Cardiovascular: None Respiratory: None Neuro: None Endocrine/Autoimmune: HyPERthyroidism GI: GERD Psych: Depression, Anxiety Musculoskeletal: Chronic back pain, Other - Past Surgical History Past Surgical History: Yes General: Cholecystectomy 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, Rotator cuff repair, Other /HEALTH SERVICES RN: Tubal ligation, 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 - Present Medications Home Medications: Ambulatory Orders Medication Instructions Recorded Confirmed Estradiol 1 mg PO DAILY 11/17/16 08/10/18 DULoxetine [Cymbalta] 2 tab PO DAILY 08/10/18 08/10/18 - Allergies Allergies/Adverse Reactions: Allergies Allergy/AdvReac Type Severity Reaction Status Date / Time No Known Drug Allergies Allergy Verified 08/10/18 11:12 - Social History Does the pt smoke?: No Smoking Status: Never smoker Does the pt drink ETOH?: No Does the pt have substance abuse?: No - Immunizations Immunizations are current?: Yes - POLST Patient has POLST: No PD ED PE NORMAL - General General: Alert and oriented X 3, No acute distress - HEENT HEENT: Atraumatic, PERRL, EOMI, Ears normal - Neck Neck: Supple, no meningeal sign - Cardiac Cardiac: RRR, Strong equal pulses - Respiratory Respiratory: No respiratory distress, Clear bilaterally - Abdomen Abdomen: Soft, Non tender, Non distended - Derm Derm: Normal color - Extremities Extremities: No deformity, Normal ROM s pain - 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, Normal speech - Psych Psych: Normal affect Results - Vitals Vitals: Vital Signs - 24 hr 08/10/18 08/10/18 08/10/18 11:10 11:18 12:28 Temperature 36.4 C L Heart Rate 84 73 Respiratory 18 20 14 Rate Blood Pressure 130/90 H 122/73 O2 Saturation 98 99 08/10/18 13:08 Temperature 36.3 C L Heart Rate 76 Respiratory 20 Rate Blood Pressure 129/83 H O2 Saturation 100 Oxygen O2 Source Room air - EKG (time done) 11:15 Rate: Rate (enter#) Rhythm: NSR [place]: Normal Intervals: Normal IN, QRS normal QRS: Normal Ischemia: Normal ST segments Other comments: Other comments (A second EKG was performed and there was no changes from the original) - Labs Labs: Laboratory Tests 08/10/18 08/10/18 08/10/18 11:25 11:25 11:25 WBC 6.4 RBC 4.13 L Hgb 13.1 Hct 38.3 MCV 92.6 MCH 31.6 H MCHC 34.2 RDW 12.8 Plt Count 249 MPV 8.5 Neut # (Auto) 3.4 Lymph # (Auto) 2.5 [place] # (Auto) 0.4 Eos # (Auto) 0.1 Baso # (Auto) 0.0 Absolute Nucleated RBC 0.00 Nucleated RBC % 0.0 D-Dimer Sodium 140 Potassium 3.9 Chloride 104 Carbon Dioxide 26 Anion Gap 10.0 BUN 15 Creatinine 0.9 Estimated GFR (MDRD) 68 L Glucose 94 Calcium 9.6 Total Bilirubin 0.4 AST 19 ALT 19 Alkaline Phosphatase 64 Troponin I < 0.04 Total Protein 7.5 Albumin 4.4 Globulin 3.1 Albumin/Globulin Ratio 1.4 Lipase 33 08/10/18 08/10/18 11:25 15:50 WBC RBC Hgb Hct MCV MCH MCHC RDW Plt Count MPV Neut # (Auto) Lymph # (Auto) [place] # (Auto) Eos # (Auto) Baso # (Auto) Absolute Nucleated RBC Nucleated RBC % D-Dimer 217.1 Sodium Potassium Chloride Carbon Dioxide Anion Gap BUN Creatinine Estimated GFR (MDRD) Glucose Calcium Total Bilirubin AST ALT Alkaline Phosphatase Troponin I < 0.04 Total Protein Albumin Globulin Albumin/Globulin Ratio Lipase - Rads (name of study) CTA chest Radiology: Final report received, See rad report (1. No pulmonary emboli. ) PD MEDICAL DECISION MAKING - ED course ED course: The patient's workup in the emergency department does not reveal any significant abnormality that would require admission to the hospital. Per the heart score the patient is in a low risk category and appears appropriate for discharge with further workup as an outpatient. The patient understands and agrees to the plan will follow up with primary care for an outpatient stress test. I also discussed the possibility of this being a gastric origin since she does take ibuprofen on a regular basis and consumes a fair amount of coffee. I recommended stopping the Motrin and taking Pepcid for the next 14 days daily to see if this helps with her symptoms. The patient understands and agrees. I discussed warning signs and recommended returning for any worsening or any concerns Departure - Departure Disposition: 01 Home, Self Care Clinical Impression: Chest pain Qualifiers: Chest pain type: unspecified Qualified Code(s): R07.9 - Chest pain, unspecified Condition: Good Instructions: ED Chest Pain Formerly [facility], 1928–1983 Follow-Up: Mel Nieves, [Primary Care Provider] - Within 3 Days (Please follow-up with your primary care physician this week so that they can arrange for an outpatient stress test to further evaluate your symptoms) Comments: Please return to the emergency department for any worsening or any concerns
[2018-08-10 12:01] LABS: ALBUMIN 4.4 g/dL (3.2-5.5); ALBUMIN/GLOBULIN RATIO 1.4 (1.0-2.2); BILIRUBIN,TOTAL 0.4 mg/dL (0.2-1.0); CALCIUM 9.6 mg/dL (8.5-10.3); CREATININE 0.9 mg/dL (0.4-1.0); TOTAL PROTEIN 7.5 g/dL (6.7-8.2)
[2018-08-10] MEDS ORDERED: IOPAMIDOL-300 100 ML VIAL ONE (12:30)
--- NOTE | 2018-08-10 12:36 | XRAY Report ---
Reason: chest pain Procedure Date: 08/10/2018 Accession Number: [id number] / [id number] Procedure: XR - Chest 1 View X-Ray CPT Code: 81754 FULL RESULT: EXAM: CHEST RADIOGRAPHY EXAM DATE: 08/10/2018 12:21 PM. CLINICAL HISTORY: Chest pain. Nausea. COMPARISON: CHEST 2 VIEW 12/19/2017 12:45 PM. TECHNIQUE: 1 view. FINDINGS: Lungs/Pleura: No focal opacities evident. No pleural effusion. No pneumothorax. Mediastinum: Heart size upper normal. Aorta is mildly tortuous. Other: Changes again seen partially from inferior cervical fusion. IMPRESSION: 1. No acute disease in the chest. RADIA
[2018-08-10] MEDS ORDERED: LORazepam 2 MG/ML VIAL IVP STA ×2 (12:50→15:56)
[2018-08-10] MEDS ORDERED: PROMETHAZINE INJ 12.5 MG in SODIUM CHLORIDE 0.9% 50 ML IV STA (12:50)
--- NOTE | 2018-08-10 13:37 | CT Report ---
Reason: cp elevated d-dimer Procedure Date: 08/10/2018 Accession Number: [id number] / [id number] Procedure: CT - ANGIO CHEST W/WO CPT Code: FULL RESULT: EXAM: CT ANGIOGRAM CHEST EXAM DATE: 08/10/2018 12:59 PM. CLINICAL HISTORY: Cp elevated d-dimer. COMPARISON: None. TECHNIQUE: Routine helical imaging was performed through the chest in the pulmonary arterial phase. IV Contrast: ISOVUE 300 57 cc. Reconstructions: Coronal 3-D MIP reconstructions.Sagittal and coronal. In accordance with CT protocol optimization, one or more of the following dose reduction techniques were utilized for this exam: automated exposure control, adjustment of mA and/or KV based on patient size, or use of iterative reconstructive technique. FINDINGS: Pulmonary Arteries: Diagnostic quality: Adequate through the segmental arteries. No evidence for acute or chronic pulmonary emboli. RV/LV is within normal limits. There is no interventricular septal bowing. There is no reflux of contrast material in the IVC. Lungs/Pleura: No consolidation, nodules, or edema. No effusions or pneumothorax. Calcified granuloma Mediastinum: Normal. No cardiac enlargement or adenopathy. Thoracic Aorta: Unremarkable. Upper Abdomen: Diverticulosis Other: None. IMPRESSION: 1. No pulmonary emboli. RADIA
[2018-08-10] MEDS: IOVERSOL 320 100 ML VIAL IVP ONE ×2 (13:42→14:53)
[2018-08-10] MEDS ORDERED: KETOROLAC 15 MG/ML VIAL IVP STA (15:56)
[2018-08-10] MEDS ORDERED: MAG HYDROX/AL HYDROX/SIMETH 30 ML UDC PO STA (16:27)
[2018-08-10] MEDS ORDERED: FAMOTIDINE 20 MG in SODIUM CHLORIDE 0.9% 50 ML IV STA (16:27)
[2018-08-10 17:23] VITALS: BP 130/84
== END 2018-08-10 17:33 | disposition home or self-care (01) ==
LOC: ED 11:02
DX: R07.9 Chest pain, unspecified (principal)
CPT/HCPCS: 36415; 71045; 71275; 80053; 83690; 84484; 85025; 85379; 93005; 96361; 96365; 96375; 99283; 99284; A9270; J2060; J7040; Q9967

== ENCOUNTER 2018-10-11 15:33 | Emergency (ER) | payer MEDICAID ==
--- NOTE | 2018-10-11 16:01 | ED Physician Documentation ---
PD HPI ABD PAIN - Stated complaint Stated Complaint: L SIDE FLANK PX/SORE THROAT - Chief complaint Chief Complaint: Abd Pain - History obtained from History obtained from: Patient - History of Present Illness Timing - onset: How many weeks ago (2) Timing - duration: Weeks (2) Timing - details: Gradual onset, Still present, Waxing and waning Quality: Sharp, Pain Location: LUQ Radiation: Chest Improved by: Other (nothing) Worsened by: Other (nothing) Associated symptoms: No: Fever, Nausea, Vomiting, Hematemesis, Diarrhea, Constipation, Melena, Hematochezia, Dysuria, Hematuria, Chest pain, Dizzy, Near syncope / syncope, Loss of appetite, Weight loss, Vaginal bleeding, Vaginal dc Similar symptoms before: Diagnosis (kidney stone and muscle strain) Recently seen: Not recently seen - Additional information Additional information: Previously well 43-year-old female with a history of prior kidney stone has de veloped left flank pain about 2 weeks ago. She has had some undulation of this pain throughout the past 2 weeks and over the past 2 days her pain is mounted and become significantly worse. She is unable to relieve the pain with use of Tylenol she does not have any factors that will make the pain worse and she is not able to get improvement in the pain with any specific maneuver. Review of Systems Constitutional: reports: Fatigue. denies: Fever, Chills Eyes: denies: Decreased vision Ears: denies: Ear pain Nose: denies: Congestion Throat: denies: Sore throat Cardiac: denies: Chest pain / pressure, Palpitations Respiratory: denies: Dyspnea, Cough GI: reports: Abdominal Pain. denies: Nausea, Vomiting, Constipation, Diarrhea : denies: Dysuria, Frequency Skin: denies: Rash Musculoskeletal: reports: Back pain. denies: Neck pain, Extremity pain Neurologic: denies: Generalized weakness, Focal weakness, Numbness PD PAST MEDICAL HISTORY - Past Medical History Cardiovascular: None Respiratory: None Neuro: None Endocrine/Autoimmune: HyPERthyroidism GI: GERD Psych: Depression, Anxiety Musculoskeletal: Chronic back pain, Other - Past Surgical History Past Surgical History: Yes General: Cholecystectomy 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, Rotator cuff repair, Other /[facility]: Tubal ligation, 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 - Present Medications Home Medications: Ambulatory Orders Medication Instructions Recorded Confirmed Estradiol 1 mg PO DAILY 11/17/16 08/10/18 DULoxetine [Cymbalta] 2 tab PO DAILY 08/10/18 08/10/18 Hydrocodone/Acetaminophen 1 - 2 each PO Q6H PRN #14 tablet 10/11/18 [Hydrocodon-Acetaminophen 5-325] - Allergies Allergies/Adverse Reactions: Allergies Allergy/AdvReac Type Severity Reaction Status Date / Time No Known Drug Allergies Allergy Verified 08/10/18 11:12 - Social History Does the pt smoke?: No Smoking Status: Never smoker Does the pt drink ETOH?: No Does the pt have substance abuse?: No - Immunizations Immunizations are current?: Yes - POLST Patient has POLST: No PD ED PE NORMAL - Vitals Vital signs reviewed: Yes (hypertensive ) - General General: Alert and oriented X 3, No acute distress, Well developed/nourished - HEENT HEENT: Atraumatic, PERRL, EOMI - Cardiac Cardiac: RRR, No murmur - Respiratory Respiratory: No respiratory distress, Clear bilaterally - Abdomen Abdomen: Soft, Non tender - Back Back: No CVA TTP, No spinal TTP - Derm Derm: Normal color, Warm and dry, No rash - Extremities Extremities: No deformity, No edema - 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, 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, No motor deficit, No sensory deficit, Normal speech Eye Opening: Spontaneous Motor: Obeys Commands Verbal: Oriented GCS Score: 15 - Psych Psych: Normal mood, Normal affect Results - Vitals Vitals: Vital Signs - 24 hr 10/11/18 10/11/18 15:38 17:07 Temperature 36.4 C L Heart Rate 81 79 Respiratory 18 14 Rate Blood Pressure 148/102 H 134/79 H O2 Saturation 99 95 Oxygen O2 Source Room air - Labs Labs: Laboratory Tests 10/11/18 10/11/18 10/11/18 16:30 16:30 16:30 WBC 6.3 RBC 4.32 Hgb 13.5 Hct 40.3 MCV 93.3 MCH 31.2 H MCHC 33.5 RDW 12.8 Plt Count 226 MPV 8.5 Neut # (Auto) 3.1 Lymph # (Auto) 2.7 [place] # (Auto) 0.4 Eos # (Auto) 0.0 Baso # (Auto) 0.0 Absolute Nucleated RBC 0.00 Nucleated RBC % 0.1 Sodium 137 Potassium 3.8 Chloride 99 L Carbon Dioxide 27 Anion Gap 11.0 BUN 14 Creatinine 0.6 Estimated GFR (MDRD) 109 Glucose 88 Calcium 9.1 Total Bilirubin 0.6 AST 18 ALT 19 Alkaline Phosphatase 60 Troponin I < 0.04 Total Protein 7.0 Albumin 4.2 Globulin 2.8 Albumin/Globulin Ratio 1.5 Lipase 29 Urine Color Urine Clarity Urine pH Ur Specific [place] Urine Protein Urine Glucose (UA) Urine Ketones Urine Occult Blood Urine Nitrite Urine Bilirubin Urine Urobilinogen Ur Leukocyte Esterase Ur Microscopic Review Urine Culture Comments 10/11/18 16:30 WBC RBC Hgb Hct MCV MCH MCHC RDW Plt Count MPV Neut # (Auto) Lymph # (Auto) [place] # (Auto) Eos # (Auto) Baso # (Auto) Absolute Nucleated RBC Nucleated RBC % Sodium Potassium Chloride Carbon Dioxide Anion Gap BUN Creatinine Estimated GFR (MDRD) Glucose Calcium Total Bilirubin AST ALT Alkaline Phosphatase Troponin I Total Protein Albumin Globulin Albumin/Globulin Ratio Lipase Urine Color YELLOW Urine Clarity CLEAR Urine pH 6.0 Ur Specific [place] 1.025 Urine Protein NEGATIVE Urine Glucose (UA) NEGATIVE Urine Ketones NEGATIVE Urine Occult Blood NEGATIVE Urine Nitrite NEGATIVE Urine Bilirubin NEGATIVE Urine Urobilinogen 0.2 (NORMAL) Ur Leukocyte Esterase NEGATIVE Ur Microscopic Review NOT INDICATED Urine Culture Comments NOT INDICATED - Rads (name of study) CT ab/pel without Radiology: Prelim report reviewed (Impression: 1. No nephrolithiasis or hydronephrosis. Cholecystectomy. Marked degenerative disc disease at L5-S1 no radiographic explanation for this lady's presenting symptoms.), EMP read indepedently, See rad report Procedures - Bedside sono Bedside sono by EMP: With use of bedside ultrasound the left kidney is imaged it is sonographically nontender and there is mild hydronephrosis. PD MEDICAL DECISION MAKING - ED course Complexity details: reviewed old records, reviewed results, re-evaluated patient, considered differential, d/w patient ED course: 43-year-old female with acute left flank pain nonmodifiable has some mild hydronephrosis on bedside examination and a CT scan of the abdomen pelvis is obtained while she is administered saline and Dilaudid. Patient has excellent pain relief with the use of the Dilaudid and the CT examination shows no evidence of hydronephrosis or stone. This was done late in the patient visit there is a possibility she has passed the stone I am more dubious of this and it does seem that it is more likely she has had muscular skeletal pain. On further questioning the patient does admit that she has been sleeping on a heating pack. I have asked her to stop sleeping on a heating pack use ice and stretch and we have provided some pain medication. Departure - Departure Disposition: Home, Self Care Clinical Impression: Flank pain, acute Condition: Stable Instructions: ED Flank Pain Uncertain Cause Follow-Up: Mel Nieves DO [Primary Care Provider] - Prescriptions: Hydrocodone/Acetaminophen [Hydrocodon-Acetaminophen 5-325] 1 - 2 each PO Q6H PRN #14 tablet PRN Reason: pain
[2018-10-11] MEDS ORDERED: HYDROmorphone 1 MG/ML CARPUJECT IVP STA (16:06)
[2018-10-11] MEDS ORDERED: ONDANSETRON 4 MG/2 ML VIAL IVP STA (16:06)
[2018-10-11] MEDS ORDERED: SODIUM CHLORIDE 0.9% 1,000 ML IV ONE (16:06)
[2018-10-11 16:39] LABS: BILIRUBIN,URINE NEGATIVE (NEGATIVE); GLUCOSE, URINE (UA) NEGATIVE (NEGATIVE); KETONES,URINE (UA) NEGATIVE (NEGATIVE); LEUKOCYTE ESTERASE, URINE NEGATIVE (NEGATIVE); NITRITE,URINE NEGATIVE (NEGATIVE); OCCULT BLOOD,URINE NEGATIVE (NEGATIVE); PROTEIN,URINE NEGATIVE (NEGATIVE); UROBILINOGEN,URINE 0.2 (NORMAL) E.U./dL (NORMAL)
[2018-10-11 16:40] LABS: BASOPHILS % (AUTO) 0.7 %; EOSINOPHILS % (AUTO) 0.8 %; HGB - HEMOGLOBIN 13.5 g/dL (12.0-16.0); LYMPHOCYTES # (AUTO) 2.7 10^3/uL (1.5-3.5); LYMPHOCYTES % (AUTO) 43.2 %; MEAN CORPUSCULAR HEMOGLOBIN 31.2 pg (27.0-31.0); MEAN CORPUSCULAR HGB CONC 33.5 g/dL (32.0-36.0); MEAN CORPUSCULAR VOLUME 93.3 fL (81.0-99.0); MEAN PLATELET VOLUME 8.5 fL (7.9-10.8); MONOCYTES # (AUTO) 0.4 10^3/uL (0.0-1.0); NEUTROPHILS # (AUTO) 3.1 10^3/uL (1.5-6.6); NEUTROPHILS % (AUTO) 48.3 %; PLT - PLATELET COUNT 226 10^3/uL (130-450); RED BLOOD COUNT 4.32 10^6/uL (4.20-5.40); RED CELL DISTRIBUTION WIDTH 12.8 % (12.0-15.0); WHITE BLOOD COUNT 6.3 x10^3/uL (4.8-10.8)
[2018-10-11 16:42] LABS: CLARITY,URINE CLEAR (CLEAR)
[2018-10-11 16:54] LABS: ALBUMIN 4.2 g/dL (3.2-5.5); ALBUMIN/GLOBULIN RATIO 1.5 (1.0-2.2); BILIRUBIN,TOTAL 0.6 mg/dL (0.2-1.0); CALCIUM 9.1 mg/dL (8.5-10.3); CREATININE 0.6 mg/dL (0.4-1.0)
[2018-10-11 17:08] VITALS: BP 134/79
--- NOTE | 2018-10-11 18:11 | CT Report ---
Reason: left flank pain Procedure Date: 10/11/2018 Accession Number: [id number] / [id number] Procedure: CT - Abdomen/Pelvis WO CPT Code: FULL RESULT: EXAM: CT ABDOMEN AND PELVIS EXAM DATE: 10/11/2018 05:45 PM. CLINICAL HISTORY: Nephrolithiasis. Left flank pain. COMPARISONS: ABDOMEN/PELVIS W/O 01/25/2017 1:52 PM. TECHNIQUE: Routine helical CT imaging was performed through the abdomen and pelvis. IV contrast: None. Enteric contrast: No. Reconstructions: Coronal and sagittal. In accordance with CT protocol optimization, one or more of the following dose reduction techniques were utilized for this exam: automated exposure control, adjustment of mA and/or KV based on patient size, or use of iterative reconstructive technique. FINDINGS: Lung Bases: Unremarkable. Liver: Normal. No masses. Gallbladder/Bile Ducts: Cholecystectomy. No biliary duct dilatation. Several left-sided intra-abdominal "dropped" clips from prior surgery. Spleen: Normal. Pancreas: Normal. Adrenal Glands: Normal. Kidneys: Normal kidneys and ureters. No confident visualization of a tiny right intrarenal stone as previously described. Peritoneal Cavity/Bowel: No diverticula off the colon evident at this time. No free fluid, free air or adenopathy. No masses or acute inflammatory process. The appendix is well visualized and normal. Pelvic Organs: Normal. The bladder and visualized pelvic organs are within normal limits. Vasculature: No aneurysms or other significant abnormality. Bones: Marked degenerative disk disease at L5-S1. Other: None. IMPRESSION: 1. No nephrolithiasis nor hydronephrosis. 2. Cholecystectomy. 3. Marked degenerative disk disease at L5-S1. 4. No radiographic explanation for this lady's presenting symptoms. RADIA
== END 2018-10-11 18:36 | disposition home or self-care (01) ==
LOC: ED 15:33
DX: R10.12 Left upper quadrant pain (principal); M54.9 Dorsalgia, unspecified; N13.30 Unspecified hydronephrosis; M51.37 Other intervertebral disc degeneration, lumbosacral region; K21.9 Gastro-esophageal reflux disease without esophagitis; Z87.442 Personal history of urinary calculi; Z90.49 Acquired absence of other specified parts of digestive tract
CPT/HCPCS: 36415; 74176; 80053; 81003; 83690; 84484; 85025; 96361; 96374; 99283; J1170; 81001; 87086

== ENCOUNTER 2018-12-26 14:17 | Emergency (ER) | payer MEDICAID ==
[2018-12-26 15:05] LABS: BILIRUBIN,URINE NEGATIVE (NEGATIVE); GLUCOSE, URINE (UA) NEGATIVE (NEGATIVE); KETONES,URINE (UA) NEGATIVE (NEGATIVE); LEUKOCYTE ESTERASE, URINE NEGATIVE (NEGATIVE); NITRITE,URINE NEGATIVE (NEGATIVE); OCCULT BLOOD,URINE NEGATIVE (NEGATIVE); PROTEIN,URINE NEGATIVE (NEGATIVE); UROBILINOGEN,URINE 0.2 (NORMAL) E.U./dL (NORMAL)
[2018-12-26 15:07] LABS: CLARITY,URINE CLEAR (CLEAR)
--- NOTE | 2018-12-26 15:18 | ED Physician Documentation ---
PD HPI ABD PAIN - Stated complaint Stated Complaint: SIDE PX/NAUSEA - Chief complaint Chief Complaint: Abd Pain - History obtained from History obtained from: Patient - History of Present Illness Timing - onset: Other (Had vomiting and flank pain starting 2 days ago. Yesterday feeling weak with increased abd pain. The abd pain is in RLQ and epigastric and intermittent. Flank pain is more constant, throbbing and bilateral. Tylenol without relief. No constipation or uninary complaints.) Review of Systems Ten Systems: 10 systems reviewed and negative Constitutional: denies: Fever, Chills Cardiac: denies: Chest pain / pressure Respiratory: denies: Dyspnea, Cough GI: reports: Abdominal Pain, Nausea, Vomiting. 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 - Present Medications Home Medications: Ambulatory Orders Medication Instructions Recorded Confirmed Estradiol 1 mg PO DAILY 11/17/16 12/26/18 DULoxetine [Cymbalta] 2 tab PO DAILY 08/10/18 12/26/18 Dicyclomine [Bentyl] 20 mg PO QID PRN #15 capsule 12/26/18 Oxycodone HCl/Acetaminophen 1 - 2 each PO Q6H PRN #14 tablet 12/26/18 [Percocet 5-325 mg Tablet] - Allergies Allergies/Adverse Reactions: Allergies Allergy/AdvReac Type Severity Reaction Status Date / Time No Known Drug Allergies Allergy Verified 08/10/18 11:12 - Social History Does the pt smoke?: No Smoking Status: Never smoker Does the pt drink ETOH?: No Does the pt have substance abuse?: No - Family History Family history: reports: Non contributory - Immunizations Immunizations are current?: Yes - POLST Patient has POLST: No PD ED PE NORMAL - Vitals Vital signs reviewed: Yes - General General: Alert and oriented X 3, No acute distress - HEENT HEENT: PERRL, EOMI - Neck Neck: Supple, no meningeal sign, No bony TTP - Cardiac Cardiac: RRR, No murmur - Respiratory Respiratory: No respiratory distress, Clear bilaterally - Abdomen Abdomen: Other (Mild TTP RLQ and B CVAs, NO G/R/M) - Back Back: No spinal TTP - Derm Derm: Normal color, Warm and dry - Extremities Extremities: No edema, No calf tenderness / cord - 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, Normal speech Results - Vitals Vitals: Vital Signs - 24 hr 12/26/18 12/26/18 14:24 15:15 Temperature 36.1 C L Heart Rate 92 77 Respiratory 16 15 Rate Blood Pressure 142/91 H 140/89 H O2 Saturation 99 98 Oxygen O2 Source Room air - Labs Labs: Laboratory Tests 12/26/18 12/26/18 12/26/18 14:44 15:14 15:14 WBC 6.7 RBC 4.04 L Hgb 12.5 Hct 38.1 MCV 94.3 MCH 30.9 MCHC 32.8 RDW 12.6 Plt Count 240 MPV 10.2 Neut # (Auto) 3.7 Lymph # (Auto) 2.5 [place] # (Auto) 0.4 Eos # (Auto) 0.1 Baso # (Auto) 0.0 Absolute Nucleated RBC 0.00 Nucleated RBC % 0.0 Sodium 139 Potassium 3.8 Chloride 100 L Carbon Dioxide 26 Anion Gap 13.0 BUN 19 Creatinine 0.7 Estimated GFR (MDRD) 91 Glucose 103 H Calcium 9.4 Total Bilirubin 0.5 AST 19 ALT 20 Alkaline Phosphatase 68 Total Protein 7.5 Albumin 4.5 Globulin 3.0 Albumin/Globulin Ratio 1.5 Lipase 31 Urine Color YELLOW Urine Clarity CLEAR Urine pH 6.0 Ur Specific [place] 1.025 Urine Protein NEGATIVE Urine Glucose (UA) NEGATIVE Urine Ketones NEGATIVE Urine Occult Blood NEGATIVE Urine Nitrite NEGATIVE Urine Bilirubin NEGATIVE Urine Urobilinogen 0.2 (NORMAL) Ur Leukocyte Esterase NEGATIVE Ur Microscopic Review NOT INDICATED Urine Culture Comments NOT INDICATED - Rads (name of study) CT A/P Radiology: EMP read contemporaneously (normal) PD MEDICAL DECISION MAKING - ED course ED course: 43-year-old woman with seemingly chronic recurrent abdominal pain. Somewhat different today with a right lower quadrant component. As such CT imaging was done without relevant positive findings. Recommended follow-up with GI for further evaluation and treatment. Departure - Departure Disposition: 01 Home, Self Care Clinical Impression: Abdominal pain Qualifiers: Abdominal location: generalized Qualified Code(s): R10.84 - Generalized abdominal pain Condition: Good Record reviewed to determine appropriate education?: Yes Instructions: Abdominal Pain Follow-Up: Johnathon Colon MD [Provider Admit Priv/Credential] - Prescriptions: Dicyclomine [Bentyl] 20 mg PO QID PRN #15 capsule PRN Reason: Abdominal Pain Oxycodone HCl/Acetaminophen [Percocet 5-325 mg Tablet] 1 - 2 each PO Q6H PRN #14 tablet PRN Reason: pain Comments: Call your doctor to arrange a follow-up appointment, make the next available appointment. In the interim, return anytime if worse or if new symptoms develop. Do not drink or drive while taking narcotic pain medication. Note that many narcotic pain relievers also contain Tylenol/acetaminophen. Please ensure that your total dose of acetaminophen from all sources does not exceed 3 g (3000 mg) per day. You may get constipated while on this medication. Take a stool softener such as Colace twice a day while you are on it. Also add an [id number] laxative such as senna or MiraLAX on any day that you do not have a bowel movement. If you received a narcotic pain medication or sedative while in the emergency department, do not drive for the next 24 hours. Your blood pressure was elevated today on check into the emergency department. This does not mean that you have hypertension, it is a common phenomenon to come to the emergency department and have elevated blood pressure. I recommend that you see your primary care physician within the week to have it rechecked when you are feeling better. Forms: Activity restrictions
[2018-12-26 15:19] LABS: BASOPHILS % (AUTO) 0.3 %; EOSINOPHILS # (AUTO) 0.1 10^3/uL (0.0-0.7); EOSINOPHILS % (AUTO) 0.9 %; HGB - HEMOGLOBIN 12.5 g/dL (12.0-16.0); LYMPHOCYTES # (AUTO) 2.5 10^3/uL (1.5-3.5); LYMPHOCYTES % (AUTO) 37.2 %; MEAN CORPUSCULAR HEMOGLOBIN 30.9 pg (27.0-31.0); MEAN CORPUSCULAR HGB CONC 32.8 g/dL (32.0-36.0); MEAN CORPUSCULAR VOLUME 94.3 fL (81.0-99.0); MEAN PLATELET VOLUME 10.2 fL (7.9-10.8); MONOCYTES # (AUTO) 0.4 10^3/uL (0.0-1.0); MONOCYTES % (AUTO) 6.4 %; NEUTROPHILS # (AUTO) 3.7 10^3/uL (1.5-6.6); NEUTROPHILS % (AUTO) 55.1 %; PLT - PLATELET COUNT 240 10^3/uL (130-450); RED BLOOD COUNT 4.04 10^6/uL (4.20-5.40); RED CELL DISTRIBUTION WIDTH 12.6 % (12.0-15.0); WHITE BLOOD COUNT 6.7 x10^3/uL (4.8-10.8)
[2018-12-26] MEDS ORDERED: MORPHINE 2 MG/ML CARPUJECT IVP STA (15:20)
[2018-12-26] MEDS ORDERED: ONDANSETRON 4 MG/2 ML VIAL IVP STA (15:20)
[2018-12-26] MEDS ORDERED: IOVERSOL 320 100 ML VIAL IVP ONE ×2 (15:30→15:52)
[2018-12-26 15:37] LABS: ALBUMIN 4.5 g/dL (3.2-5.5); ALBUMIN/GLOBULIN RATIO 1.5 (1.0-2.2); BILIRUBIN,TOTAL 0.5 mg/dL (0.2-1.0); CALCIUM 9.4 mg/dL (8.5-10.3); CREATININE 0.7 mg/dL (0.4-1.0); TOTAL PROTEIN 7.5 g/dL (6.7-8.2)
--- NOTE | 2018-12-26 16:21 | CT Report ---
Reason: IV only, RLQ pain Procedure Date: 12/26/2018 Accession Number: [id number] / [id number] Procedure: CT - Abdomen/Pelvis W CPT Code: FULL RESULT: EXAM: CT ABDOMEN AND PELVIS WITH IV CONTRAST EXAM DATE: 12/26/2018 03:51 PM. CLINICAL HISTORY: Right lower quadrant pain. Status post hysterectomy and cholecystectomy. COMPARISONS: ABDOMEN/PELVIS W/ 11/16/2016 1:39 PM. ABDOMEN/PELVIS W/O 10/11/2018 5:32 PM. TECHNIQUE: Routine helical CT imaging was performed through the abdomen and pelvis. IV contrast: Opti 320, 100 mL. Enteric contrast: No. Reconstructions: Coronal and sagittal. In accordance with CT protocol optimization, one or more of the following dose reduction techniques were utilized for this exam: automated exposure control, adjustment of mA and/or KV based on patient size, or use of iterative reconstructive technique. FINDINGS: Lung Bases: No acute findings. Liver: Normal. No masses. Gallbladder/Bile Ducts: Status post cholecystectomy. No bile duct dilatation. Spleen: Normal. Pancreas: Normal. Adrenal Glands: Normal. Kidneys: Small left anterior midpole renal cyst again noted, measures 1 cm. No hydronephrosis. Peritoneal Cavity/Bowel: Normal. No free fluid, free air or adenopathy. No masses or acute inflammatory process. Normal appendix. Pelvic Organs: Bladder appears unremarkable. Status post hysterectomy. Vasculature: No aneurysms or other significant abnormality. Bones: No acute bone findings. Severe L5-S1 degenerative disk disease with minimal anterolisthesis. IMPRESSION: 1. Normal appendix. 2. No acute findings are seen. 3. See above. RADIA
[2018-12-26 16:32] VITALS: BP 135/80
== END 2018-12-26 16:40 | disposition home or self-care (01) ==
LOC: ED 14:17
DX: R10.84 Generalized abdominal pain (principal); R03.0 Elevated blood-pressure reading, without diagnosis of hypertension
CPT/HCPCS: 36415; 74177; 80053; 81003; 83690; 85025; 96374; 96375; 99284; Q9967; 81001; 87086

== ENCOUNTER 2019-02-02 07:20 | Emergency (ER) | payer MEDICAID ==
--- NOTE | 2019-02-02 07:27 | ED Physician Documentation ---
PD HPI CHEST PAIN - Stated complaint Stated Complaint: CHEST PX,SOB - History obtained from History obtained from: Patient - History of Present Illness Timing - onset: How many hours ago (1), Today Timing - onset during: Exertion (she was walking on treadmill and felt onset of chest pressure and dyspnea. She exercises similarly 3-4 times per week and had not had similar symptoms recently.) Timing - duration: Hours (1 hour with symptoms still.) Timing - details: Abrupt onset, Still present Quality: Pressure, Tightness. No: Sharp, Tearing, Pain Location: Substernal, Left chest Radiation: Jaw. No: Back Improved by: No: Rest Worsened by: No: Exertion (no change with walking, but has not exerted per se since the onset of symptoms this morning.), Inspiration, Movement Associated symptoms: Shortness of air, General Weakness. No: Nausea, Feeling faint / dizzy, Palpitations Similar symptoms before: No diagnosis (chest pain episodes in the past with negative workup in ER.) Recently seen: Not recently seen Review of Systems Constitutional: denies: Fever, Chills Nose: denies: Rhinorrhea / runny nose, Congestion Throat: denies: Sore throat Cardiac: reports: Chest pain / pressure. denies: Palpitations, Pedal edema, Calf pain Respiratory: reports: Dyspnea. denies: Cough, Wheezing GI: denies: Abdominal Pain, Nausea, Vomiting Musculoskeletal: denies: Extremity swelling Neurologic: reports: Generalized weakness. 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 - Present Medications Home Medications: Ambulatory Orders Medication Instructions Recorded Confirmed Estradiol 1 mg PO DAILY 11/17/16 12/26/18 DULoxetine [Cymbalta] 2 tab PO DAILY 08/10/18 12/26/18 Dicyclomine [Bentyl] 20 mg PO QID PRN #15 capsule 12/26/18 Oxycodone HCl/Acetaminophen 1 - 2 each PO Q6H PRN #14 tablet 12/26/18 [Percocet 5-325 mg Tablet] Hydrocodone/Acetaminophen [[place] 1 each PO Q6H PRN #15 tablet 02/02/19 5-325 Tablet] Naproxen 500 mg PO BID #20 tablet 02/02/19 - Allergies Allergies/Adverse Reactions: Allergies Allergy/AdvReac Type Severity Reaction Status Date / Time No Known Drug Allergies Allergy Verified 02/02/19 07:37 - Social History Does the pt smoke?: No Smoking Status: Never smoker Does the pt drink ETOH?: No Does the pt have substance abuse?: No - Immunizations Immunizations are current?: Yes - POLST Patient has POLST: No PD ED PE NORMAL - Vitals Vital signs reviewed: Yes - General General: Alert and oriented X 3, Well developed/nourished, Other (seems anxious. Not appearing in pain per se. ) - HEENT HEENT: Pharynx benign - Neck Neck: Supple, no meningeal sign, No adenopathy - Cardiac Cardiac: RRR, No murmur - Respiratory Respiratory: Clear bilaterally, Other (no chestwall tenderness) - Abdomen Abdomen: Soft, Non tender - Back Back: No CVA TTP - Derm Derm: Normal color, Warm and dry - Extremities Extremities: No tenderness to palpate, Normal ROM s pain, No edema, No calf tenderness / cord - 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, No motor deficit, No sensory deficit, Normal speech Results - Vitals Vitals: Vital Signs - 24 hr 02/02/19 02/02/19 02/02/19 07:33 08:01 08:06 Temperature 36.8 C Heart Rate 91 75 83 Respiratory 28 H 30 H 19 Rate Blood Pressure 129/87 H 126/72 113/75 O2 Saturation 100 98 94 02/02/19 02/02/19 02/02/19 08:28 09:04 09:26 Temperature Heart Rate 69 67 83 Respiratory 24 19 Rate Blood Pressure 123/73 110/70 115/75 O2 Saturation 96 93 96 Oxygen O2 Source Room air - EKG (time done) 07:26 Rate: Rate (enter#) (81) Rhythm: NSR [place]: Normal Intervals: Normal ID QRS: Normal Ischemia: Normal ST segments. No: ST elevation c/w ischemia, ST depression - Labs Labs: Laboratory Tests 02/02/19 02/02/19 02/02/19 07:56 07:56 07:56 WBC 4.4 L RBC 3.88 L Hgb 12.3 Hct 36.8 L MCV 94.8 MCH 31.7 H MCHC 33.4 RDW 12.8 Plt Count 231 MPV 9.7 Neut # (Auto) 2.2 Lymph # (Auto) 1.7 [place] # (Auto) 0.4 Eos # (Auto) 0.1 Baso # (Auto) 0.0 Absolute Nucleated RBC 0.00 Nucleated RBC % 0.0 D-Dimer 225.5 Sodium 138 Potassium 4.5 Chloride 103 Carbon Dioxide 26 Anion Gap 9.0 BUN 13 Creatinine 0.8 Estimated GFR (MDRD) 78 L Glucose 111 H Calcium 9.0 Magnesium 2.1 Total Bilirubin 0.5 AST 26 ALT 19 Alkaline Phosphatase 56 Troponin I High Sens B-Natriuretic Peptide Total Protein 6.7 Albumin 3.5 Globulin 3.2 Albumin/Globulin Ratio 1.1 Lipase 23 02/02/19 02/02/19 07:56 07:56 WBC RBC Hgb Hct MCV MCH MCHC RDW Plt Count MPV Neut # (Auto) Lymph # (Auto) [place] # (Auto) Eos # (Auto) Baso # (Auto) Absolute Nucleated RBC Nucleated RBC % D-Dimer Sodium Potassium Chloride Carbon Dioxide Anion Gap BUN Creatinine Estimated GFR (MDRD) Glucose Calcium Magnesium Total Bilirubin AST ALT Alkaline Phosphatase Troponin I High Sens 2.9 B-Natriuretic Peptide 45 Total Protein Albumin Globulin Albumin/Globulin Ratio Lipase - Rads (name of study) chest xray Radiology: Prelim report reviewed (no acute process), See rad report PD MEDICAL DECISION MAKING - ED course Complexity details: reviewed results, re-evaluated patient (no change with NTG nor mylanta. Pressure relieved with Morphine and Ativan. ), considered differential, d/w patient Departure - Departure Disposition: Home, Self Care Clinical Impression: Chest pressure Clinical Impression: (Ruled Out): Myocardial infarction Condition: Stable Record reviewed to determine appropriate education?: Yes Instructions: ED Chest Pain Atypical Unkn Cause Follow-Up: Mel Nieves DO [Primary Care Provider] - Prescriptions: Hydrocodone/Acetaminophen [[place] 5-325 Tablet] 1 each PO Q6H PRN #15 tablet PRN Reason: Pain Naproxen 500 mg PO BID #20 tablet Comments: There are no signs of serious causes for your pain and pressure based on the test today. Presume its musculoskeletal. Might have you use some anti- inflammatories such as ibuprofen or naproxen twice daily for the next week. To this add Tylenol or hydrocodone if needed for pain. Off work today. Recheck if not improving well over the next several days and return sooner if worsening. Forms: Activity restrictions Discharge Date/Time: 02/02/19 09:38
[2019-02-02] MEDS ORDERED: NITROGLYCERIN SL 0.4 MG TABLET SL STA (07:46)
[2019-02-02] MEDS ORDERED: KETOROLAC 15 MG/ML VIAL IVP STA (07:46)
[2019-02-02] MEDS ORDERED: MAG HYDROX/AL HYDROX/SIMETH 30 ML UDC PO STA (07:46)
[2019-02-02 08:07] LABS: BASOPHILS % (AUTO) 0.5 %; EOSINOPHILS # (AUTO) 0.1 10^3/uL (0.0-0.7); EOSINOPHILS % (AUTO) 1.6 %; HGB - HEMOGLOBIN 12.3 g/dL (12.0-16.0); LYMPHOCYTES # (AUTO) 1.7 10^3/uL (1.5-3.5); LYMPHOCYTES % (AUTO) 38.3 %; MEAN CORPUSCULAR HEMOGLOBIN 31.7 pg (27.0-31.0); MEAN CORPUSCULAR HGB CONC 33.4 g/dL (32.0-36.0); MEAN CORPUSCULAR VOLUME 94.8 fL (81.0-99.0); MEAN PLATELET VOLUME 9.7 fL (7.9-10.8); MONOCYTES # (AUTO) 0.4 10^3/uL (0.0-1.0); MONOCYTES % (AUTO) 9.1 %; NEUTROPHILS # (AUTO) 2.2 10^3/uL (1.5-6.6); NEUTROPHILS % (AUTO) 50.3 %; PLT - PLATELET COUNT 231 10^3/uL (130-450); RED BLOOD COUNT 3.88 10^6/uL (4.20-5.40); RED CELL DISTRIBUTION WIDTH 12.8 % (12.0-15.0); WHITE BLOOD COUNT 4.4 x10^3/uL (4.8-10.8)
[2019-02-02 08:34] LABS: ALBUMIN 3.5 g/dL (3.2-5.5); ALBUMIN/GLOBULIN RATIO 1.1 (1.0-2.2); BILIRUBIN,TOTAL 0.5 mg/dL (0.2-1.0); CREATININE 0.8 mg/dL (0.4-1.0); MAGNESIUM 2.1 mg/dL (1.7-2.8); TOTAL PROTEIN 6.7 g/dL (6.7-8.2)
[2019-02-02] MEDS ORDERED: LORazepam 2 MG/ML VIAL IVP STA (08:36)
[2019-02-02] MEDS ORDERED: MORPHINE 10 MG/ML VIAL IVP STA ×2 (08:36→08:59)
--- NOTE | 2019-02-02 08:41 | XRAY Report ---
Reason: dyspnea/ chest pressure Procedure Date: 02/02/2019 Accession Number: [id number] / [id number] Procedure: XR - Chest 2 View X-Ray CPT Code: 49778 FULL RESULT: EXAM: CHEST RADIOGRAPHY EXAM DATE: 02/02/2019 08:20 AM. CLINICAL HISTORY: Dyspnea/ chest pressure. COMPARISON: CHEST 1 VIEW 08/10/2018 11:45 AM. TECHNIQUE: 2 views. FINDINGS: Lungs/Pleura: No focal opacities evident. No peribronchial cuffing or interstitial abnormality. No pleural effusion. No pneumothorax. Normal volumes. Mediastinum: Heart and mediastinal contours are unremarkable. Other: Anterior plate and screws in the lower cervical spine IMPRESSION: Normal 2-view chest radiography. RADIA
[2019-02-02 09:27] VITALS: BP 115/75
== END 2019-02-02 09:38 | disposition home or self-care (01) ==
LOC: ED 07:20
DX: R07.89 Other chest pain (principal)
CPT/HCPCS: 36415; 71046; 80053; 83690; 83735; 83880; 84484; 85025; 85379; 93005; 96374; 96375; 99284; A9270; J2060

== ENCOUNTER 2019-02-06 13:49 | Emergency (ER) | payer MEDICAID ==
[2019-02-06] MEDS ORDERED: LORazepam 1 MG TABLET PO STA (14:17)
[2019-02-06 14:34] LABS: BASOPHILS % (AUTO) 0.3 %; EOSINOPHILS # (AUTO) 0.1 10^3/uL (0.0-0.7); EOSINOPHILS % (AUTO) 0.7 %; HGB - HEMOGLOBIN 14.2 g/dL (12.0-16.0); LYMPHOCYTES # (AUTO) 2.3 10^3/uL (1.5-3.5); LYMPHOCYTES % (AUTO) 30.5 %; MEAN CORPUSCULAR HEMOGLOBIN 31.8 pg (27.0-31.0); MEAN CORPUSCULAR VOLUME 93.7 fL (81.0-99.0); MEAN PLATELET VOLUME 9.7 fL (7.9-10.8); MONOCYTES # (AUTO) 0.5 10^3/uL (0.0-1.0); NEUTROPHILS # (AUTO) 4.7 10^3/uL (1.5-6.6); NEUTROPHILS % (AUTO) 62.2 %; PLT - PLATELET COUNT 293 10^3/uL (130-450); RED BLOOD COUNT 4.46 10^6/uL (4.20-5.40); RED CELL DISTRIBUTION WIDTH 12.7 % (12.0-15.0); WHITE BLOOD COUNT 7.5 x10^3/uL (4.8-10.8)
[2019-02-06] MEDS ORDERED: ONDANSETRON ODT 4 MG TABLET TL STA (14:34)
--- NOTE | 2019-02-06 14:35 | ED Physician Documentation ---
History of Present Illness - Stated complaint Stated Complaint: SOA,SHAKY,BODY ACHES - Chief complaint Chief Complaint: Resp - Additonal information Additional information: This is a 43-year-old female with a history of depression, anxiety, who presents with shakiness, bloating, and feeling that her heart is racing, and shortness of breath. Patient presented last week for similar symptoms with chest pain and shortness of breath, that time she had a negative high-sensitivity troponin, negative d-dimer, and negative BNP. Her chest x-ray was unremarkable. She was discharged home with PCP follow-up. She states that since that time her symptoms have persisted, she has had intermittent feelings of her heart racing dyspnea. The abdominal bloating has increased. She continues to have bowel movements and is able to eat. No vomiting. She denies any hemoptysis, fever, or leg swelling. 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, 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 - Present Medications Home Medications: Ambulatory Orders Medication Instructions Recorded Confirmed RX: Estradiol 1 mg PO DAILY 11/17/16 12/26/18 DULoxetine [Cymbalta] 2 tab PO DAILY 08/10/18 12/26/18 Oxycodone HCl/Acetaminophen 1 - 2 each PO Q6H PRN #14 tablet 12/26/18 [Percocet 5-325 mg Tablet] RX: Dicyclomine [Bentyl] 20 mg PO QID PRN #15 capsule 12/26/18 Hydrocodone/Acetaminophen [[place] 1 each PO Q6H PRN #15 tablet 02/02/19 5-325 Tablet] RX: Naproxen 500 mg PO BID #20 tablet 02/02/19 - Allergies Allergies/Adverse Reactions: Allergies Allergy/AdvReac Type Severity Reaction Status Date / Time No Known Drug Allergies Allergy Verified 02/06/19 13:59 - Social History Does the pt smoke?: No Smoking Status: Never smoker Does the pt drink ETOH?: No Does the pt have substance abuse?: No - Immunizations Immunizations are current?: Yes - POLST Patient has POLST: No PD ED PE NORMAL - Vitals Vital signs reviewed: Yes - General General: Alert and oriented X 3 - HEENT HEENT: Atraumatic, PERRL - Neck Neck: Supple, no meningeal sign - Cardiac Cardiac: Other (HR in low 100s, regular rhythm, no murmur.) - Respiratory Respiratory: No respiratory distress, Clear bilaterally - Abdomen Abdomen: Normal bowel sounds, Soft, Other (Rotund, mild epigastric tenderness.) - Derm Derm: Warm and dry - Extremities Extremities: No deformity - 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 - Psych Psych: Normal mood, Normal affect Results - Vitals Vitals: Vital Signs - 24 hr 02/06/19 02/06/19 02/06/19 13:55 14:16 16:00 Temperature 36.4 C L 36.4 C L Heart Rate 124 H 105 H 99 Respiratory 19 22 22 Rate Blood Pressure 140/123 H 128/80 116/77 O2 Saturation 97 97 97 Oxygen O2 Source Room air - EKG (time done) 14:32 Other comments: Other comments (Rate 103, rhythm sinus tachycardia, there is no ST segment elevation or depression, no abnormal T wave in versions. Motion artifact obscures detailed evaluation of lead 3 and aVL. Intervals are within normal limits) - Labs Labs: Laboratory Tests 02/06/19 02/06/19 02/06/19 09:36 09:36 14:29 WBC 7.5 RBC 4.46 Hgb 14.2 Hct 41.8 MCV 93.7 MCH 31.8 H MCHC 34.0 RDW 12.7 Plt Count 293 MPV 9.7 Neut # (Auto) 4.7 Lymph # (Auto) 2.3 [place] # (Auto) 0.5 Eos # (Auto) 0.1 Baso # (Auto) 0.0 Absolute Nucleated RBC 0.00 Nucleated RBC % 0.0 Sodium 137 Potassium 4.4 Chloride 99 L Carbon Dioxide 26 Anion Gap 12.0 BUN 17 Creatinine 0.8 Estimated GFR (MDRD) 78 L Glucose 122 H Calcium 9.6 Total Bilirubin 0.7 AST 37 ALT 36 Alkaline Phosphatase 59 Total Protein 8.0 Albumin 4.6 Globulin 3.4 Albumin/Globulin Ratio 1.4 Lipase 23 TSH 1.10 Free T4 0.68 PD MEDICAL DECISION MAKING - ED course Complexity details: considered differential (Anemia, electrolyte abnormality hyperthyroidism/thyroid disturbance, ACS, pneumothorax, musculoskeletal pain, gastritis/PUD, PE) ED course: On initial exam patient is tachycardic to the 110s, but she is well-appearing with normal oxygen saturation. Labs are drawn, patient was placed on the monitor. She appeared quite anxious and endorsed anxiety so she was given 1 mg of Ativan which improved her symptoms somewhat, and her heart rate dropped to the 90s. She was also given Zofran, and her nausea improved. EKG showed no convincing signs of ischemia or dysrhythmia. CBC and CMP unremarkable. Given her reassuring EKG, and her negative recent high-sensitivity troponin, I have a low suspicion for ACS. She also had a negative d-dimer, negative chest x-ray on a recent visit for these symptoms, And given her reassuring exam I do not think that repeating these tests today will be revealing. On repeat examination patient continues a well-appearing with a benign abdominal examination, she has some mild epigastric tenderness so she was given a GI cocktail with minimal relief of her symptoms. She has a cholecystectomy and normal LFTs, I highly doubt biliary pathology. Her nausea and palpitations have improved, she has no chest pain, her heart rate is in the low 90s, oxygen saturation is normal, and she is overall feeling better. I discussed with her I do not see a clear cause of her symptoms, and I recommended she follow closely with her primary care provider. I also discussed that if she develops any chest pain, recurrent shortness of breath, syncope, hemoptysis, fever or leg swelling or other concerning symptoms she should return to the emergency department. Patient agreed to this plan and was discharged home. Departure - Departure Disposition: 01 Home, Self Care Clinical Impression: Palpitations Condition: Good Instructions: ED Palpitations Follow-Up: Mel Nieves DO [Primary Care Provider] - Within 1 week Comments: Your labs and EKG today do not reveal an obvious cause of your symptoms. Please follow up as soon as possible with your PCP. If you are having new or worsening abdominal pain, chest pain, blood in your sputum, fainting, persistent vomiting, or any other concerning symptoms, please return to the emergency department. Discharge Date/Time: 02/06/19 16:03
[2019-02-06 14:46] LABS: ALBUMIN 4.6 g/dL (3.2-5.5); ALBUMIN/GLOBULIN RATIO 1.4 (1.0-2.2); BILIRUBIN,TOTAL 0.7 mg/dL (0.2-1.0); CALCIUM 9.6 mg/dL (8.5-10.3); CREATININE 0.8 mg/dL (0.4-1.0)
[2019-02-06 15:05] LABS: THYROID STIMULATING HORMONE 1.1 uIU/mL (0.34-5.60)
[2019-02-06] MEDS ORDERED: MAG HYDROX/AL HYDROX/SIMETH 30 ML UDC PO STA (15:05)
[2019-02-06] MEDS ORDERED: LIDOCAINE VISCOUS 2% 15 ML UDC MM STA (15:05)
[2019-02-06 15:07] LABS: FREE T4 (FREE THYROXINE) 0.68 ng/dL (0.58-1.64)
[2019-02-06 16:01] VITALS: BP 116/77
== END 2019-02-06 16:03 | disposition home or self-care (01) ==
LOC: ED 13:49
DX: R00.0 Tachycardia, unspecified (principal); R11.0 Nausea; R10.13 Epigastric pain; F41.9 Anxiety disorder, unspecified
CPT/HCPCS: 36415; 80053; 83690; 84439; 84443; 85025; 93005; 99283; 99284; A9270; J8499; Q0162

== ENCOUNTER 2019-02-16 16:46 | Outpatient (CLI) | payer MEDICAID ==
--- NOTE | 2019-02-22 14:38 | Mammography Report ---
Reason: SCREENING MAMMO Procedure Date: 02/16/2019 Accession Number: [id number] / [id number] Procedure: NOEMI - Screening Mammo w/Baldemar CPT Code: FULL RESULT: EXAM: Screening Mammo w/Baldemar DATE: 02/16/2019 5:23 PM CLINICAL HISTORY: Routine screening TECHNIQUE: (B) - Bilateral CC and MLO views were obtained. COMPARISON: 05/21/2017, 04/07/16, 06/30/2015, 03/27/2015, 12/26/2014 and 11/21/2014 PARENCHYMAL PATTERN: (A) - The breasts demonstrate scattered fibroglandular densities bilaterally. FINDINGS: No significant interval change. There are no suspicious masses, calcifications, or areas of distortion. Left breast posterior nodule with associated biopsy clip unchanged. IMPRESSION: Negative examination. BI-RADS category 1. RECOMMENDATION: (ANNUAL) - Recommend routine annual screening mammography. BI-RADS CATEGORY: (1) - Negative. STANDARD QUALIFYING STATEMENTS: 1. This examination was not reviewed with the aid of Computer-Aided Detection (CAD). 2. A negative or benign imaging report should not preclude biopsy if clinically suspicious findings are present. 3. Dense breasts may obscure an underlying neoplasm. 4. This examination was reviewed with the aid of 3D breast imaging (tomosynthesis).
== END 2019-02-16 16:47 | disposition home or self-care (01) ==
LOC: DI 16:46
DX: Z12.31 Encounter for screening mammogram for malignant neoplasm of breast (principal)
CPT/HCPCS: 77063; 77067

== ENCOUNTER 2019-03-09 11:35 | Emergency (ER) | payer MEDICAID ==
[2019-03-09] MEDS ORDERED: MAG HYDROX/AL HYDROX/SIMETH 30 ML UDC PO STA (12:24)
[2019-03-09] MEDS ORDERED: LIDOCAINE VISCOUS 2% 15 ML UDC MM STA (12:24)
[2019-03-09 12:26] LABS: BASOPHILS % (AUTO) 0.2 %; EOSINOPHILS # (AUTO) 0.1 10^3/uL (0.0-0.7); EOSINOPHILS % (AUTO) 1.1 %; HGB - HEMOGLOBIN 12.8 g/dL (12.0-16.0); LYMPHOCYTES # (AUTO) 1.7 10^3/uL (1.5-3.5); MEAN CORPUSCULAR HEMOGLOBIN 31.6 pg (27.0-31.0); MEAN CORPUSCULAR HGB CONC 33.5 g/dL (32.0-36.0); MEAN CORPUSCULAR VOLUME 94.3 fL (81.0-99.0); MEAN PLATELET VOLUME 9.8 fL (7.9-10.8); MONOCYTES # (AUTO) 0.3 10^3/uL (0.0-1.0); NEUTROPHILS # (AUTO) 2.5 10^3/uL (1.5-6.6); NEUTROPHILS % (AUTO) 53.5 %; PLT - PLATELET COUNT 270 10^3/uL (130-450); RED BLOOD COUNT 4.05 10^6/uL (4.20-5.40); RED CELL DISTRIBUTION WIDTH 12.4 % (12.0-15.0); WHITE BLOOD COUNT 4.6 x10^3/uL (4.8-10.8)
--- NOTE | 2019-03-09 12:27 | ED Physician Documentation ---
PD HPI CHEST PAIN - Stated complaint Stated Complaint: CHEST PAIN, RAPID HR - Chief complaint Chief Complaint: Cardiac - History obtained from History obtained from: Patient - History of Present Illness Timing - onset: Today (For about 6 months now she is been having recurrent issues with chest pain and nausea. Last night she was not feeling well, she was nauseous and then she developed left-sided and substernal chest pain radiating to the left shoulder blade at 8 AM this morning. Its associated with shortness of breath, but not as much shortness of breath as she is had with similar episodes. Review of records show that she been here several times for similar symptoms without specific positive findings, cardiac enzymes, chest x-ray, D- dimers have been reliably been negative. She denies pedal edema or calf pain. No possibility of . She does not think she is anxious.) Review of Systems Ten Systems: 10 systems reviewed and negative Constitutional: denies: Fever, Chills, Fatigue, Weight Loss Ears: reports: Reviewed and negative Nose: reports: Reviewed and negative Throat: reports: Reviewed and negative PD PAST MEDICAL HISTORY - Past Medical History Cardiovascular: None Respiratory: None Neuro: None Endocrine/Autoimmune: HyPERthyroidism GI: GERD Psych: Depression, Anxiety Musculoskeletal: Chronic back pain, Other - Past Surgical History Past Surgical History: Yes General: Cholecystectomy 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, Rotator cuff repair, 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, 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 - Present Medications Home Medications: Ambulatory Orders Medication Instructions Recorded Confirmed Estradiol 1 mg PO DAILY 11/17/16 03/09/19 DULoxetine [Cymbalta] 2 tab PO DAILY 08/10/18 12/26/18 Bupropion HCl [Wellbutrin Xl] 300 mg PO 03/09/19 - Allergies Allergies/Adverse Reactions: Allergies Allergy/AdvReac Type Severity Reaction Status Date / Time No Known Drug Allergies Allergy Verified 03/09/19 11:50 - Social History Does the pt smoke?: No Smoking Status: Never smoker Does the pt drink ETOH?: No Does the pt have substance abuse?: No - Family History Family history: reports: Non contributory - Immunizations Immunizations are current?: Yes - POLST Patient has POLST: No PD ED PE NORMAL - Vitals Vital signs reviewed: Yes - General General: Alert and oriented X 3, No acute distress - HEENT HEENT: PERRL, EOMI - Neck Neck: Supple, no meningeal sign, No bony TTP - Cardiac Cardiac: RRR, No murmur - Respiratory Respiratory: No respiratory distress, Clear bilaterally - Abdomen Abdomen: Soft, Non tender - Back Back: No CVA TTP, No spinal TTP - Derm Derm: Normal color, Warm and dry - Extremities Extremities: No edema, No calf tenderness / cord - 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, Normal speech Results - Vitals Vitals: Vital Signs - 24 hr 03/09/19 03/09/19 03/09/19 11:39 12:02 12:35 Temperature 36.3 C L Heart Rate 90 87 78 Respiratory 18 18 19 Rate Blood Pressure 156/97 H 135/91 H 123/80 O2 Saturation 99 97 99 03/09/19 12:57 Temperature Heart Rate 83 Respiratory 22 Rate Blood Pressure 123/80 O2 Saturation 97 Oxygen O2 Source Room air - EKG (time done) 1140 Rate: Rate (enter#) (90) Rhythm: NSR [place]: Normal QRS: LVH Ischemia: Normal ST segments Computer interpretation: Agree with computer - Labs Labs: Laboratory Tests 03/09/19 03/09/19 03/09/19 12:16 12:16 12:16 WBC 4.6 L RBC 4.05 L Hgb 12.8 Hct 38.2 MCV 94.3 MCH 31.6 H MCHC 33.5 RDW 12.4 Plt Count 270 MPV 9.8 Neut # (Auto) 2.5 Lymph # (Auto) 1.7 [place] # (Auto) 0.3 Eos # (Auto) 0.1 Baso # (Auto) 0.0 Absolute Nucleated RBC 0.00 Nucleated RBC % 0.0 D-Dimer 251.1 Sodium 139 Potassium 4.2 Chloride 103 Carbon Dioxide 25 Anion Gap 11.0 BUN 15 Creatinine 0.8 Estimated GFR (MDRD) 78 L Glucose 97 Calcium 9.4 Total Bilirubin 0.8 AST 21 ALT 21 Alkaline Phosphatase 53 Troponin I High Sens Total Protein 7.9 Albumin 4.8 Globulin 3.1 Albumin/Globulin Ratio 1.5 Lipase 28 Urine Color Urine Clarity Urine pH Ur Specific [place] Urine Protein Urine Glucose (UA) Urine Ketones Urine Occult Blood Urine Nitrite Urine Bilirubin Urine Urobilinogen Ur Leukocyte Esterase Ur Microscopic Review Urine Culture Comments Urine HCG, Qual 03/09/19 03/09/19 12:16 12:33 WBC RBC Hgb Hct MCV MCH MCHC RDW Plt Count MPV Neut # (Auto) Lymph # (Auto) [place] # (Auto) Eos # (Auto) Baso # (Auto) Absolute Nucleated RBC Nucleated RBC % D-Dimer Sodium Potassium Chloride Carbon Dioxide Anion Gap BUN Creatinine Estimated GFR (MDRD) Glucose Calcium Total Bilirubin AST ALT Alkaline Phosphatase Troponin I High Sens < 2.3 L Total Protein Albumin Globulin Albumin/Globulin Ratio Lipase Urine Color YELLOW Urine Clarity CLEAR Urine pH 5.5 Ur Specific [place] 1.020 Urine Protein NEGATIVE Urine Glucose (UA) NEGATIVE Urine Ketones TRACE Urine Occult Blood NEGATIVE Urine Nitrite NEGATIVE Urine Bilirubin NEGATIVE Urine Urobilinogen 0.2 (NORMAL) Ur Leukocyte Esterase NEGATIVE Ur Microscopic Review NOT INDICATED Urine Culture Comments NOT INDICATED Urine HCG, Qual NEGATIVE PD MEDICAL DECISION MAKING - ED course ED course: 43-year-old woman with recurrent atypical chest pain, she is been worked up several times without a specific cause. As in the past she was evaluated for ACS, DVT/PE. Chest x-ray was held given that she has had several chest x-rays for similar symptoms without pertinent positive findings. Again work-up was negative and she requested discharge. Departure - Departure Disposition: 01 Home, Self Care Clinical Impression: Palpitations Chest pain Qualifiers: Chest pain type: unspecified Qualified Code(s): R07.9 - Chest pain, unspecified Condition: Good Record reviewed to determine appropriate education?: Yes Instructions: ED Chest Pain Atypical Unkn Cause Follow-Up: Johnathon Colon MD [Provider Admit Priv/Credential] - Comments: As discussed, your diagnostics are negative today suggesting against a severe cause. I recommend following up for the stress test as scheduled in 10 days. Return for new worsening symptoms. It also seems reasonable to follow-up with a sales systems engineer to explore whether this might be a GI origin.
[2019-03-09 12:38] LABS: ALBUMIN 4.8 g/dL (3.2-5.5); ALBUMIN/GLOBULIN RATIO 1.5 (1.0-2.2); BILIRUBIN,TOTAL 0.8 mg/dL (0.2-1.0); CALCIUM 9.4 mg/dL (8.5-10.3); CREATININE 0.8 mg/dL (0.4-1.0); TOTAL PROTEIN 7.9 g/dL (6.7-8.2)
[2019-03-09 12:48] LABS: BILIRUBIN,URINE NEGATIVE (NEGATIVE); GLUCOSE, URINE (UA) NEGATIVE (NEGATIVE); KETONES,URINE (UA) TRACE mg/dL (NEGATIVE); LEUKOCYTE ESTERASE, URINE NEGATIVE (NEGATIVE); NITRITE,URINE NEGATIVE (NEGATIVE); OCCULT BLOOD,URINE NEGATIVE (NEGATIVE); PH,URINE 5.5 PH (5.0-7.5); PROTEIN,URINE NEGATIVE (NEGATIVE); UROBILINOGEN,URINE 0.2 (NORMAL) E.U./dL (NORMAL)
[2019-03-09 12:49] LABS: CLARITY,URINE CLEAR (CLEAR)
[2019-03-09 12:50] LABS: HCG UR QUAL NEGATIVE
[2019-03-09 13:30] VITALS: BP 128/88
== END 2019-03-09 13:30 | disposition home or self-care (01) ==
LOC: ED 11:35
DX: R07.9 Chest pain, unspecified (principal); R00.2 Palpitations
CPT/HCPCS: 36415; 80053; 81003; 81025; 83690; 84484; 85025; 85379; 93005; 99284; A9270; 81001; 87086

== ENCOUNTER 2019-06-11 12:52 | Outpatient (CLI) | payer MEDICAID ==
[2019-06-11 14:10] LABS: THYROID STIMULATING HORMONE 0.74 uIU/mL (0.34-5.60)
[2019-06-11 14:38] LABS: FOLLICLE STIMULATING HORMONE 44.25 mIU/mL
== END 2019-06-11 12:53 | disposition home or self-care (01) ==
LOC: LAB 12:52
PROVIDERS: ATTEND Obstetrics & Gynecology
DX: N95.9 Unspecified menopausal and perimenopausal disorder (principal)
CPT/HCPCS: 36415; 82670; 83001; 84443

== ENCOUNTER 2019-06-20 13:16 | Emergency (ER) | payer MEDICAID ==
[2019-06-20 15:11] LABS: BILIRUBIN,URINE NEGATIVE (NEGATIVE); GLUCOSE, URINE (UA) NEGATIVE (NEGATIVE); KETONES,URINE (UA) NEGATIVE (NEGATIVE); LEUKOCYTE ESTERASE, URINE NEGATIVE (NEGATIVE); NITRITE,URINE NEGATIVE (NEGATIVE); OCCULT BLOOD,URINE NEGATIVE (NEGATIVE); PH,URINE 5.5 PH (5.0-7.5); PROTEIN,URINE NEGATIVE (NEGATIVE); UROBILINOGEN,URINE 0.2 (NORMAL) E.U./dL (NORMAL)
[2019-06-20 15:12] LABS: CLARITY,URINE CLEAR (CLEAR)
[2019-06-20] MEDS ORDERED: HYDROmorphone 1 MG/ML CARPUJECT IVP STA ×3 (15:32→18:33)
[2019-06-20] MEDS ORDERED: LIDOCAINE VISCOUS 2% 15 ML UDC MM STA (15:33)
[2019-06-20] MEDS ORDERED: MAG HYDROX/AL HYDROX/SIMETH 30 ML UDC PO STA (15:33)
--- NOTE | 2019-06-20 15:33 | ED Physician Documentation ---
PD HPI CHEST PAIN - Stated complaint Stated Complaint: CP, ABD PX, PALPUTATIONS - Chief complaint Chief Complaint: Cardiac - History obtained from History obtained from: Patient - History of Present Illness Timing - onset: Other (44-year-old woman with recurrent chest pain, remote history of cholecystectomy had sudden onset lower chest pain radiating to both sides starting about 2 hours ago not after eating. There is no associated shortness of breath, pedal edema, or calf pain. She is here relatively frequently for chest pain with negative work-ups but this is different she says and more severe from a pain perspective but not associated with shortness of breath which her pain often has.) Review of Systems Ten Systems: 10 systems reviewed and negative Constitutional: denies: Fever, Chills Cardiac: denies: Palpitations, Pedal edema, Calf pain Respiratory: denies: Dyspnea, Cough, Hemoptysis GI: denies: Abdominal Pain, Vomiting PD PAST MEDICAL HISTORY - Past Medical History Past Medical History: Yes Cardiovascular: None Respiratory: None Neuro: None Endocrine/Autoimmune: HyPERthyroidism GI: GERD Psych: Depression, Anxiety Musculoskeletal: Chronic back pain, Other - Past Surgical History Past Surgical History: Yes General: Cholecystectomy 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, Rotator cuff repair, 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, 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 - Present Medications Home Medications: Ambulatory Orders Medication Instructions Recorded Confirmed Estradiol 1 mg PO DAILY 11/17/16 03/09/19 DULoxetine [Cymbalta] 2 tab PO DAILY 08/10/18 12/26/18 Bupropion HCl [Wellbutrin Xl] 300 mg PO 03/09/19 Oxycodone HCl/Acetaminophen 1 - 2 each PO Q6H PRN #10 tablet 06/20/19 [Percocet 5-325 mg Tablet] - Allergies Allergies/Adverse Reactions: Allergies Allergy/AdvReac Type Severity Reaction Status Date / Time No Known Drug Allergies Allergy Verified 06/20/19 13:28 - Social History Does the pt smoke?: No Smoking Status: Never smoker Does the pt drink ETOH?: No Does the pt have substance abuse?: No - Immunizations Immunizations are current?: Yes - POLST Patient has POLST: No PD ED PE NORMAL - Vitals Vital signs reviewed: Yes - General General: Alert and oriented X 3, No acute distress - HEENT HEENT: PERRL, EOMI - Neck Neck: Supple, no meningeal sign, No bony TTP - Cardiac Cardiac: RRR, No murmur - Respiratory Respiratory: No respiratory distress, Clear bilaterally - Abdomen Abdomen: Soft, Other (Tender in the upper abdomen, left greater than right without surgical signs.) - Back Back: No CVA TTP, No spinal TTP - Derm Derm: Normal color, Warm and dry - Extremities Extremities: No deformity, No tenderness to palpate, No edema, No calf tenderness / cord - 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, Normal speech - Psych Psych: Normal mood, Normal affect Results - Vitals Vitals: Vital Signs - 24 hr 06/20/19 06/20/19 06/20/19 13:28 15:00 16:30 Temperature 36.8 C Heart Rate 94 77 77 Respiratory 16 13 13 Rate Blood Pressure 146/111 H 140/84 H 140/95 H O2 Saturation 98 99 95 06/20/19 19:26 Temperature Heart Rate 86 Respiratory 17 Rate Blood Pressure O2 Saturation 94 Oxygen O2 Source Room air Oxygen Flow Rate 2 - Labs Labs: Laboratory Tests 06/20/19 06/20/19 06/20/19 14:55 15:34 15:34 WBC 6.3 RBC 4.28 Hgb 13.3 Hct 40.6 MCV 94.9 MCH 31.1 H MCHC 32.8 RDW 12.9 Plt Count 277 MPV 9.8 Neut # (Auto) 3.2 Lymph # (Auto) 2.5 [place] # (Auto) 0.5 Eos # (Auto) 0.1 Baso # (Auto) 0.0 Absolute Nucleated RBC 0.00 Nucleated RBC % 0.0 D-Dimer Sodium 139 Potassium 4.0 Chloride 100 L Carbon Dioxide 30 Anion Gap 9.0 BUN 17 Creatinine 0.8 Estimated GFR (MDRD) 78 L Glucose 95 Calcium 9.5 Total Bilirubin 0.6 AST 20 ALT 25 Alkaline Phosphatase 71 Troponin I High Sens Total Protein 7.8 Albumin 4.5 Globulin 3.3 Albumin/Globulin Ratio 1.4 Lipase 27 Urine Color YELLOW Urine Clarity CLEAR Urine pH 5.5 Ur Specific [place] 1.010 Urine Protein NEGATIVE Urine Glucose (UA) NEGATIVE Urine Ketones NEGATIVE Urine Occult Blood NEGATIVE Urine Nitrite NEGATIVE Urine Bilirubin NEGATIVE Urine Urobilinogen 0.2 (NORMAL) Ur Leukocyte Esterase NEGATIVE Ur Microscopic Review NOT INDICATED Urine Culture Comments NOT INDICATED 06/20/19 06/20/19 15:34 15:34 WBC RBC Hgb Hct MCV MCH MCHC RDW Plt Count MPV Neut # (Auto) Lymph # (Auto) [place] # (Auto) Eos # (Auto) Baso # (Auto) Absolute Nucleated RBC Nucleated RBC % D-Dimer 249.2 Sodium Potassium Chloride Carbon Dioxide Anion Gap BUN Creatinine Estimated GFR (MDRD) Glucose Calcium Total Bilirubin AST ALT Alkaline Phosphatase Troponin I High Sens < 2.3 L Total Protein Albumin Globulin Albumin/Globulin Ratio Lipase Urine Color Urine Clarity Urine pH Ur Specific [place] Urine Protein Urine Glucose (UA) Urine Ketones Urine Occult Blood Urine Nitrite Urine Bilirubin Urine Urobilinogen Ur Leukocyte Esterase Ur Microscopic Review Urine Culture Comments PD MEDICAL DECISION MAKING - ED course ED course: 44-year-old woman with epigastric pain radiating to the chest and back. This is kind of a recurrent issue without positive findings in the past, has had multiple work-ups without any findings. On her last visit she was referred to gastroenterology and has not followed up yet. This was a worse than normal exacerbation of this for her and slightly atypical so thorough imaging with a CT of the abdomen and pelvis and then without pertinent positive findings angiography of the chest was done also negative. Departure - Departure Disposition: 01 Home, Self Care Clinical Impression: Abdominal pain Qualifiers: Abdominal location: epigastric Qualified Code(s): R10.13 - Epigastric pain Chest pain Qualifiers: Chest pain type: precordial pain Qualified Code(s): R07.2 - Precordial pain Condition: Good Record reviewed to determine appropriate education?: Yes Instructions: ED Chest Pain Atypical Unkn Cause Follow-Up: Johnathon Colon MD [Provider Admit Priv/Credential] - Prescriptions: Oxycodone HCl/Acetaminophen [Percocet 5-325 mg Tablet] 1 - 2 each PO Q6H PRN #10 tablet PRN Reason: pain Comments: As in the past, the cause of your pain today is not clear. Return for new or worsening symptoms. I recommend following up with gastroenterology for consideration for upper endoscopy.
[2019-06-20 15:42] LABS: BASOPHILS % (AUTO) 0.6 %; EOSINOPHILS # (AUTO) 0.1 10^3/uL (0.0-0.7); EOSINOPHILS % (AUTO) 1.6 %; HGB - HEMOGLOBIN 13.3 g/dL (12.0-16.0); LYMPHOCYTES # (AUTO) 2.5 10^3/uL (1.5-3.5); LYMPHOCYTES % (AUTO) 39.4 %; MEAN CORPUSCULAR HEMOGLOBIN 31.1 pg (27.0-31.0); MEAN CORPUSCULAR HGB CONC 32.8 g/dL (32.0-36.0); MEAN CORPUSCULAR VOLUME 94.9 fL (81.0-99.0); MEAN PLATELET VOLUME 9.8 fL (7.9-10.8); MONOCYTES # (AUTO) 0.5 10^3/uL (0.0-1.0); MONOCYTES % (AUTO) 7.4 %; NEUTROPHILS # (AUTO) 3.2 10^3/uL (1.5-6.6); NEUTROPHILS % (AUTO) 50.7 %; PLT - PLATELET COUNT 277 10^3/uL (130-450); RED BLOOD COUNT 4.28 10^6/uL (4.20-5.40); RED CELL DISTRIBUTION WIDTH 12.9 % (12.0-15.0); WHITE BLOOD COUNT 6.3 x10^3/uL (4.8-10.8)
[2019-06-20 15:54] LABS: ALBUMIN 4.5 g/dL (3.2-5.5); ALBUMIN/GLOBULIN RATIO 1.4 (1.0-2.2); BILIRUBIN,TOTAL 0.6 mg/dL (0.2-1.0); CALCIUM 9.5 mg/dL (8.5-10.3); CREATININE 0.8 mg/dL (0.4-1.0); TOTAL PROTEIN 7.8 g/dL (6.7-8.2)
[2019-06-20] MEDS ORDERED: IOVERSOL 320 100 ML VIAL IVP ONE ×3 (16:45→19:52)
--- NOTE | 2019-06-20 17:26 | CT Report ---
Reason: IV only, upper abd pain Procedure Date: 06/20/2019 Accession Number: [id number] / [id number] Procedure: CT - Abdomen/Pelvis W CPT Code: Final Report FULL RESULT: EXAM: CT ABDOMEN AND PELVIS EXAM DATE: 06/20/2019 05:03 PM. CLINICAL HISTORY: IV only, upper abd pain. COMPARISONS: ABDOMEN/PELVIS W/ 12/26/2018 3:48 PM. TECHNIQUE: Routine helical CT imaging was performed through the abdomen and pelvis. IV contrast: OPTI 320 100ML. Enteric contrast: No. Reconstructions: Coronal and sagittal. In accordance with CT protocol optimization, one or more of the following dose reduction techniques were utilized for this exam: automated exposure control, adjustment of mA and/or KV based on patient size, or use of iterative reconstructive technique. FINDINGS: Lung Bases: Unremarkable. Liver: Normal. No masses. Gallbladder/Bile Ducts: Gallbladder is surgically absent. Spleen: Normal. Pancreas: Normal. Adrenal Glands: Normal. Kidneys: Normal. No masses or hydronephrosis. Peritoneal Cavity/Bowel: Normal. No free fluid, free air or adenopathy. No masses or acute inflammatory process. There is a small fat-containing umbilical hernia. The appendix appears normal. Pelvic Organs: Urinary bladder appears unremarkable. Uterus is absent. Vasculature: No aneurysms or other significant abnormality. Bones: No significant abnormality. Other: None. IMPRESSION: 1. No acute CT abnormality to explain her abdominal pain. 2. There is a small fat-containing umbilical hernia which appears similar to previous. 3. Normal appendix. Absent gallbladder. RAD[facility]
[2019-06-20] MEDS ORDERED: KETOROLAC 30 MG/ML VIAL IVP STA (17:52)
--- NOTE | 2019-06-20 19:46 | CT Report ---
Reason: chest pain aorta protocol Procedure Date: 06/20/2019 Accession Number: [id number] / [id number] Procedure: CT - ANGIO CHEST W/WO CPT Code: Final Report FULL RESULT: EXAM: CT ANGIOGRAM CHEST EXAM DATE: 06/20/2019 06:51 PM. CLINICAL HISTORY: Chest pain. Midsternal chest pain. Evaluate for aortic dissection or aneurysm. COMPARISON: CHEST ANGIO 08/10/2018 12:48 PM. TECHNIQUE: Routine helical imaging was performed through the chest in the arterial phase. IV contrast: CE. Reconstructions: Coronal, sagittal, and 3D MIP reconstructions of the aorta. FINDINGS: Vascular Structures: Enlargement of the main pulmonary artery which may be slightly increased from prior study.. No aneurysm, dissection, or significant atherosclerotic disease of the thoracic aorta. Lungs/Pleura: No consolidation, suspicious nodules, or edema. There is a calcified granuloma in the left lower lobe. No effusions or pneumothorax. Mediastinum: Unremarkable. Upper Abdomen: Cholecystectomy. Other: Unchanged partially calcified nodule in the left breast. No suspicious osseous lesions. Partially imaged cervical spinal fusion hardware. Status post right rotator cuff repair. IMPRESSION: 1. No aortic aneurysm or dissection. 2. Enlargement of the main pulmonary artery which is nonspecific but can be seen in pulmonary hypertension. [facility]
[2019-06-20] MEDS ORDERED: ACETAMINOPHEN 1,000 MG/100 ML 100 ML IV STA (20:16)
[2019-06-20] MEDS ORDERED: oxyCODONE/ACET 5/325 Prepack 4 PO STA (20:18)
[2019-06-20 20:28] VITALS: BP 125/91
== END 2019-06-20 20:37 | disposition home or self-care (01) ==
LOC: ED 13:16
DX: R10.13 Epigastric pain (principal); R07.2 Precordial pain; M54.9 Dorsalgia, unspecified; Z90.49 Acquired absence of other specified parts of digestive tract; K42.9 Umbilical hernia without obstruction or gangrene; K21.9 Gastro-esophageal reflux disease without esophagitis
CPT/HCPCS: 36415; 71275; 74177; 80053; 81003; 83690; 84484; 85025; 85379; 93005; 96374; 96375; 96376; 99284; 99285; A9270; J1170; Q9967; 81001; 87086

== ENCOUNTER 2019-06-24 12:17 | Emergency (ER) | payer MEDICAID ==
[2019-06-24 14:10] LABS: BILIRUBIN,URINE NEGATIVE (NEGATIVE); GLUCOSE, URINE (UA) NEGATIVE (NEGATIVE); KETONES,URINE (UA) NEGATIVE (NEGATIVE); LEUKOCYTE ESTERASE, URINE NEGATIVE (NEGATIVE); NITRITE,URINE NEGATIVE (NEGATIVE); OCCULT BLOOD,URINE NEGATIVE (NEGATIVE); PROTEIN,URINE NEGATIVE (NEGATIVE); UROBILINOGEN,URINE 0.2 (NORMAL) E.U./dL (NORMAL)
[2019-06-24 14:12] LABS: CLARITY,URINE CLEAR (CLEAR); HCG UR QUAL NEGATIVE
--- NOTE | 2019-06-24 15:15 | ED Physician Documentation ---
PD HPI ABD PAIN - Stated complaint Stated Complaint: ABD PAIN, LT SIDE WEAKNESS, N/V - Chief complaint Chief Complaint: Abd Pain - History obtained from History obtained from: Patient - History of Present Illness Timing - onset: How many days ago Timing - duration: Days (5) Timing - details: Still present, Constant Pain level now: 7 Quality: Pain Location: Epigastric, LUQ Improved by: No: Eating, Laying still, Vomiting, BM, Position, Meds, Other Associated symptoms: Nausea, Vomiting (Last emesis was last night), Dizzy. No: Fever, Hematemesis, Diarrhea, Constipation, Dysuria, Hematuria, Near syncope / syncope Recently seen: Emergency Dept - Additional information Additional information: This is a 44-year-old woman who was seen in the emergency department 5 days ago for abdominal pain and had an extensive work-up including a CT abdomen pelvis and CT angio of her chest. She was discharged with a prescription for Percocet which she has been taking and says that it "dulls the pain" but it does not take it away and is just been getting more severe. This in the epigastric region region and radiates to the left upper quadrant similar to when she had gallstones. Is currently a 7 out of 10 and she has not taken anything for it today. She is been nauseous and had some vomiting with the last emesis last night. No diarrhea. She says the pain feels similar to when she had her gallbladder removed. She denies any dysuria but she is had urinary frequency. Has not seen any blood in it. She does have a history of kidney stones. She is felt mildly short of breath but no coughing. She was instructed to follow-up with her primary care provider for referral to GI specialist but she cannot get into see her primary care until July 11. She is felt dizzy but has not passed out. She is not diabetic. She is not taking any antiacid medications. She complains that her mouth feels very dry. Review of Systems Constitutional: denies: Fever Throat: reports: Other (Dry mouth) Cardiac: denies: Chest pain / pressure Respiratory: denies: Dyspnea, Cough GI: reports: Abdominal Pain, Nausea, Vomiting. denies: Constipation, Diarrhea, Hematemesis : reports: Frequency. denies: Dysuria, Hematuria, Now EGA Skin: denies: Rash Musculoskeletal: denies: Back pain Neurologic: reports: Near syncope. 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 - Present Medications Home Medications: Ambulatory Orders Medication Instructions Recorded Confirmed Estradiol 1 mg PO DAILY 11/17/16 03/09/19 DULoxetine [Cymbalta] 2 tab PO DAILY 08/10/18 12/26/18 Bupropion HCl [Wellbutrin Xl] 300 mg PO 03/09/19 Oxycodone HCl/Acetaminophen 1 - 2 each PO Q6H PRN #10 tablet 06/20/19 [Percocet 5-325 mg Tablet] - Allergies Allergies/Adverse Reactions: Allergies Allergy/AdvReac Type Severity Reaction Status Date / Time No Known Drug Allergies Allergy Verified 06/24/19 12:30 - Social History Does the pt smoke?: No Smoking Status: Never smoker Does the pt drink ETOH?: No Does the pt have substance abuse?: No - Immunizations Immunizations are current?: Yes - POLST Patient has POLST: No PD ED PE NORMAL - Vitals Vital signs reviewed: Yes - General General: Alert and oriented X 3, No acute distress, Well developed/nourished - HEENT HEENT: Atraumatic, PERRL, EOMI, Other (No scleral icterus). No: Moist mucous membranes (Mucous membranes are dry) - Neck Neck: Supple, no meningeal sign, No adenopathy - Cardiac Cardiac: RRR, No murmur, No gallop, No rub, Strong equal pulses - Respiratory Respiratory: No respiratory distress, Clear bilaterally - Abdomen Abdomen: Normal bowel sounds, Soft, Non tender, Non distended, No organomegaly - Back Back: No CVA TTP - Derm Derm: Normal color, Warm and dry, No rash - Extremities Extremities: No deformity, No edema - 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, subscription agent 2-12 intact, No motor deficit, No sensory deficit, Normal speech - Psych Psych: Normal mood, Normal affect Results - Vitals Vitals: Vital Signs - 24 hr 06/24/19 06/24/1906/24/20 12:30 15:50 17:26 Temperature 36.5 C Heart Rate 95 73 85 Respiratory 17 15 14 Rate Blood Pressure 151/95 H 149/91 H 133/54 H O2 Saturation 94 97 95 Oxygen O2 Source Room air - Labs Labs: Laboratory Tests 06/24/19 06/24/19 06/24/19 13:56 15:06 15:06 WBC 7.1 RBC 4.29 Hgb 13.5 Hct 40.4 MCV 94.2 MCH 31.5 H MCHC 33.4 RDW 12.5 Plt Count 268 MPV 9.5 Neut # (Auto) 3.9 Lymph # (Auto) 2.6 [place] # (Auto) 0.5 Eos # (Auto) 0.1 Baso # (Auto) 0.0 Absolute Nucleated RBC 0.00 Nucleated RBC % 0.0 Sodium 137 Potassium 3.8 Chloride 101 Carbon Dioxide 28 Anion Gap 8.0 BUN 11 Creatinine 0.9 Estimated GFR (MDRD) 68 L Glucose 92 Calcium 9.3 Total Bilirubin 0.8 AST 25 ALT 29 Alkaline Phosphatase 58 Total Protein 7.6 Albumin 4.6 Globulin 3.0 Albumin/Globulin Ratio 1.5 Lipase 27 Urine Color YELLOW Urine Clarity CLEAR Urine pH 8.0 H Ur Specific [place] 1.015 Urine Protein NEGATIVE Urine Glucose (UA) NEGATIVE Urine Ketones NEGATIVE Urine Occult Blood NEGATIVE Urine Nitrite NEGATIVE Urine Bilirubin NEGATIVE Urine Urobilinogen 0.2 (NORMAL) Ur Leukocyte Esterase NEGATIVE Ur Microscopic Review NOT INDICATED Urine Culture Comments NOT INDICATED Urine HCG, Qual NEGATIVE PD MEDICAL DECISION MAKING - ED course Complexity details: re-evaluated patient, d/w patient ED course: Screening labs were obtained again with normal electrolytes, liver function and lipase as well as a normal CBC. Her urine is clear. She just had a CT abdomen pelvis 4 days ago as well as a CT angiogram of her chest that did not elucidate date any specific reason for her pain. At this time she was given Toradol IV said that she had essentially 0 pain relief she was also given Zofran for nausea and that did seem to help with the nausea. She was given 5 mg of Haldol IV and on reevaluation she was sleeping and said that she was feeling a little better. She will be discharged home and encouraged to follow-up with her primary care provider for referral to a GI specialist. She should contact their office since this is her second visit in a week to the emergency department to see if they can see her sooner than her scheduled appointment on July 11. Departure - Departure Disposition: Home, Self Care Clinical Impression: Abdominal pain Qualifiers: Abdominal location: left upper quadrant Qualified Code(s): R10.12 - Left upper quadrant pain Condition: Good Instructions: ED Abdominal Pain Unkn Cause Follow-Up: Mel Nieves DO [Primary Care Provider] - Comments: Eat a bland diet tonight. Follow-up with your primary care provider for referral to GI specialist. Return for reevaluation if you have increasing pains especially if associated with persistent vomiting or fever.
[2019-06-24 15:18] LABS: BASOPHILS % (AUTO) 0.4 %; EOSINOPHILS # (AUTO) 0.1 10^3/uL (0.0-0.7); EOSINOPHILS % (AUTO) 1.6 %; HGB - HEMOGLOBIN 13.5 g/dL (12.0-16.0); LYMPHOCYTES # (AUTO) 2.6 10^3/uL (1.5-3.5); LYMPHOCYTES % (AUTO) 36.1 %; MEAN CORPUSCULAR HEMOGLOBIN 31.5 pg (27.0-31.0); MEAN CORPUSCULAR HGB CONC 33.4 g/dL (32.0-36.0); MEAN CORPUSCULAR VOLUME 94.2 fL (81.0-99.0); MEAN PLATELET VOLUME 9.5 fL (7.9-10.8); MONOCYTES # (AUTO) 0.5 10^3/uL (0.0-1.0); MONOCYTES % (AUTO) 6.9 %; NEUTROPHILS # (AUTO) 3.9 10^3/uL (1.5-6.6); NEUTROPHILS % (AUTO) 54.9 %; PLT - PLATELET COUNT 268 10^3/uL (130-450); RED BLOOD COUNT 4.29 10^6/uL (4.20-5.40); RED CELL DISTRIBUTION WIDTH 12.5 % (12.0-15.0); WHITE BLOOD COUNT 7.1 x10^3/uL (4.8-10.8)
[2019-06-24] MEDS ORDERED: KETOROLAC 30 MG/ML VIAL IVP STA (15:34)
[2019-06-24 15:35] LABS: ALBUMIN 4.6 g/dL (3.2-5.5); ALBUMIN/GLOBULIN RATIO 1.5 (1.0-2.2); BILIRUBIN,TOTAL 0.8 mg/dL (0.2-1.0); CALCIUM 9.3 mg/dL (8.5-10.3); CREATININE 0.9 mg/dL (0.4-1.0); TOTAL PROTEIN 7.6 g/dL (6.7-8.2)
[2019-06-24] MEDS ORDERED: FAMOTIDINE 20 MG/2 ML VIAL IVP STA (15:38)
[2019-06-24] MEDS ORDERED: SODIUM CHLORIDE 0.9% 1,000 ML IV ONE (15:39)
[2019-06-24] MEDS ORDERED: HALOPERIDOL 5 MG/ML VIAL IVP ONE (17:00)
[2019-06-24 17:27] VITALS: BP 133/54
== END 2019-06-24 18:03 | disposition home or self-care (01) ==
LOC: ED 12:17
DX: R10.12 Left upper quadrant pain (principal)
CPT/HCPCS: 36415; 80053; 81001; 81003; 81025; 83690; 85025; 87086; 96361; 96374; 96375; 99284

== ENCOUNTER 2019-07-26 15:38 | Emergency (ER) | payer MEDICAID ==
--- NOTE | 2019-07-26 16:16 | XRAY Report ---
Reason: CHEST PAIN Procedure Date: 07/26/2019 Accession Number: [id number] / [id number] Procedure: XR - Chest 2 View X-Ray CPT Code: 52744 Final Report FULL RESULT: EXAM: CHEST RADIOGRAPHY EXAM DATE: 07/26/2019 04:04 PM. CLINICAL HISTORY: CHEST PAIN. COMPARISON: CHEST 2 VIEW 02/02/2019 8:06 AM. TECHNIQUE: 2 views. FINDINGS: Lungs/Pleura: No focal opacities evident. No pleural effusion. No pneumothorax. Normal volumes. Mediastinum: Heart and mediastinal contours are unremarkable. Other: None. IMPRESSION: Normal 2-view chest radiography. [facility]
--- NOTE | 2019-07-26 16:26 | ED Physician Documentation ---
PD HPI CHEST PAIN - Stated complaint Stated Complaint: CP, NAUSEA - Chief complaint Chief Complaint: Cardiac - History obtained from History obtained from: Patient - History of Present Illness Timing - onset: How many minutes ago (30) - Additional information Additional information: Patient comes emergency department complaining of substernal chest pain radiati ng into her epigastric area that started about 30 minutes ago. 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 She states that she has had symptoms like this before, but this time, she actually felt nauseated, as well.She denies feeling short of breath. Patient has not been ill with any respiratory conditions. She states that she has Undergone cardiac work-up previously and actually had a negative stress test 3 months ago for similar symptoms. She states she has a history of anxiety but is on medication for this and it is quite well controlled. She does not have a history of GERD and has not had any "heartburn" recently. She denies any new medications. She states her grandmother had an NE in her older years. The patient states she used to be a smoker and quit about 8 years ago. She has a history of hyperlipidemia with her most recent cholesterol level being 350. She is not a diabetic and does not have hypertension as far she knows.Patient denies any lower extremity edema. She has not been on any recent trips and has not been immobilized for any other reason. She is not on control. No other complaints at this time Review of Systems Ten Systems: 10 systems reviewed and negative Constitutional: reports: Reviewed and negative Eyes: reports: Reviewed and negative Ears: reports: Reviewed and negative Nose: reports: Reviewed and negative Throat: reports: Reviewed and negative Cardiac: reports: Chest pain / pressure Respiratory: reports: Reviewed and negative GI: reports: Abdominal Pain, Nausea : reports: Reviewed and negative Skin: reports: Reviewed and negative Musculoskeletal: reports: Reviewed and negative Neurologic: reports: Reviewed and negative Psychiatric: reports: Reviewed and negative Endocrine: reports: Reviewed and negative Immunocompromised: reports: Reviewed and negative PD PAST MEDICAL HISTORY - Past Medical History Cardiovascular: None Respiratory: None Neuro: None Endocrine/Autoimmune: HyPERthyroidism GI: GERD Psych: Depression, Anxiety Musculoskeletal: Chronic back pain, Other - Past Surgical History Past Surgical History: Yes General: Cholecystectomy 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, Rotator cuff repair, 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, 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 - Present Medications Home Medications: Ambulatory Orders Medication Instructions Recorded Confirmed Estradiol 1 mg PO DAILY 11/17/16 03/09/19 DULoxetine [Cymbalta] 2 tab PO DAILY 08/10/18 12/26/18 Bupropion HCl [Wellbutrin Xl] 300 mg PO 03/09/19 Oxycodone HCl/Acetaminophen 1 - 2 each PO Q6H PRN #10 tablet 06/20/19 [Percocet 5-325 mg Tablet] - Allergies Allergies/Adverse Reactions: Allergies Allergy/AdvReac Type Severity Reaction Status Date / Time No Known Drug Allergies Allergy Verified 06/24/19 12:30 - Social History Does the pt smoke?: No Smoking Status: Never smoker Does the pt drink ETOH?: No Does the pt have substance abuse?: No - Immunizations Immunizations are current?: Yes - POLST Patient has POLST: No PD ED PE NORMAL - Vitals Vital signs reviewed: Yes - General General: Alert and oriented X 3, No acute distress (Patient does, however, appear mildly anxious.) - HEENT HEENT: PERRL - Neck Neck: Supple, no meningeal sign - Cardiac Cardiac: RRR, No murmur - Respiratory Respiratory: Clear bilaterally - Abdomen Abdomen: Soft, Non tender, Non distended - Derm Derm: Warm and dry - Extremities Extremities: No deformity, No tenderness to palpate, No edema - 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 - Psych Psych: Normal affect, Other (Mildly anxious) Results - Vitals Vitals: Vital Signs - 24 hr 07/26/19 07/26/19 07/26/19 15:43 16:11 16:30 Temperature 36.1 C L Heart Rate 91 89 82 Respiratory 18 10 L 19 Rate Blood Pressure 115/91 H 135/92 H 137/71 H O2 Saturation 98 99 96 07/26/19 07/26/19 07/26/19 17:00 17:30 18:00 Temperature Heart Rate 76 82 71 Respiratory 17 22 17 Rate Blood Pressure 118/71 126/73 131/80 H O2 Saturation 96 100 95 07/26/19 07/26/19 18:30 19:00 Temperature Heart Rate 61 73 Respiratory 16 17 Rate Blood Pressure 126/108 H 134/87 H O2 Saturation 98 97 Oxygen O2 Source Room air - EKG (time done) 1550 Rate: Rate (enter#) Rhythm: NSR [place]: Normal Intervals: Normal IN QRS: LVH Ischemia: Normal ST segments Other comments: Other comments (Abnormal R wave progression, early transition, borderline EKG) Computer interpretation: Agree with computer - Labs Labs: Laboratory Tests 07/26/19 07/26/19 07/26/19 16:33 16:33 16:33 WBC 5.3 RBC 3.88 L Hgb 12.5 Hct 36.6 L MCV 94.3 MCH 32.2 H MCHC 34.2 RDW 12.6 Plt Count 234 MPV 9.8 Neut # (Auto) 2.7 Lymph # (Auto) 2.1 [place] # (Auto) 0.4 Eos # (Auto) 0.1 Baso # (Auto) 0.0 Absolute Nucleated RBC 0.00 Nucleated RBC % 0.0 Sodium 136 Potassium 3.8 Chloride 100 L Carbon Dioxide 27 Anion Gap 9.0 BUN 19 Creatinine 0.8 Estimated GFR (MDRD) 78 L Glucose 108 H Calcium 9.4 Total Bilirubin 0.5 AST 25 ALT 34 Alkaline Phosphatase 70 Troponin I High Sens 2.4 Total Protein 6.8 Albumin 4.2 Globulin 2.6 Albumin/Globulin Ratio 1.6 Lipase 34 - Rads (name of study) us ab Radiology: Final report received, See rad report PD MEDICAL DECISION MAKING - ED course Complexity details: reviewed old records, reviewed results, re-evaluated patient, considered differential, d/w patient ED course: The patient was worked up in the emergency department with labs, EKG and ultrasound of the upper abdomen to evaluate her common bile duct. Work-up was unremarkable. The patient wasFairly low risk for coronary artery disease, and had recently had a negative stress test. She does not display signs of DVT, and her vital signs were reassuring. I discussed with the patient that at this point in time, we have not found any emergent cause of her symptoms. I have advised her that it would be best for her to follow-up with her primary care physician to discuss the possibility of having endoscopy done to further evaluate her episodes of chest pain and upper abdominal pain. There does appear to be an anxiety component to the patient's symptoms as well and she has been treated with a dose of Ativan in the emergency department for this. Patient states she does not want to be on any further medication at this time and will follow-up with her primary care physician. We have discussed home management symptoms, as well as usual indications for return. Departure - Departure Disposition: 01 Home, Self Care Clinical Impression: Chest pain Condition: Good Instructions: ED Chest Pain NonCardiac Comments: Your work-up tonight was reassuring.Your cardiac labs and EKG look good, and aside from this, you have had a very recent negative stress test. On top of that you are fairly low risk for coronary artery disease. You have been evaluated as well with ultrasound to look at the remnant of your common bile duct and this looks fairly good. It is important that you follow-up with your primary care physician to discuss the possibility of having an endoscopy done to evaluate your esophagus and stomach, as this is another potential source for your symptoms. Please continue your anti-anxiety medication, as directed. Discharge Date/Time: 07/26/19 19:17
[2019-07-26 16:39] LABS: BASOPHILS % (AUTO) 0.4 %; EOSINOPHILS # (AUTO) 0.1 10^3/uL (0.0-0.7); EOSINOPHILS % (AUTO) 1.7 %; HGB - HEMOGLOBIN 12.5 g/dL (12.0-16.0); LYMPHOCYTES # (AUTO) 2.1 10^3/uL (1.5-3.5); MEAN CORPUSCULAR HEMOGLOBIN 32.2 pg (27.0-31.0); MEAN CORPUSCULAR HGB CONC 34.2 g/dL (32.0-36.0); MEAN CORPUSCULAR VOLUME 94.3 fL (81.0-99.0); MEAN PLATELET VOLUME 9.8 fL (7.9-10.8); MONOCYTES # (AUTO) 0.4 10^3/uL (0.0-1.0); MONOCYTES % (AUTO) 7.7 %; NEUTROPHILS # (AUTO) 2.7 10^3/uL (1.5-6.6); PLT - PLATELET COUNT 234 10^3/uL (130-450); RED BLOOD COUNT 3.88 10^6/uL (4.20-5.40); RED CELL DISTRIBUTION WIDTH 12.6 % (12.0-15.0); WHITE BLOOD COUNT 5.3 x10^3/uL (4.8-10.8)
[2019-07-26 17:03] LABS: ALBUMIN 4.2 g/dL (3.2-5.5); ALBUMIN/GLOBULIN RATIO 1.6 (1.0-2.2); BILIRUBIN,TOTAL 0.5 mg/dL (0.2-1.0); CALCIUM 9.4 mg/dL (8.5-10.3); CREATININE 0.8 mg/dL (0.4-1.0); TOTAL PROTEIN 6.8 g/dL (6.7-8.2)
[2019-07-26] MEDS ORDERED: LORazepam 1 MG TABLET PO STA (18:23)
--- NOTE | 2019-07-26 19:12 | Ultrasound Report ---
Reason: upper abd pain Procedure Date: 07/26/2019 Accession Number: [id number] / [id number] Procedure: US - Abdomen Limited CPT Code: Final Report FULL RESULT: EXAM: ABDOMEN ULTRASOUND LIMITED, RUQ EXAM DATE: 07/26/2019 06:51 PM. CLINICAL HISTORY: Upper abdomen pain. COMPARISON: ABDOMEN/PELVIS W/ 06/20/2019 4:55 PM. TECHNIQUE: Real-time scanning was performed with static images obtained. FINDINGS: Liver: Normal in size with hyperechoic echotexture. 15.8 cm. Main portal vein flow: Hepatopetal. Gallbladder: Surgically absent. Biliary System: CBD measures 4 mm. No intrahepatic or extrahepatic ductal dilatation. Other: The visualized pancreas and right kidney are unremarkable. No free fluid. IMPRESSION: 1. Hepatic steatosis. 2. Cholecystectomy, with no ductal dilatation. RADIA
[2019-07-26 19:17] VITALS: BP 134/87
== END 2019-07-26 19:17 | disposition home or self-care (01) ==
LOC: ED 15:38
DX: R07.9 Chest pain, unspecified (principal); F41.9 Anxiety disorder, unspecified; Z87.891 Personal history of nicotine dependence
CPT/HCPCS: 36415; 71046; 76705; 80053; 83690; 84484; 85025; 93005; 99284; J8499

== ENCOUNTER 2019-08-15 10:13 | Emergency (ER) | payer MEDICAID ==
[2019-08-15 10:58] LABS: BASOPHILS % (AUTO) 0.3 %; EOSINOPHILS % (AUTO) 0.2 %; HGB - HEMOGLOBIN 14.6 g/dL (12.0-16.0); LYMPHOCYTES # (AUTO) 1.8 10^3/uL (1.5-3.5); LYMPHOCYTES % (AUTO) 15.4 %; MEAN CORPUSCULAR HEMOGLOBIN 31.7 pg (27.0-31.0); MEAN CORPUSCULAR VOLUME 93.5 fL (81.0-99.0); MEAN PLATELET VOLUME 9.9 fL (7.9-10.8); MONOCYTES # (AUTO) 0.5 10^3/uL (0.0-1.0); MONOCYTES % (AUTO) 4.6 %; NEUTROPHILS # (AUTO) 9.2 10^3/uL (1.5-6.6); NEUTROPHILS % (AUTO) 79.2 %; PLT - PLATELET COUNT 228 10^3/uL (130-450); RED CELL DISTRIBUTION WIDTH 12.5 % (12.0-15.0); WHITE BLOOD COUNT 11.7 x10^3/uL (4.8-10.8)
[2019-08-15 11:12] LABS: ALBUMIN 4.8 g/dL (3.2-5.5); ALBUMIN/GLOBULIN RATIO 1.5 (1.0-2.2); BILIRUBIN,TOTAL 0.9 mg/dL (0.2-1.0); CALCIUM 9.6 mg/dL (8.5-10.3); CREATININE 0.8 mg/dL (0.4-1.0)
[2019-08-15 11:13] LABS: BILIRUBIN,URINE NEGATIVE (NEGATIVE); GLUCOSE, URINE (UA) NEGATIVE (NEGATIVE); KETONES,URINE (UA) NEGATIVE (NEGATIVE); LEUKOCYTE ESTERASE, URINE NEGATIVE (NEGATIVE); NITRITE,URINE NEGATIVE (NEGATIVE); OCCULT BLOOD,URINE NEGATIVE (NEGATIVE); PROTEIN,URINE NEGATIVE (NEGATIVE); UROBILINOGEN,URINE 0.2 (NORMAL) E.U./dL (NORMAL)
[2019-08-15 11:14] LABS: CLARITY,URINE CLEAR (CLEAR); HCG UR QUAL NEGATIVE
[2019-08-15] MEDS ORDERED: KETOROLAC 30 MG/ML VIAL IVP STA (11:44)
[2019-08-15] MEDS ORDERED: SODIUM CHLORIDE 0.9% 1,000 ML IV ONE (11:44)
[2019-08-15] MEDS ORDERED: ONDANSETRON 4 MG/2 ML VIAL IVP STA (11:44)
--- NOTE | 2019-08-15 11:49 | ED Physician Documentation ---
History of Present Illness - Stated complaint Stated Complaint: N/V - Chief complaint Chief Complaint: Abd Pain - History obtained from History obtained from: Patient - Additonal information Additional information: Patient comes emergency department complaining of nausea and vomiting for the last 4 days. She states that for the first couple days she had fevers up to 100.9. She denies dysuria but states she has had some urinary incontinence both with vomiting and in between episodes of vomiting. She states that for the last 2 days she has not had a fever. She denies diarrhea. She has some right lower quadrant abdominal pain. She states she has had a cholecystectomy and total hysterectomy, but still has her appendix. She denies any other abdominal history. She states she is otherwise fairly healthy. No other complaints at this time.Patient has not had any sick contacts that she knows of. Review of Systems Ten Systems: 10 systems reviewed and negative Constitutional: reports: Fever Eyes: reports: Reviewed and negative Ears: reports: Reviewed and negative Nose: reports: Reviewed and negative Throat: reports: Reviewed and negative Cardiac: reports: Reviewed and negative Respiratory: reports: Reviewed and negative GI: reports: Abdominal Pain, Nausea, Vomiting : reports: Reviewed and negative Skin: reports: Reviewed and negative Musculoskeletal: reports: Reviewed and negative Neurologic: reports: Reviewed and negative Psychiatric: reports: Reviewed and negative Endocrine: reports: Reviewed and negative Immunocompromised: reports: Reviewed and negative PD PAST MEDICAL HISTORY - Past Medical History Cardiovascular: None Respiratory: None Neuro: None Endocrine/Autoimmune: HyPERthyroidism GI: GERD Psych: Depression, Anxiety Musculoskeletal: Chronic back pain, Other - Past Surgical History Past Surgical History: Yes General: Cholecystectomy 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, Rotator cuff repair, 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, 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 - Present Medications Home Medications: Ambulatory Orders Medication Instructions Recorded Confirmed Estradiol 1 mg PO DAILY 11/17/16 03/09/19 DULoxetine [Cymbalta] 2 tab PO DAILY 08/10/18 12/26/18 Bupropion HCl [Wellbutrin Xl] 300 mg PO 03/09/19 Oxycodone HCl/Acetaminophen 1 - 2 each PO Q6H PRN #10 tablet 06/20/19 [Percocet 5-325 mg Tablet] Ondansetron Odt [Zofran] 4 mg TL Q6H PRN #10 tablet 08/15/19 - Allergies Allergies/Adverse Reactions: Allergies Allergy/AdvReac Type Severity Reaction Status Date / Time No Known Drug Allergies Allergy Verified 06/24/19 12:30 - Social History Does the pt smoke?: No Smoking Status: Never smoker Does the pt drink ETOH?: No Does the pt have substance abuse?: No - Immunizations Immunizations are current?: Yes - POLST Patient has POLST: No PD ED PE NORMAL - Vitals Vital signs reviewed: Yes - General General: Alert and oriented X 3, No acute distress, Other (Patient appears mildly uncomfortable.) - HEENT HEENT: Atraumatic, PERRL, EOMI, Moist mucous membranes - Neck Neck: Supple, no meningeal sign - Cardiac Cardiac: RRR, No murmur - Respiratory Respiratory: No respiratory distress, Clear bilaterally - Abdomen Abdomen: Soft, Non distended, Other (Patient has moderate right lower quadrant abdominal tenderness, no rebound or guarding.) - Back Back: Other (Mild right CVA tenderness.) - Derm Derm: Warm and dry - Extremities Extremities: No deformity, No tenderness to palpate, No edema - 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, 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, No motor deficit, No sensory deficit, Normal speech - Psych Psych: Normal mood, Normal affect Results - Vitals Vitals: Vital Signs - 24 hr 08/15/19 08/15/19 10:19 14:35 Temperature 37.9 C H 36.5 C Heart Rate 102 H 88 Respiratory 50 H 16 Rate Blood Pressure 128/107 H 133/78 H O2 Saturation 96 99 Oxygen O2 Source Room air - Labs Labs: Laboratory Tests 08/15/19 08/15/19 08/15/19 10:21 10:54 10:54 WBC 11.7 H RBC 4.60 Hgb 14.6 Hct 43.0 MCV 93.5 MCH 31.7 H MCHC 34.0 RDW 12.5 Plt Count 228 MPV 9.9 Neut # (Auto) 9.2 H Lymph # (Auto) 1.8 [place] # (Auto) 0.5 Eos # (Auto) 0.0 Baso # (Auto) 0.0 Absolute Nucleated RBC 0.00 Nucleated RBC % 0.0 Sodium 136 Potassium 4.0 Chloride 101 Carbon Dioxide 22 Anion Gap 13.0 BUN 17 Creatinine 0.8 Estimated GFR (MDRD) 78 L Glucose 126 H Calcium 9.6 Total Bilirubin 0.9 AST 26 ALT 32 Alkaline Phosphatase 60 Total Protein 8.0 Albumin 4.8 Globulin 3.2 Albumin/Globulin Ratio 1.5 Lipase 20 L Urine Color YELLOW Urine Clarity CLEAR Urine pH 6.0 Ur Specific [place] 1.025 Urine Protein NEGATIVE Urine Glucose (UA) NEGATIVE Urine Ketones NEGATIVE Urine Occult Blood NEGATIVE Urine Nitrite NEGATIVE Urine Bilirubin NEGATIVE Urine Urobilinogen 0.2 (NORMAL) Ur Leukocyte Esterase NEGATIVE Ur Microscopic Review NOT INDICATED Urine Culture Comments NOT INDICATED Urine HCG, Qual NEGATIVE - Rads (name of study) CT abdomen pelvis Radiology: Final report received, EMP read indepedently, See rad report PD MEDICAL DECISION MAKING - ED course Complexity details: reviewed results, re-evaluated patient, d/w patient ED course: Patient was treated with IV fluids, Zofran, and Toradol in the emergency department initially. She was worked up with labs, urinalysis, and CT of the abdomen and pelvis. Notably, the patient was noted to have comfortable respirations with a normal respiratory rate on my exam, though nursing note does state respiratory rate is "50" initially. I suspect the patient was in the midst of a bout of nausea at the time initial vitals were taken.The patient's work-up, including CT scan, was unremarkable. I discussed with the patient the most likely, she has 1 of the viral illnesses that are going around, and that this should be self-limited. The patient appeared more comfortable on reevaluation and ambulated in the emergency department without difficulty. I felt she was stable for discharge home. We have discussed home management of the symptoms, as well as the usual indications for return. Departure - Departure Disposition: 01 Home, Self Care Clinical Impression: Vomiting, Abdominal pain Condition: Fair Instructions: ED Abdominal Pain Unkn Cause, ED Nausea Vomiting Prescriptions: Ondansetron Odt [Zofran] 4 mg TL Q6H PRN #10 tablet PRN Reason: Nausea / Vomiting Comments: Your labs and CT scan look good. There is no evidence of appendicitis or any other serious organ infection or other condition. You do not have a urinary tract infection. Most likely, you have 1 of the many viral illnesses that go around this time of year. You may take the Zofran as needed for nausea. You may also use ibuprofen and Tylenol if needed for fever. Please focus on drinking clear liquids and do not worry about eating or getting specific nutrition at this time. Mainly, until you are feeling better, you should try to stay hydrated, and you can catch up on calories and nutrition later. Discharge Date/Time: 08/15/19 14:38
[2019-08-15] MEDS ORDERED: IOVERSOL 320 100 ML VIAL IVP ONE ×2 (12:02→12:57)
--- NOTE | 2019-08-15 13:10 | CT Report ---
Reason: RLQ abd pain, fever, vomiting Procedure Date: 08/15/2019 Accession Number: [id number] / [id number] Procedure: CT - Abdomen/Pelvis W CPT Code: Final Report FULL RESULT: EXAM: CT ABDOMEN AND PELVIS EXAM DATE: 08/15/2019 12:54 PM. CLINICAL HISTORY: RLQ abd pain, fever, vomiting. COMPARISONS: ABDOMEN/PELVIS W/ 06/20/2019 4:55 PM. TECHNIQUE: Routine helical CT imaging was performed through the abdomen and pelvis. IV contrast: 100 cc Optiray 320 IV. Enteric contrast: No. Reconstructions: Coronal and sagittal. In accordance with CT protocol optimization, one or more of the following dose reduction techniques were utilized for this exam: automated exposure control, adjustment of mA and/or KV based on patient size, or use of iterative reconstructive technique. FINDINGS: Lung Bases: Unremarkable. Liver: Normal. No masses. Gallbladder/Bile Ducts: The gallbladder is surgically absent. Spleen: Normal. Pancreas: Normal. Adrenal Glands: Normal. Kidneys: Normal. No masses or hydronephrosis. No kidney stones. Peritoneal Cavity/Bowel: Normal. No free fluid, free air or adenopathy. No masses or acute inflammatory process. The appendix is well visualized and normal. Pelvic Organs: Urinary bladder is unremarkable. Uterus is absent. Ovaries not visualized. Vasculature: The abdominal aorta is normal in caliber. Negligible calcified plaque. Bones: No significant abnormality. Other: None. IMPRESSION: 1. Normal appendix. 2. Previous cholecystectomy and hysterectomy. 3. No localizing acute inflammatory process or other CT abnormality to explain clinical symptoms. RADIA
[2019-08-15 14:35] VITALS: BP 133/78
== END 2019-08-15 14:38 | disposition home or self-care (01) ==
LOC: ED 10:13
DX: R11.2 Nausea with vomiting, unspecified (principal); R10.31 Right lower quadrant pain
CPT/HCPCS: 36415; 74177; 80053; 81003; 81025; 83690; 85025; 96374; 96375; 99284; Q9967; 81001; 87086

== ENCOUNTER 2019-09-02 10:14 | Emergency (ER) | payer MEDICAID ==
--- NOTE | 2019-09-02 10:36 | ED Physician Documentation ---
PD HPI URI - Stated complaint Stated Complaint: COUGH/SOA - Chief complaint Chief Complaint: Resp - History obtained from History obtained from: Patient - History of Present Illness Timing - onset: Yesterday Timing duration: Days (1-2) Timing details: Gradual onset, Still present Associated symptoms: Sweats (feels hot and sweaty), Dry cough (onset of dry cough and feeling of tightness in chest since yesterday. No history of asthma per se, but has had inhaler with URIs in the past.). 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 No: Travel, Immunocompromised, COPD / asthma Similar symptoms before: Diagnosis (some URIs and allergies in the past, but no consistent dyspnea/wheezing processes.) Review of Systems Constitutional: reports: Chills, Myalgias. denies: Fever Nose: reports: Congestion. denies: Rhinorrhea / runny nose Throat: denies: Sore throat Cardiac: denies: Chest pain / pressure Respiratory: reports: Dyspnea, Cough. 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 - Present Medications Home Medications: Ambulatory Orders Medication Instructions Recorded Confirmed DULoxetine [Cymbalta] 60 tab PO DAILY 08/10/18 09/02/19 Bupropion HCl [Wellbutrin Xl] 300 mg PO DAILY 03/09/19 09/02/19 Albuterol Sulfate [Albuterol 2 puffs IH QID #1 hfa.aer.ad 09/02/19 Sulfate Hfa] Amitriptyline HCl 10 mg PO DAILY PM 09/02/19 09/02/19 Benzonatate [Tessalon Perle] 100 - 200 mg PO TID PRN #30 capsule 09/02/19 Estradiol [[place] 0.1 mg] 1 each TD ONCE 09/02/19 09/02/19 dexAMETHasone [Decadron] 4 mg PO DAILY #5 tablet 09/02/19 - Allergies Allergies/Adverse Reactions: Allergies Allergy/AdvReac Type Severity Reaction Status Date / Time No Known Drug Allergies Allergy Verified 09/02/19 10:37 - Social History Does the pt smoke?: No Smoking Status: Never smoker Does the pt drink ETOH?: No Does the pt have substance abuse?: No - Immunizations Immunizations are current?: Yes - POLST Patient has POLST: No PD ED PE NORMAL - Vitals Vital signs reviewed: Yes - General General: Alert and oriented X 3, No acute distress, Well developed/nourished - HEENT HEENT: Moist mucous membranes, Pharynx benign - Neck Neck: Supple, no meningeal sign, No adenopathy - Cardiac Cardiac: RRR, No murmur - Respiratory Respiratory: No respiratory distress (but mild tachypnea). No: Clear bilate rally (prolonged exp phase, with exp wheezing. No coarse sounds. ) - Abdomen Abdomen: Soft, Non tender, Other (obese) Results - Vitals Vitals: Vital Signs - 24 hr 09/02/19 09/02/19 09/02/19 10:29 10:39 11:35 Temperature 36.1 C L 37.2 C Heart Rate 97 89 81 Respiratory 26 H 32 H 18 Rate Blood Pressure 126/63 127/79 O2 Saturation 100 99 09/02/19 12:22 Temperature 37.2 C Heart Rate 79 Respiratory 16 Rate Blood Pressure 105/88 H O2 Saturation 99 Oxygen O2 Source Room air - EKG (time done) 11:10 Rate: Rate (enter#) (79) Rhythm: NSR [place]: Normal Intervals: Normal [place] QRS: Normal Ischemia: Normal ST segments. No: ST elevation c/w ischemia, ST depression - Rads (name of study) chest xray Radiology: Prelim report reviewed (no acute process), See rad report PD MEDICAL DECISION MAKING - ED course Complexity details: considered differential (has significant wheeze component and no fevers, some cough. Seems likely more allergies or environmental. Certainly consider COVID early phase. Led to conundrum of steroid or not. I feel this is lower prob COVID (I know is hard to know clinically) so short course low dose steroid. Literature is not really clear that this type of dosing early is detrimental. ), d/w patient Departure - Departure Disposition: 01 Home, Self Care Clinical Impression: Dyspnea Qualifiers: Dyspnea type: shortness of breath Qualified Code(s): R06.02 - Shortness of breath Upper respiratory infection Qualifiers: URI type: unspecified URI Qualified Code(s): J06.9 - Acute upper respiratory infection, unspecified Condition: Stable Record reviewed to determine appropriate education?: Yes Instructions: ED URI Viral W Wheezing Prescriptions: Albuterol Sulfate [Albuterol Sulfate Hfa] 2 puffs IH QID #1 hfa.aer.ad Benzonatate [Tessalon Perle] 100 - 200 mg PO TID PRN #30 capsule PRN Reason: Cough dexAMETHasone [Decadron] 4 mg PO DAILY #5 tablet Comments: Your chest x-ray appears normal and your oxygenation is good. I think this may actually be more of a simple viral type illness or environmental irritation with some wheezing. Your coronavirus test should result in 2 to 3 days to ensure that is not part of it. Meanwhile did have you use the albuterol inhaler 2 puffs 4 times a day for the next several days to help with trouble breathing and wheezing. Tessalon if n eeded for cough. Decadron for inflammation of the airways. Tylenol or ibuprofen if needed for fevers or pains. Recheck if not improving well over the next few days. Work note for 3 days pending the coded test result. Forms: Activity restrictions Discharge Date/Time: 09/02/19 12:29
[2019-09-02] MEDS ORDERED: ALBUTEROL NEB 2.5 MG/3 ML INH STA (11:00)
[2019-09-02] MEDS ORDERED: diphenhydrAMINE 25 MG CAPSULE PO STA (11:01)
[2019-09-02] MEDS ORDERED: BENZONATATE 100 MG CAPSULE PO STA (11:01)
[2019-09-02] MEDS ORDERED: guaiFENesin/CODEINE 5 ML UDC PO STA (11:55)
[2019-09-02] MEDS ORDERED: CHERRY SYRUP 10 ML UDC PO ONE (11:55)
[2019-09-02] MEDS ORDERED: DEXAMETHASONE 10 MG/ML VIAL PO STA (11:55)
--- NOTE | 2019-09-02 12:07 | XRAY Report ---
Reason: cough and wheezing Procedure Date: 09/02/2019 Accession Number: [id number] / [id number] Procedure: XR - Chest 1 View X-Ray CPT Code: 69415 Final Report FULL RESULT: EXAM: CHEST RADIOGRAPHY EXAM DATE: 09/02/2019 11:35 AM. CLINICAL HISTORY: Cough and wheezing. COMPARISON: CHEST 1 VIEW 07/26/2019 3:51 PM. TECHNIQUE: 1 view. FINDINGS: Lungs/Pleura: No focal opacities evident. No pleural effusion. No pneumothorax. Mediastinum: Within exam limitations, the cardiomediastinal contour is normal. Other: None. IMPRESSION: No focal consolidation. RADIA
[2019-09-02 12:24] VITALS: BP 105/88
== END 2019-09-02 12:29 | disposition home or self-care (01) ==
LOC: ED 10:14
DX: J06.9 Acute upper respiratory infection, unspecified (principal); R06.02 Shortness of breath
CPT/HCPCS: 71045; 93005; 94640; 94664; 99284; A9270

== ENCOUNTER 2019-12-21 10:15 | Emergency (ER) | payer MEDICAID ==
--- NOTE | 2019-12-21 10:47 | XRAY Report ---
PROCEDURE: Wrist 4 View RT INDICATIONS: Trauma TECHNIQUE: 4 views of the wrist were acquired. COMPARISON: None FINDINGS: Bones: No fractures or dislocations. No suspicious bony lesions. Scaphoid view: Scaphoid is intact. Soft tissues: No suspicious soft tissue calcifications. IMPRESSION: No fracture. No osseous lesion. If there is continued clinical concern for pathology, then repeat colton in film radiographs (7-10 days) or advanced imaging (CT, MR, bone scan) should be considered for furt her evaluation. Reviewed by: Lesa Dickson MD, PhD on 12/21/2019 10:46 AM PDT Approved by: Lesa Dickson MD, PhD on 12/21/2019 10:46 AM PDT Station ID: [id number]
--- NOTE | 2019-12-21 12:32 | ED Physician Documentation ---
PD HPI UPPER EXT INJURY - Stated complaint Stated Complaint: RT WRIST PX - Chief complaint Chief Complaint: Ext Problem - History obtained from History obtained from: Patient - History of Present Illness Location: Right, Wrist Type of injury: Fall Where injury occurred: Home Timing - onset: Last night Timing - details: Abrupt onset Pain level max: 7 Pain level now: 5 Improved by: Rest, Ice, Immobilization Worsened by: Moving, Palpating Associated symptoms: Swelling, Discolored (Bruising). No: Weakness, Numbness, Tingling Contributing factors: No: Anticoagulated - Additonal information Additional information: 44-year-old female with a fall last night. Continued right wrist pain today. 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 : None HEENT: None Psych: Depression, Anxiety Musculoskeletal: Chronic back pain, Other Derm: None - Past Surgical History Past Surgical History: Yes General: Cholecystectomy 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, Rotator cuff repair, Other /CERAMIC TILE SETTER: Tubal ligation, 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 - Present Medications Home Medications: Ambulatory Orders Medication Instructions Recorded Confirmed DULoxetine [Cymbalta] 60 tab PO DAILY 08/10/18 09/02/19 Bupropion HCl [Wellbutrin Xl] 300 mg PO DAILY 03/09/19 09/02/19 Albuterol Sulfate [Albuterol 2 puffs IH QID #1 hfa.aer.ad 09/02/19 Sulfate Hfa] Amitriptyline HCl 10 mg PO DAILY PM 09/02/19 09/02/19 Benzonatate [Tessalon Perle] 100 - 200 mg PO TID PRN #30 capsule 09/02/19 Estradiol [Climara 0.1 mg] 1 each TD ONCE 09/02/19 09/02/19 dexAMETHasone [Decadron] 4 mg PO DAILY #5 tablet 09/02/19 - Allergies Allergies/Adverse Reactions: Allergies Allergy/AdvReac Type Severity Reaction Status Date / Time No Known Drug Allergies Allergy Verified 12/21/19 10:25 - Social History Does the pt smoke?: No Smoking Status: Never smoker Does the pt drink ETOH?: No Does the pt have substance abuse?: No - Immunizations Immunizations are current?: Yes - POLST Patient has POLST: No PD ED PE NORMAL - Vitals Vital signs reviewed: Yes - General General: Alert and oriented X 3, No acute distress - HEENT HEENT: Moist mucous membranes - Derm Derm: Warm and dry - Extremities Extremities: Other (Tender to palpation over the ulnar aspect of the right wrist. No tenderness over the anatomical snuffbox. No deformity. Full range of motion of the wrist. Small ecchymosis on the thenar eminence of the hand. Otherwise normal examination of the hand, wrist and elbow.) - 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 Results - Vitals Vitals: Vital Signs - 24 hr 12/21/19 10:25 Temperature 36.5 C Heart Rate 84 Respiratory 16 Rate Blood Pressure 151/104 H O2 Saturation 96 Oxygen O2 Source Room air - Rads (name of study) Right wrist x-ray Radiology: Prelim report reviewed, EMP read contemporaneously, See rad report (No acute abnormality) PD MEDICAL DECISION MAKING - ED course Complexity details: reviewed results, re-evaluated patient, considered differential, d/w patient ED course: 44-year-old female presents the emergency department after a fall onto the right wrist. Negative x-rays. Placed in a Velcro splint for comfort. No snuffbox tenderness. Patient counseled regarding signs and symptoms for which I believe and urgent re-evaluation would be necessary. Patient with good understanding of and agreement to plan and is comfortable going home at this time This document was made in part using voice recognition software. While efforts are made to proofread this document, sound alike and grammatical errors may occur. Departure - Departure Disposition: 01 Home, Self Care Clinical Impression: Sprain of wrist, right Qualifiers: Encounter type: initial encounter Qualified Code(s): S63.501A - Unspecified sprain of right wrist, initial encounter Condition: Good Instructions: ED Sprain Wrist Follow-Up: CATY DAUGHERTY DO [Primary Care Provider] - Within 1 week Comments: Your x-rays do not show any acute abnormalities today. Follow-up with your doctor in 1 week for repeat evaluation. Wear the splint as needed for comfort.
[2019-12-21 12:46] VITALS: BP 130/87
== END 2019-12-21 12:45 | disposition home or self-care (01) ==
LOC: ED 10:15
DX: S63.501A Unspecified sprain of right wrist, initial encounter (principal); S60.221A Contusion of right hand, initial encounter; W01.0XXA Fall on same level from slipping, tripping and stumbling without subsequent striking against object, initial encounter; Y92.009 Unspecified place in unspecified non-institutional (private) residence as the place of occurrence of the external cause
CPT/HCPCS: 99283; 99284

== ENCOUNTER 2020-01-20 02:54 | Emergency (ER) | payer MEDICAID ==
--- NOTE | 2020-01-20 02:58 | ED Physician Documentation ---
History of Present Illness - Stated complaint Stated Complaint: SORE THROAT/COUGH - History obtained from History obtained from: Patient - Additonal information Additional information: 44 y/o f w cc of sore throat, barking cough that woke her from sleep. denies hx of IDD. denies cp, syncope, reports low grade fevers. 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: Tubal ligation, 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 - Present Medications Home Medications: Ambulatory Orders Medication Instructions Recorded Confirmed DULoxetine [Cymbalta] 60 tab PO DAILY 08/10/18 01/20/20 Bupropion HCl [Wellbutrin Xl] 300 mg PO DAILY 03/09/19 01/20/20 Albuterol Sulfate [Albuterol 2 puffs IH QID #1 hfa.aer.ad 09/02/19 01/20/20 Sulfate Hfa] Estradiol [Climara 0.1 mg] 1 each TD ONCE 09/02/19 01/20/20 - Allergies Allergies/Adverse Reactions: Allergies Allergy/AdvReac Type Severity Reaction Status Date / Time No Known Drug Allergies Allergy Verified 12/21/19 10:25 - Social History Does the pt smoke?: No Smoking Status: Never smoker Does the pt drink ETOH?: No Does the pt have substance abuse?: No - Immunizations Immunizations are current?: Yes - POLST Patient has POLST: No Results - Vitals Vitals: Vital Signs - 24 hr 01/20/20 01/20/20 03:00 04:37 Temperature 37.1 C 37.0 C Heart Rate 99 93 Respiratory 18 16 Rate Blood Pressure 150/94 H 142/97 H O2 Saturation 98 98 Oxygen O2 Source Room air - Labs Labs: Laboratory Tests 01/20/20 01/20/20 03:05 04:19 Influenza A (Rapid) Negative Influenza B (Rapid) Negative Group A Strep Rapid Negative PD MEDICAL DECISION MAKING - ED course ED course: 44-year-old female who is otherwise healthy who is employee here at the [employer] has had a 1 day history of cough now laryngitis bilateral ear pain and sore throat her strep is negative COVID's pending rapid flu is pending as well chest x-ray is negative.Patient was treated with oral Decadron she is afebrile no hypoxia no respiratory distress no wheezing. She has an appointment scheduled within the next 24 hours with her primary care provider if she has any worsening symptoms to include shortness of breath or wheezing she should return to the emergency department immediately. Patient is agreeable to this plan. Departure - Departure Disposition: 01 Home, Self Care Clinical Impression: Laryngitis, Viral illness Condition: Stable Instructions: ED Laryngitis, ED Viral Syndrome Follow-Up: Anel Tyler ARNP [Primary Care Provider] - Tomorrow Comments: Hydrate well, take either Tylenol or ibuprofen as needed for pain or fever. Follow-up with your primary care provider as scheduled on Tuesday. Discharge Date/Time: 01/20/20 04:39
[2020-01-20] MEDS ORDERED: DEXAMETHASONE 10 MG/ML VIAL PO STA (03:09)
[2020-01-20] MEDS ORDERED: CHERRY SYRUP 10 ML UDC PO ONE (03:09)
[2020-01-20 03:23] LABS: RAPID STREP SCREEN Negative (Negative)
[2020-01-20 04:40] VITALS: BP 142/97
--- NOTE | 2020-01-20 08:45 | XRAY Report ---
PROCEDURE: Chest 1 View X-Ray INDICATIONS: cough TECHNIQUE: One view of the chest was acquired. COMPARISON: 09/02/2019, 07/26/2019, 02/02/2019. Correlation is also made with chest CT 06/20/2019 FINDINGS: Surgical changes and devices: Cervical spine fixation hardware is seen. Lungs and pleura: No pleural effusions or pneumothorax. Lungs are clear. Mediastinum: Mediastinal contours appear normal. Heart size is at the upper limits of normal. Bones and chest wall: No suspicious bony lesions. Age-appropriate degenerative changes are seen. Overlying soft tissues appear unremarkable. IMPRESSION: Portable chest without an acute abnormality identified. No focal infiltrates. Note: No significant discrepancy from the preliminary report. Reviewed by: Hima Miller MD on 01/20/2020 7:43 AM GANESH Approved by: Hima Miller MD on 01/20/2020 7:43 AM GANESH Station ID: [id number]
== END 2020-01-20 04:39 | disposition home or self-care (01) ==
LOC: ED 02:54
DX: J04.0 Acute laryngitis (principal); B97.89 Other viral agents as the cause of diseases classified elsewhere; Z20.828 Contact with and (suspected) exposure to other viral communicable diseases
CPT/HCPCS: 71045; 87070; 87275; 87276; 87430; 87635; 99281; 99284; A9270

== ENCOUNTER 2020-02-12 17:15 | Outpatient (CLI) | payer MEDICAID | END 2020-02-12 17:16 | disposition critical access hospital (66) | LOC: EMS 17:15 | PROVIDERS: ATTEND Surgery | DX: M25.572 Pain in left ankle and joints of left foot (principal); W01.0XXA Fall on same level from slipping, tripping and stumbling without subsequent striking against object, initial encounter; Y93.01 Activity, walking, marching and hiking; Y92.480 Sidewalk as the place of occurrence of the external cause | CPT/HCPCS: A0425; A0427 ==

== ENCOUNTER 2020-02-12 17:33 | Emergency (ER) | payer MEDICAID ==
--- NOTE | 2020-02-12 18:20 | XRAY Report ---
PROCEDURE: Ankle 3 View LT INDICATIONS: Trauma TECHNIQUE: 3 views of the ankle were acquired. COMPARISON: None FINDINGS: Bones: No fractures or dislocations. Ankle mortise is normally aligned. No suspicious bony lesions . Soft tissues: No tibiotalar joint effusion. Achilles tendon appears normal. IMPRESSION: No visualized acute fracture or dislocation. However, occult injury cannot be excluded. Recommend short interval imaging follow-up in 7-10 days as clinically indicated for additional evalua tion. Reviewed by: Dang Abreu MD on 02/12/2020 6:19 PM PDT Approved by: Dang Abreu MD on 02/12/2020 6:19 PM PDT Station ID: [id number]
[2020-02-12] MEDS ORDERED: KETOROLAC 60 MG/2 ML VIAL IM STA (18:27)
[2020-02-12] MEDS ORDERED: HYDROcod/ACETAM 5/325 MG TABLET PO STA (18:28)
--- NOTE | 2020-02-12 18:35 | ED Physician Documentation ---
History of Present Illness - Stated complaint Stated Complaint: GLF - Chief complaint Chief Complaint: Trauma Ext - Additonal information Additional information: Female presents the emergency department with acute onset left heel ankle pain f ollowing a ground-level fall this afternoon. She reports tripping on a concrete curb. She felt immediate pain in the posterior ankle and has been unable to bear weight since. She presents with an Aircast splint in place. Foot or ankle Review of Systems Constitutional: denies: Fever, Chills Eyes: denies: Loss of vision Ears: denies: Loss of hearing, Ear pain Throat: reports: Reviewed and negative Cardiac: reports: Reviewed and negative Respiratory: reports: Reviewed and negative GI: reports: Reviewed and negative : reports: Reviewed and negative Musculoskeletal: reports: Extremity pain, Joint pain. 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 : None HEENT: None Psych: Depression, Anxiety Musculoskeletal: Chronic back pain, Other Derm: None - Past Surgical History Past Surgical History: Yes General: Cholecystectomy 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, Rotator cuff repair, Other /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: Tubal ligation, 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 - Present Medications Home Medications: Ambulatory Orders Medication Instructions Recorded Confirmed DULoxetine [Cymbalta] 60 tab PO DAILY 08/10/18 01/20/20 Bupropion HCl [Wellbutrin Xl] 300 mg PO DAILY 03/09/19 01/20/20 Albuterol Sulfate [Albuterol 2 puffs IH QID #1 hfa.aer.ad 09/02/19 01/20/20 Sulfate Hfa] Estradiol [Climara 0.1 mg] 1 each TD ONCE 09/02/19 01/20/20 Hydrocodone/Acetaminophen 1 each PO BID PRN #15 tablet 02/12/20 [Hydrocodone-Acetamin 5-325 mg] Ibuprofen [Motrin] 600 mg PO Q6H PRN #30 tab 02/12/20 lamoTRIgine [LaMICtal] 25 mg PO QPM 02/12/20 02/12/20 - Allergies Allergies/Adverse Reactions: Allergies Allergy/AdvReac Type Severity Reaction Status Date / Time No Known Drug Allergies Allergy Verified 02/12/20 17:37 - Social History Does the pt smoke?: No Smoking Status: Never smoker Does the pt drink ETOH?: No Does the pt have substance abuse?: No - Immunizations Immunizations are current?: Yes - POLST Patient has POLST: No PD ED PE EXPANDED - General General: Alert, Anxious, In Pain - Extremities Extremities: Left ankle (Left foot held in forward flexion. Unable to Dorsi flex the left ankle. Pain with palpation at the bottom of the heel. The Achilles tendon is soft and not palpable. ) Results - Vitals Vitals: Vital Signs - 24 hr 02/12/20 17:35 Temperature 37.2 C Heart Rate 98 Respiratory 18 Rate Blood Pressure 140/88 H O2 Saturation 98 Oxygen O2 Source Room air - Rads (name of study) left ankle Radiology: Final report received (No acute fracture or dislocation.) PD MEDICAL DECISION MAKING - ED course Complexity details: reviewed results, considered differential, d/w patient ED course: 44-year-old female presents to the emergency department with acute left ankle pain in the posterior region after a ground-level fall this afternoon. On exam I suspect that she has a nearly complete Achilles tendon rupture. The tendon itself is boggy and not palpable. The foot is held in forward flexion and she is unable to dorsi flex the foot. She is placed in a short leg posterior splint that was also in equinus position to avoid further stretching of the Achilles. I spoke with on-call orthopedic doctor at [facility]. He would like to see her in clinic on or Tuesday. Instructions to return phone call and follow-u p were discussed Departure - Departure Disposition: 01 Home, Self Care Clinical Impression: Achilles rupture, left Qualifiers: Encounter type: initial encounter Qualified Code(s): S86.012A - Strain of left Achilles tendon, initial encounter Condition: Stable Record reviewed to determine appropriate education?: Yes Instructions: Rupture Achilles Tendon Follow-Up: Selvin Kulkarni MD [Provider Admit Priv/Credential] - Within 3 Days Prescriptions: Hydrocodone/Acetaminophen [Hydrocodone-Acetamin 5-325 mg] 1 each PO BID PRN #15 tablet PRN Reason: Pain Ibuprofen [Motrin] 600 mg PO Q6H PRN #30 tab PRN Reason: Pain Comments: Claudine unfortunately you have a ruptured your left Achilles tendon. We have placed you in a splint that is to remain in place until you see the orthopedics doctor this or Tuesday. I would like you to call tomorrow and ask to speak with Daisy at the [facility] on [address] Dr. Mccabe would like to see you in follow-up on or Tuesday. Please do not place weight on your left leg and use the crutches for ambulation. I would like you to take ibuprofen for pain and the [place] for severe pain only. Do not drive if taking [place] it may impair your ability to operate a vehicle.
[2020-02-12 19:03] VITALS: BP 138/100
== END 2020-02-12 19:13 | disposition home or self-care (01) ==
LOC: EDUNIT# → ED 17:33
DX: S86.012A Strain of left Achilles tendon, initial encounter (principal); W01.0XXA Fall on same level from slipping, tripping and stumbling without subsequent striking against object, initial encounter; Y92.512 Supermarket, store or market as the place of occurrence of the external cause
CPT/HCPCS: 29515; 73610; 96372; 99283; A9270

== ENCOUNTER 2020-05-12 14:40 | Outpatient (CLI) | payer MEDICAID ==
--- NOTE | 2020-05-12 17:05 | CT Report ---
PROCEDURE: CERVICAL SPINE WO INDICATIONS: CERVICAL RADICULOPATHY TECHNIQUE: Noncontrast 3 mm thick sections acquired from the skull base to the T4 level. Sagittal and coronal r eformats were then constructed. For radiation dose reduction, the following was used: automated exp osure control, adjustment of mA and/or kV according to patient size. COMPARISON: None. FINDINGS: Image quality: Degraded by beam hardening artifact related to metallic orthopedic hardware. Bones: Postsurgical changes compatible C4-C7 ACDF noted. Orthopedic hardware is intact. No lucencies identified at the bone-hardware interface. No fractures or dislocations. Visualized superior ribs a re intact. C2-C3: Slight loss of disc height. Mild right facet hypertrophy. No central stenosis. No neural akshat inal narrowing. No neural compression. C3-C4: Loss of disc height. Mild, diffuse disc bulge. Mild bilateral facet hypertrophy. No central st enosis. Mild bilateral neural foraminal narrowing. No neural compression. C4-C5: Status post discectomy and fusion. No central stenosis. Mild bilateral facet hypertrophy. Mild bilateral uncovertebral joint hypertrophy. Moderate right and mild left neural foraminal narrowing. No neural compression. C5-C6: Status post discectomy and fusion. No central stenosis. Mild bilateral facet hypertrophy. Mild bilateral uncovertebral joint hypertrophy. Moderate to severe right neural foraminal narrowing with slight compression of the exiting right C6 nerve root. Left neural foramen is fully patent. C6-C7: Status post discectomy and fusion. No central stenosis. Mild bilateral facet hypertrophy. Mild bilateral neural foraminal narrowing. No neural compression. C7-T1: Loss of disc height. No central stenosis. Mild bilateral facet hypertrophy. Severe right and m oderate left neural foraminal narrowing with slight compression of the exiting left C8 nerve root. Soft tissues: Prevertebral soft tissues are normal in thickness. No paravertebral hematomas. No ap ical pneumothoraces. IMPRESSION: 1. Status post C4-C7 ACDF. 2. Multilevel degenerative disease. 3. Multilevel facet and uncovertebral arthropathy. 3. No central stenosis. 4. Moderate to severe right C5-C6 neural foraminal narrowing with slight compression of the exiting r ight C6 nerve root. Severe right C7-T1 neural foraminal narrowing with slight compression of the exit ing right C8 nerve root. Reviewed by: Lesa Dickson MD, PhD on 05/12/2020 5:04 PM PST Approved by: Lesa Dickson MD, PhD on 05/12/2020 5:04 PM PST Station ID: [id number]
== END 2020-05-12 14:41 | disposition home or self-care (01) ==
LOC: DI 14:40
PROVIDERS: ATTEND Family Medicine
DX: M50.10 Cervical disc disorder with radiculopathy, unspecified cervical region (principal); Z98.1 Arthrodesis status
CPT/HCPCS: 72125

== ENCOUNTER 2020-05-25 12:57 | Outpatient (CLI) | payer MEDICAID ==
--- NOTE | 2020-05-25 16:18 | XRAY Report ---
PROCEDURE: Chest 2 View X-Ray INDICATIONS: ACUTE UPPER RESPIRATORY INFECTION TECHNIQUE: 2 view(s) of the chest. COMPARISON: None. FINDINGS: Surgical changes and devices: Fusion hardware in lower cervical spine is seen.. Lungs and pleura: No pleural effusions or pneumothorax. Lungs are clear. Mediastinum: Mediastinal contours are normal. Heart size is normal. Bones and chest wall: No suspicious bony abnormalities. Soft tissues appear unremarkable. IMPRESSION: No acute cardiopulmonary pathology. Reviewed by: Dane Andino MD on 05/25/2020 4:16 PM PST Approved by: Dane Andino MD on 05/25/2020 4:16 PM PST Station ID: [id number]
== END 2020-05-25 23:59 | disposition home or self-care (01) ==
LOC: DI.N 12:57
PROVIDERS: ATTEND Nurse Practitioner
DX: J06.9 Acute upper respiratory infection, unspecified (principal); J02.9 Acute pharyngitis, unspecified; Z20.828 Contact with and (suspected) exposure to other viral communicable diseases
CPT/HCPCS: 87070; 87077; 87275; 87276

== ENCOUNTER 2020-06-04 04:58 | Emergency (ER) | payer MEDICAID ==
[2020-06-04 06:15] LABS: BASOPHILS % (AUTO) 0.4 %; EOSINOPHILS # (AUTO) 0.1 10^3/uL (0.0-0.7); EOSINOPHILS % (AUTO) 1.1 %; HGB - HEMOGLOBIN 14.7 g/dL (12.0-16.0); LYMPHOCYTES # (AUTO) 2.5 10^3/uL (1.5-3.5); LYMPHOCYTES % (AUTO) 30.5 %; MEAN CORPUSCULAR VOLUME 97.2 fL (81.0-99.0); MEAN PLATELET VOLUME 9.3 fL (7.9-10.8); MONOCYTES # (AUTO) 0.6 10^3/uL (0.0-1.0); MONOCYTES % (AUTO) 6.9 %; NEUTROPHILS # (AUTO) 4.9 10^3/uL (1.5-6.6); NEUTROPHILS % (AUTO) 60.7 %; PLT - PLATELET COUNT 291 10^3/uL (130-450); RED BLOOD COUNT 4.59 10^6/uL (4.20-5.40); RED CELL DISTRIBUTION WIDTH 12.8 % (12.0-15.0); WHITE BLOOD COUNT 8.1 x10^3/uL (4.8-10.8)
[2020-06-04 06:27] LABS: ALBUMIN 4.2 g/dL (3.2-5.5); ALBUMIN/GLOBULIN RATIO 1.3 (1.0-2.2); BILIRUBIN,TOTAL 0.5 mg/dL (0.2-1.0); CALCIUM 9.2 mg/dL (8.5-10.3); CREATININE 0.7 mg/dL (0.4-1.0); TOTAL PROTEIN 7.5 g/dL (6.7-8.2)
[2020-06-04 06:51] LABS: BILIRUBIN,URINE NEGATIVE (NEGATIVE); GLUCOSE, URINE (UA) NEGATIVE (NEGATIVE); KETONES,URINE (UA) NEGATIVE (NEGATIVE); LEUKOCYTE ESTERASE, URINE NEGATIVE (NEGATIVE); NITRITE,URINE NEGATIVE (NEGATIVE); OCCULT BLOOD,URINE NEGATIVE (NEGATIVE); PH,URINE 5.5 PH (5.0-7.5); PROTEIN,URINE NEGATIVE (NEGATIVE); UROBILINOGEN,URINE 0.2 (NORMAL) E.U./dL (NORMAL)
[2020-06-04 06:53] LABS: CLARITY,URINE CLEAR (CLEAR)
[2020-06-04 06:54] LABS: HCG UR QUAL NEGATIVE
[2020-06-04] MEDS ORDERED: SODIUM CHLORIDE 0.9% 1,000 ML IV STA ×2 (07:26→07:27)
[2020-06-04] MEDS ORDERED: ONDANSETRON 4 MG/2 ML VIAL IVP STA (07:26)
[2020-06-04] MEDS ORDERED: FAMOTIDINE 20 MG/2 ML VIAL IVP STA (07:27)
[2020-06-04] MEDS ORDERED: HYDROmorphone 1 MG/ML CARPUJECT IVP STA ×2 (07:27→09:26)
[2020-06-04] MEDS ORDERED: cefTRIAXone 1 GM VIAL IVP STA (07:33)
[2020-06-04] MEDS ORDERED: IOVERSOL 320 100 ML VIAL IVP ONE ×2 (07:52→13:04)
--- NOTE | 2020-06-04 09:18 | CT Report ---
PROCEDURE: Abdomen/Pelvis W INDICATIONS: LUQ abd pain and vomiting/diarrhea for days CONTRAST: IV CONTRAST: Optiray 320 ml: 100 PO CONTRAST: *NO PO CONTRAST TECHNIQUE: After the administration of intravenous contrast, 5 mm thick sections acquired from the diaphragms to the symphysis. 5 mm thick coronal and sagittal reformats were acquired. For radiation dose reducti on, the following was used: automated exposure control, adjustment of mA and/or kV according to jj ent size. COMPARISON: CT abdomen/pelvis 08/15/2019 FINDINGS: Image quality: Excellent. ABDOMEN: Lung bases: Lung bases are clear. Heart size is normal. Solid organs: There is mild diffuse fatty infiltration of the liver. Small subcentimeter foci of hyp erenhancement are seen in the left hepatic lobe (images 13 and 15 of series 3). Status post cholecyst ectomy. The spleen is normal in size. A surgical clip is noted along the inferior border of the splee n. Biliary system is non dilated. Pancreas enhances normally. No adrenal nodules. Kidneys demonstr ate normal size and enhancement, without hydronephrosis. Peritoneum and bowel: Bowel loops demonstrate normal wall thickness and caliber. Normal appendix. N o free fluid or air. A surgical clip is seen in the left posterior peritoneal cavity at the level of the iliac crest. Nodes and vessels: No retroperitoneal or mesenteric adenopathy by size criteria. Aorta and inferior vena cava are normal in size. Miscellaneous: No ventral hernias. PELVIS: Genitourinary: Bladder wall thickness is normal. Status post hysterectomy. Miscellaneous: No inguinal hernias or adenopathy. Bones: No suspicious bony lesions. No vertebral body compression fractures. Focal degenerative mario nges are seen in spine at the L5-S1 level. IMPRESSION: 1. No acute abnormality is identified in the abdomen pelvis. Normal appendix. 2. Mild diffuse hepatic steatosis. 3. Two subcentimeter foci of hyperenhancement are seen in the left hepatic lobe, which are most like ly secondary to a benign etiology such as areas of perfusion alteration or flash filling hemangiomas. Metastatic disease is felt to be unlikely. However, consider dedicated liver protocol MRI or CT in a pproximately 3 months for further evaluation if clinically indicated. Reviewed by: Brain Mendez MD on 06/04/2020 9:16 AM PST Approved by: Brain Mendez MD on 06/04/2020 9:16 AM PST Station ID: [id number]
[2020-06-04 09:29] LABS: C. PNEUMONIAE- RESP PCR PANEL NOT DETECTED
[2020-06-04] MEDS ORDERED: MAG HYDROX/AL HYDROX/SIMETH 30 ML UDC PO STA (09:37)
[2020-06-04] MEDS ORDERED: DEXAMETHASONE 10 MG/ML VIAL IVP STA (10:12)
[2020-06-04] MEDS ORDERED: DIPHENOX/ATROPINE 2.5/0.025 MG TABLET PO STA (10:13)
--- NOTE | 2020-06-04 10:44 | ED Physician Documentation ---
PD HPI NVD - Stated complaint Stated Complaint: FEVER, NAUSEA - Chief complaint Chief Complaint: General - History obtained from History obtained from: Patient - History of Present Illness Timing - onset: How many weeks ago (2) Timing - duration: Weeks (2) Timing - details: Still present Associated symptoms: Fever, Abdominal pain (LUQ mostly), Loss of appetite, Other (general weakness) Contributing factors: No: Sick contact, Bad food, Travel, Recent antibiotics Improved by: No: Eating, BM (abd cramping is improved after diarrhea, but still pain LUQ fairly often.) Worsened by: Eating Similar symptoms before: Has not had sx before Recently seen: Clinic (walk in clinic couple weeks ago with fever and sore throat. Had throat test with neg rapid strep, but culture grew Group C strep. Neg COVID test then. went back to Walk In and was told she did not need treatment. Has continued with sore throat, feverish, nausea, but also now a week of diarrhea.) Review of Systems Constitutional: reports: Fever, Chills, Myalgias Nose: denies: Rhinorrhea / runny nose, Congestion Throat: reports: Sore throat Cardiac: denies: Chest pain / pressure Respiratory: denies: Dyspnea, Cough GI: reports: Abdominal Pain, Nausea, Vomiting, Diarrhea (not initially, had sore throat and fever at first. Diarrhea and cramps the past week.) : denies: Dysuria, Frequency Skin: denies: Rash, Lesions Musculoskeletal: denies: Neck pain, Back pain Neurologic: reports: Generalized weakness. 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 : None HEENT: None Psych: Depression, Anxiety Musculoskeletal: Chronic back pain, Other Derm: None - Past Surgical History Past Surgical History: Yes General: Cholecystectomy 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, Rotator cuff repair, Other /JOGGER OPERATOR: Tubal ligation, 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 - Present Medications Home Medications: Ambulatory Orders Medication Instructions Recorded Confirmed DULoxetine [Cymbalta] 60 tab PO DAILY 08/10/18 01/20/20 Bupropion HCl [Wellbutrin Xl] 300 mg PO DAILY 03/09/19 01/20/20 Albuterol Sulfate [Albuterol 2 puffs IH QID #1 hfa.aer.ad 09/02/19 01/20/20 Sulfate Hfa] Estradiol [Climara 0.1 mg] 1 each TD ONCE 09/02/19 01/20/20 Ibuprofen [Motrin] 600 mg PO Q6H PRN #30 tab 02/12/20 lamoTRIgine [LaMICtal] 25 mg PO QPM 02/12/20 02/12/20 Cephalexin [Keflex] 500 mg PO TID #20 capsule 06/04/20 Diphenoxylate/Atropine [Lomotil] 1 each PO QID PRN #12 tablet 06/04/20 Famotidine [Pepcid] 20 mg PO DAILY #20 tablet 06/04/20 HYDROcod/ACETAM 5/325 [Ulmer 5/325] 1 ea PO Q6H PRN #15 tablet 06/04/20 L.acid/L.casei/B.bif/B.sheeba/Fos 1 each PO BID #20 capsule 06/04/20 [Probiotic Blend Capsule] Promethazine [Phenergan] 25 mg PO Q6H PRN #10 tab 06/04/20 - Allergies Allergies/Adverse Reactions: Allergies Allergy/AdvReac Type Severity Reaction Status Date / Time No Known Drug Allergies Allergy Verified 02/12/20 17:37 - Social History Does the pt smoke?: No Smoking Status: Never smoker Does the pt drink ETOH?: No Does the pt have substance abuse?: No - Immunizations Immunizations are current?: Yes - POLST Patient has POLST: No PD ED PE NORMAL - Vitals Vital signs reviewed: Yes - General General: Alert and oriented X 3, Well developed/nourished - HEENT HEENT: No: Moist mucous membranes, Pharynx benign (redness with some swelling of tonsils both sides. No peritonsillar swelling. ) - Neck Neck: Supple, no meningeal sign, Other (anterior adenopathy bilaterally) - Cardiac Cardiac: RRR (tachycardic), No murmur - Respiratory Respiratory: Clear bilaterally - Abdomen Abdomen: Normal bowel sounds, Soft, Non distended, No organomegaly, Other (tender LUQ and epigastric area with guarding and mild perfcussion tender. No rebound. ) - Female Female : Deferred - Rectal Rectal: Deferred - Back Back: No CVA TTP - Derm Derm: Normal color, Warm and dry, No rash - Extremities Extremities: No tenderness to palpate, Normal ROM s pain, No edema, No calf tenderness / cord - 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, No motor deficit, Normal speech Results - Vitals Vitals: Vital Signs - 24 hr 06/04/20 06/04/20 06/04/20 05:06 06:43 07:30 Temperature 36.7 C 36.7 C Heart Rate 108 H 99 85 Respiratory 16 16 18 Rate Blood Pressure 134/105 H 133/92 H 117/75 O2 Saturation 98 98 97 06/04/20 06/04/20 06/04/20 08:00 08:35 09:00 Temperature Heart Rate 89 89 85 Respiratory 16 16 16 Rate Blood Pressure 105/49 L 121/66 139/88 H O2 Saturation 98 97 97 06/04/20 06/04/20 06/04/20 09:30 10:49 11:10 Temperature Heart Rate 90 90 90 Respiratory 16 16 16 Rate Blood Pressure 140/87 H 137/93 H 130/84 H O2 Saturation 97 97 96 Oxygen O2 Source Room air - Labs Labs: Laboratory Tests 06/04/20 06/04/20 06/04/20 06:11 06:11 06:40 WBC 8.1 RBC 4.59 Hgb 14.7 Hct 44.6 MCV 97.2 MCH 32.0 H MCHC 33.0 RDW 12.8 Plt Count 291 MPV 9.3 Neut # (Auto) 4.9 Lymph # (Auto) 2.5 [place] # (Auto) 0.6 Eos # (Auto) 0.1 Baso # (Auto) 0.0 Absolute Nucleated RBC 0.00 Nucleated RBC % 0.0 Sodium 135 Potassium 4.0 Chloride 102 Carbon Dioxide 23 Anion Gap 10.0 BUN 17 Creatinine 0.7 Estimated GFR (MDRD) 90 Glucose 135 H Calcium 9.2 Total Bilirubin 0.5 AST 18 ALT 24 Alkaline Phosphatase 96 Total Protein 7.5 Albumin 4.2 Globulin 3.3 Albumin/Globulin Ratio 1.3 Lipase 24 Urine Color YELLOW Urine Clarity CLEAR Urine pH 5.5 Ur Specific [place] >=1.030 H Urine Protein NEGATIVE Urine Glucose (UA) NEGATIVE Urine Ketones NEGATIVE Urine Occult Blood NEGATIVE Urine Nitrite NEGATIVE Urine Bilirubin NEGATIVE Urine Urobilinogen 0.2 (NORMAL) Ur Leukocyte Esterase NEGATIVE Ur Microscopic Review NOT INDICATED Urine Culture Comments NOT INDICATED Urine HCG, Qual Nasal Adenovirus (PCR) Nasal B. parapertussis DNA (PCR) Nasal Coronavir 229E PCR Nasal Coronavir HKU1 PCR Nasal Coronavir NL63 PCR Nasal Coronavir OC43 PCR Nasal Enterovir/Rhinovir PCR Nasal Influenza B PCR Nasal Influenza A PCR Nasal Parainfluen 1 PCR Nasal Parainfluen 2 PCR Nasal Parainfluen 3 PCR Nasal Parainfluen 4 PCR Nasal RSV (PCR) Nasal B.pertussis DNA PCR Nasal C.pneumoniae (PCR) Tan Human Metapneumo PCR Nasal M.pneumoniae (PCR) Nasal SARS-CoV-2 (PCR) 06/04/20 06/04/20 06:40 08:16 WBC RBC Hgb Hct MCV MCH MCHC RDW Plt Count MPV Neut # (Auto) Lymph # (Auto) [place] # (Auto) Eos # (Auto) Baso # (Auto) Absolute Nucleated RBC Nucleated RBC % Sodium Potassium Chloride Carbon Dioxide Anion Gap BUN Creatinine Estimated GFR (MDRD) Glucose Calcium Total Bilirubin AST ALT Alkaline Phosphatase Total Protein Albumin Globulin Albumin/Globulin Ratio Lipase Urine Color Urine Clarity Urine pH Ur Specific [place] Urine Protein Urine Glucose (UA) Urine Ketones Urine Occult Blood Urine Nitrite Urine Bilirubin Urine Urobilinogen Ur Leukocyte Esterase Ur Microscopic Review Urine Culture Comments Urine HCG, Qual NEGATIVE Nasal Adenovirus (PCR) NOT DETECTED Nasal B. parapertussis DNA (PCR) NOT DETECTED Nasal Coronavir 229E PCR NOT DETECTED Nasal Coronavir HKU1 PCR NOT DETECTED Nasal Coronavir NL63 PCR NOT DETECTED Nasal Coronavir OC43 PCR NOT DETECTED Nasal Enterovir/Rhinovir PCR NOT DETECTED Nasal Influenza B PCR NOT DETECTED Nasal Influenza A PCR NOT DETECTED Nasal Parainfluen 1 PCR NOT DETECTED Nasal Parainfluen 2 PCR NOT DETECTED Nasal Parainfluen 3 PCR NOT DETECTED Nasal Parainfluen 4 PCR NOT DETECTED Nasal RSV (PCR) NOT DETECTED Nasal B.pertussis DNA PCR NOT DETECTED Nasal C.pneumoniae (PCR) NOT DETECTED Tan Human Metapneumo PCR NOT DETECTED Nasal M.pneumoniae (PCR) NOT DETECTED Nasal SARS-CoV-2 (PCR) NOT DETECTED - Rads (name of study) abd/pelvic CT Radiology: Prelim report reviewed (no acute process), See rad report PD MEDICAL DECISION MAKING - ED course Complexity details: reviewed results, re-evaluated patient (improved with IV fluids and meds. ), considered differential (seems strange to not treat positive throat culture. Still with symptoms of sore throat and feverish, nausea. The diarrhea though does not fit with that. She also has marked tender LUQ. Consider also gastritis, diverticulitis, perforation, or splenic process. Can get CT to eval abd pain/tender.), d/w patient Departure - Departure Disposition: 01 Home, Self Care Clinical Impression: Dehydration, Nausea vomiting and diarrhea, Strep pharyngitis Acute gastritis Qualifiers: Gastritis type: unspecified gastritis Gastritis bleeding: without bleeding Qualified Code(s): K29.00 - Acute gastritis without bleeding Condition: Stable Record reviewed to determine appropriate education?: Yes Follow-Up: Anel Tyler ARNP [Primary Care Provider] - Prescriptions: Cephalexin [Keflex] 500 mg PO TID #20 capsule Diphenoxylate/Atropine [Lomotil] 1 each PO QID PRN #12 tablet PRN Reason: Diarrhea HYDROcod/ACETAM 5/325 [Ulmer 5/325] 1 ea PO Q6H PRN #15 tablet PRN Reason: Pain Famotidine [Pepcid] 20 mg PO DAILY #20 tablet Promethazine [Phenergan] 25 mg PO Q6H PRN #10 tab PRN Reason: Nausea / Vomiting L.acid/L.casei/B.bif/B.sheeba/Fos [Probiotic Blend Capsule] 1 each PO BID #20 capsule Comments: It would seem some your symptoms relate to likely persistent group see strep infection we can treat that with cephalexin as directed for a week. You likely also have some irritation of the stomach called gastritis and we can treat the nausea with promethazine and also does take some acid reducing medicine famotidine as directed. Lomotil as needed for the diarrhea. Tylenol or hydrocodone if needed for stomach pain cramps. I would also suggest adding a probiotic twice daily for the next week to 10 days as well to try to help with the diarrhea and any side effects from the antibiotics. Off work for the next 2 to 3 days. Recheck if not improving well over the next 2 to 3 days. Forms: Activity restrictions Discharge Date/Time: 06/04/20 11:12
[2020-06-04 11:23] VITALS: BP 130/84
== END 2020-06-04 11:12 | disposition home or self-care (01) ==
LOC: ED 04:58
DX: K29.00 Acute gastritis without bleeding (principal); E86.0 Dehydration; J02.0 Streptococcal pharyngitis; B95.4 Other streptococcus as the cause of diseases classified elsewhere; Z20.828 Contact with and (suspected) exposure to other viral communicable diseases
CPT/HCPCS: 0202U; 36415; 74177; 80053; 81003; 81025; 83690; 85025; 96361; 96374; 96375; 96376; 99284; 99285; A9270; J1170; Q9967; 81001; 87086

== ENCOUNTER 2020-06-23 12:24 | Outpatient (CLI) | payer MEDICAID ==
[2020-06-23 13:02] LABS: BASOPHILS % (AUTO) 0.4 %; EOSINOPHILS # (AUTO) 0.1 10^3/uL (0.0-0.7); EOSINOPHILS % (AUTO) 1.3 %; HGB - HEMOGLOBIN 12.6 g/dL (12.0-16.0); LYMPHOCYTES # (AUTO) 2.4 10^3/uL (1.5-3.5); LYMPHOCYTES % (AUTO) 42.9 %; MEAN CORPUSCULAR HEMOGLOBIN 31.9 pg (27.0-31.0); MEAN CORPUSCULAR HGB CONC 32.8 g/dL (32.0-36.0); MEAN CORPUSCULAR VOLUME 97.2 fL (81.0-99.0); MEAN PLATELET VOLUME 9.6 fL (7.9-10.8); MONOCYTES # (AUTO) 0.4 10^3/uL (0.0-1.0); MONOCYTES % (AUTO) 7.3 %; NEUTROPHILS # (AUTO) 2.7 10^3/uL (1.5-6.6); NEUTROPHILS % (AUTO) 47.9 %; PLT - PLATELET COUNT 255 10^3/uL (130-450); RED BLOOD COUNT 3.95 10^6/uL (4.20-5.40); RED CELL DISTRIBUTION WIDTH 13.2 % (12.0-15.0); WHITE BLOOD COUNT 5.6 x10^3/uL (4.8-10.8)
[2020-06-23 13:21] LABS: ALBUMIN 4.4 g/dL (3.2-5.5); ALBUMIN/GLOBULIN RATIO 1.4 (1.0-2.2); ALKALINE PHOSPHATASE 67 IU/L (42-121); ALT ALANINE AMINOTRANSFERASE 35 IU/L (10-60); AST ASPARTATE AMINOTRANSFERASE 27 IU/L (10-42); BILIRUBIN,TOTAL 0.6 mg/dL (0.2-1.0); BUN - BLOOD UREA NITROGEN 12 mg/dL (6-20); CALCIUM 9.4 mg/dL (8.5-10.3); CARBON DIOXIDE - CO2 26 mmol/L (21-32); CHLORIDE 100 mmol/L (101-111); CHOL/HDL RATIO 4.8 (<4.4); CHOLESTEROL 252 mg/dL; CREATININE 0.8 mg/dL (0.4-1.0); GLUCOSE 94 mg/dL (70-100); HDL CHOLESTEROL 53 mg/dL; LDL CHOLESTEROL,CALCULATED 169 mg/dL; LDL/HDL RATIO 3.2 (<4.4); SODIUM 138 mmol/L (135-145); TOTAL PROTEIN 7.5 g/dL (6.7-8.2); VLDL CHOLESTEROL 30 mg/dL
== END 2020-06-23 12:25 | disposition home or self-care (01) ==
LOC: LAB 12:24
PROVIDERS: ATTEND Registered Nurse
DX: R63.5 Abnormal weight gain (principal); J02.8 Acute pharyngitis due to other specified organisms; R50.9 Fever, unspecified; N95.1 Menopausal and female climacteric states; R73.01 Impaired fasting glucose
CPT/HCPCS: 36415; 80053; 80061; 83721; 84443; 85025

== ENCOUNTER 2020-07-01 07:34 | Outpatient (CLI) | payer MEDICAID ==
--- NOTE | 2020-07-01 08:48 | MRI Report ---
PROCEDURE: Cervical Spine W/O INDICATIONS: CERVICAL RADICULOPATHY TECHNIQUE: Noncontrast sagittal T1 spin echo and T2 fast spin echo, sagittal STIR, foraminal oblique sagittal T2 fast spin echo, and axial gradient echo or T2 fast spin echo through the cervical spine. COMPARISON: August 05, 2017 MRI examination FINDINGS: Image quality: Excellent. Alignment and Curvature: Mild grade 1 retrolisthesis of C3 on C4. There is otherwise normal bony ali gnment. Bone Marrow: Marrow demonstrates normal overall signal. Anterior fusion of C4-C7 has been performed . There is mild reactive signal within the end plates adjacent to the C3-C4 and C7-T1 intervertebral discs. Spinal Cord: Visualized spinal cord has normal size and signal. No cerebellar tonsillar herniation. Paraspinous Soft Tissues: No paravertebral masses. Prevertebral soft tissues are normal in thicknes s. C2-C3: Mild bilateral facet and uncovertebral hypertrophy. No significant canal stenosis. Mild right foraminal stenosis. No left foraminal stenosis. No change. C3-C4: Mild disc height loss and desiccation. Mild diffuse disc bulge with superimposed central pro trusion. Moderate facet and uncovertebral hypertrophy bilaterally. There is increased, moderate canal stenosis. Increased, moderate bilateral foraminal stenosis. C4-C5: Anterior fusion. Mild facet and uncovertebral hypertrophy. No canal stenosis. Moderate bilate ral foraminal stenosis. No change. C5-C6: Anterior fusion. Mild residual disc osteophyte complex. Mild facet and uncovertebral hypertro phy bilaterally. Mild canal stenosis. Severe right and mild left foraminal stenosis. Right C6 nerve r oot compression. No change. C6-C7: Anterior fusion has been performed. Mild facet and uncovertebral hypertrophy bilaterally. Mil d canal stenosis. Mild bilateral foraminal stenosis. No change. C7-T1: Moderate disc height loss and desiccation. Mild diffuse disc bulge. Mild facet and uncoverteb ral hypertrophy bilaterally. No significant canal stenosis. Increased, severe right foraminal stenosi s. No change in mild left foraminal stenosis. Right C8 nerve root compression, new since the prior ex amination. IMPRESSION: 1. Postsurgical sequelae. 2. Multilevel degenerative disc and facet disease, as well as uncovertebral hypertrophy. 3. Multilevel canal stenoses, worst at C3-C4, where there is increased, moderate canal stenosis. 4. Multilevel foraminal stenoses, worst at C5-C6 and C7-T1 where there is associated intraforaminal n erve root compression. Reviewed by: Morenita March MD on 07/01/2020 8:47 AM PST Approved by: Morenita March MD on 07/01/2020 8:47 AM PST Station ID: [id number]
== END 2020-07-01 07:35 | disposition home or self-care (01) ==
LOC: DI 07:34
PROVIDERS: ATTEND Registered Nurse
DX: M47.812 Spondylosis without myelopathy or radiculopathy, cervical region (principal); M50.21 Other cervical disc displacement, high cervical region; M50.31 Other cervical disc degeneration, high cervical region; M48.02 Spinal stenosis, cervical region; M48.03 Spinal stenosis, cervicothoracic region; Z98.1 Arthrodesis status

== ENCOUNTER 2020-07-25 13:33 | Emergency (ER) | payer MEDICAID ==
[2020-07-25] MEDS ORDERED: ENOXAPARIN 100 MG/ML SYRINGE SUBQ STA (13:54)
--- NOTE | 2020-07-25 13:55 | ED Physician Documentation ---
History of Present Illness - Stated complaint Stated Complaint: left foot swelling, soa, racing heart - Chief complaint Chief Complaint: Ext Problem - History obtained from History obtained from: Patient - History of Present Illness Timing: How many days ago (5) - Additonal information Additional information: 45-year-old female who has had a Achilles tendon repair done to her left Achilles tendon has developed some swelling in the left legShe has some pain associated with up this up the back of her leg to the knee and the knee about 5 days ago she has some tenderness. She is able to walk and move the leg does not feel that there is any issue with the surgical site itself. She has noted that she is short of breath if she gets up to go do anything over the last 2 days. She has noted her heart to be beating faster than normal. Review of Systems Constitutional: denies: Fever Eyes: denies: Decreased vision Ears: denies: Ear pain Nose: denies: Rhinorrhea / runny nose, Congestion Throat: denies: Sore throat Cardiac: reports: Chest pain / pressure, Palpitations, Pedal edema (L), Calf pain (L) Respiratory: reports: Dyspnea. denies: Cough GI: denies: Abdominal Pain, Nausea, Vomiting, Constipation, Diarrhea : denies: Dysuria, Frequency Skin: denies: Rash Musculoskeletal: reports: Extremity pain. 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 : None HEENT: None Psych: Depression, Anxiety Musculoskeletal: Chronic back pain, Other Derm: None - Past Surgical History Past Surgical History: Yes General: Cholecystectomy 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, Rotator cuff repair, Other /MEDICAID COLLECTION SPECIALIST: Tubal ligation, 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 - Present Medications Home Medications: Ambulatory Orders Medication Instructions Recorded Confirmed DULoxetine [Cymbalta] 90 tab PO DAILY 08/10/18 01/20/20 Bupropion HCl [Wellbutrin Xl] 300 mg PO DAILY 03/09/19 01/20/20 Estradiol [Climara 0.1 mg] 1 each TD ONCE 09/02/19 01/20/20 HYDROcod/ACETAM 5/325 [[place] 5/325] 1 ea PO Q6H PRN #15 tablet 06/04/20 Ibuprofen/Acetaminophen [Advil 1 each PO 07/25/20 Dual Action 250Mg-125Mg] Topiramate [Topamax] 25 mg PO BID 07/25/20 07/25/20 - Allergies Allergies/Adverse Reactions: Allergies Allergy/AdvReac Type Severity Reaction Status Date / Time No Known Drug Allergies Allergy Verified 07/25/20 13:40 - Social History Does the pt smoke?: No Smoking Status: Never smoker Does the pt drink ETOH?: No Does the pt have substance abuse?: No - Immunizations Immunizations are current?: Yes - POLST Patient has POLST: No PD ED PE NORMAL - Vitals Vital signs reviewed: Yes (tachy and hypertensive ) - General General: Alert and oriented X 3, No acute distress, Well developed/nourished - HEENT HEENT: Atraumatic, PERRL, EOMI - Neck Neck: Supple, no meningeal sign, No bony TTP - Cardiac Cardiac: No murmur, Other (tachy to 115) - Respiratory Respiratory: No respiratory distress, Clear bilaterally - Abdomen Abdomen: Normal bowel sounds, Soft, Non tender, Non distended, No organomegaly, Other (obese) - Back Back: No CVA TTP, No spinal TTP - Derm Derm: Normal color, Warm and dry, No rash - Extremities Extremities: No deformity, Other (There is edema to the left calf from the foot to the knee. There is tenderness over the posterior calf over the gastrocs but not over the achilles. The posterior calf is swollen. The DP pulse is palpable and strong.) - 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, monotyper 2-12 intact, No motor deficit, No sensory deficit, Normal speech Eye Opening: Spontaneous Motor: Obeys Commands Verbal: Oriented GCS Score: 15 - Psych Psych: Normal mood, Normal affect Results - Vitals Vitals: Vital Signs - 24 hr 07/25/20 07/25/20 07/25/20 13:36 14:06 14:55 Temperature 36.0 C L Heart Rate 118 H 107 H 103 H Respiratory 17 24 21 Rate Blood Pressure 142/92 H 127/67 106/72 O2 Saturation 100 99 99 Oxygen O2 Source Room air - EKG (time done) 1356 Rate: Rate (enter#) (104) Rhythm: Sinus tachycardia Other comments: Other comments (early transition) Compare to prior EKG: Changed from prior EKG (SPT 09-02-2019 rate has increased) Computer interpretation: Agree with computer - Labs Labs: Laboratory Tests 07/25/20 07/25/20 07/25/20 13:58 13:58 13:58 WBC 4.6 L RBC 3.86 L Hgb 12.4 Hct 37.5 MCV 97.2 MCH 32.1 H MCHC 33.1 RDW 13.0 Plt Count 232 MPV 9.4 Neut # (Auto) 1.9 Lymph # (Auto) 2.1 [place] # (Auto) 0.5 Eos # (Auto) 0.1 Baso # (Auto) 0.0 Absolute Nucleated RBC 0.00 Nucleated RBC % 0.0 PT 11.5 INR 1.0 APTT 34.1 H Sodium 138 Potassium 3.8 Chloride 99 L Carbon Dioxide 28 Anion Gap 11.0 BUN 14 Creatinine 0.8 Estimated GFR (MDRD) 77 L Glucose 107 H Calcium 9.5 Total Bilirubin 0.5 AST 47 H ALT 60 Alkaline Phosphatase 73 Total Protein 7.4 Albumin 4.2 Globulin 3.2 Albumin/Globulin Ratio 1.3 Lipase 25 - Rads (name of study) CT angio chest Radiology: Prelim report reviewed (Impression: 1. Suboptimal opacification of the central pulmonary arteries. No definitive findings to suggest pulmonary embolism. 2 Multifocal wall thickening involving the anterior lateral aspect of the pulmonary outflow tract, unchanged in appearance compared to last exam. The clinical signific), Final report received (The clinical significance of the finding is uncertain. May be secondary to chronic pulmonary hypertension. Recommend clinical correlation. If indicated, echocardiogram may be helpful. 3 A 6 mm nodule in the left upper lobe is stable since 08/10/2018, likely benign. Please see enclosed recomendati), EMP read indepedently, See rad report duplex viens left Radiology: Prelim report reviewed (Impression: No DVT in the left lower extremity.), EMP read indepedently, See rad report Procedures - IVC sono (time) 1350 Bedside IVC sono: IVC measures (cm) (1.04), Dehydration (est 1 liter deficit) PD MEDICAL DECISION MAKING - ED course Complexity details: reviewed old records, reviewed results, re-evaluated patient, considered differential, d/w patient ED course: 45-year-old female with a 5-day history of swelling to the left calf presents to the emergency department with tachycardia and tachypnea with exertion and the suspicion is for DVT with pulmonary embolism. An IV is begun and studies for duplex veins on the left as well as a CT angiogram of the chest is ordered and the patient is administered Lovenox 100 units subcutaneously. She becomes anxious and ativan 1mg IVP is administered. Despite the findings concerning for deep vein thrombosis and possible pulmonary embolism the imaging studies done were negative for such entities. The patient had improvement in her anxiety with the use of the Ativan and we thankfully did not demonstrate any thrombosis. And further history with the patient I was able to ascertain a history that prior to the beginning of her pain she had been walking more and this is the likely etiology to her pain and swelling. Departure - Departure Disposition: 01 Home, Self Care Clinical Impression: Swelling of lower extremity Condition: Stable Instructions: Exercise Lower Body Calf Stretch Follow-Up: Anel Tyler ARNP [Primary Care Provider] -
[2020-07-25 14:05] LABS: BASOPHILS % (AUTO) 0.4 %; EOSINOPHILS # (AUTO) 0.1 10^3/uL (0.0-0.7); EOSINOPHILS % (AUTO) 1.3 %; HGB - HEMOGLOBIN 12.4 g/dL (12.0-16.0); LYMPHOCYTES # (AUTO) 2.1 10^3/uL (1.5-3.5); LYMPHOCYTES % (AUTO) 45.4 %; MEAN CORPUSCULAR HEMOGLOBIN 32.1 pg (27.0-31.0); MEAN CORPUSCULAR HGB CONC 33.1 g/dL (32.0-36.0); MEAN CORPUSCULAR VOLUME 97.2 fL (81.0-99.0); MEAN PLATELET VOLUME 9.4 fL (7.9-10.8); MONOCYTES # (AUTO) 0.5 10^3/uL (0.0-1.0); MONOCYTES % (AUTO) 10.3 %; NEUTROPHILS # (AUTO) 1.9 10^3/uL (1.5-6.6); NEUTROPHILS % (AUTO) 42.4 %; PLT - PLATELET COUNT 232 10^3/uL (130-450); RED BLOOD COUNT 3.86 10^6/uL (4.20-5.40); WHITE BLOOD COUNT 4.6 x10^3/uL (4.8-10.8)
[2020-07-25 14:11] LABS: PT - PROTHROMBIN TIME 11.5 secs (9.9-12.6)
[2020-07-25 14:18] LABS: ALBUMIN 4.2 g/dL (3.2-5.5); BILIRUBIN,TOTAL 0.5 mg/dL (0.2-1.0); CALCIUM 9.5 mg/dL (8.5-10.3); CREATININE 0.8 mg/dL (0.4-1.0); PARTIAL THROMBOPLASTIN TIME 34.1 secs (24.9-33.3); TOTAL PROTEIN 7.4 g/dL (6.7-8.2)
[2020-07-25 14:19] LABS: ALBUMIN/GLOBULIN RATIO 1.3 (1.0-2.2)
[2020-07-25] MEDS ORDERED: LORazepam 2 MG/ML VIAL IVP STA (14:49)
[2020-07-25] MEDS ORDERED: IOVERSOL 320 100 ML VIAL IVP ONE ×2 (15:21→15:41)
--- NOTE | 2020-07-25 15:58 | CT Report ---
PROCEDURE: ANGIO CHEST W INDICATIONS: soa unilateral leg swelling CONTRAST: IV CONTRAST: Optiray 320 ml: 80 PO CONTRAST: *NO PO CONTRAST TECHNIQUE: After the administration of intravenous contrast, 2 mm thick sections acquired from the pulmonary api raul to the posterior costophrenic angles. 3-dimensional maximum intensity projection (MIP) coronal a nd sagittal reformats were then acquired through the thorax. For radiation dose reduction, the follow ing was used: automated exposure control, adjustment of mA and/or kV according to patient size. COMPARISON: CT chest angiogram 08/10/2018 06/20/2019. Chest x-ray 2 view, 05/25/2020 FINDINGS: Image quality: Suboptimal opacification of pulmonary arteries. Pulmonary arteries: Pulmonary arteries are normal in size, and demonstrate no intraluminal filling d efects to suggest central pulmonary embolism. Small focal wall thickening in the anterior lateral as pect of the pulmonary outflow tract, unchanged in appearance compared to 08/10/2018. Lungs and pleura: There is a 6 mm pulmonary nodule in the left upper lobe (image 5/53), unchanged sin ce 08/10/2018, likely benign. No pleural effusions or pneumothorax. Central and peripheral airways are patent. Mediastinum: Heart size is normal, without pericardial effusion. No mediastinal or hilar adenopathy . Thoracic aorta is normal in caliber and enhancement. Esophagus is normal in caliber, without hiat al hernia. Bones and chest wall: No suspicious bony lesions. Ribs and thoracic spine appear intact throughout. The thyroid is normal. No axillary or supraclavicular adenopathy. Abdomen: Visualized upper abdominal solid organs appear normal in the early arterial phase of enhanc ement. IMPRESSION: 1. Suboptimal opacification of central pulmonary arteries. No definitive findings to suggest pulmonar y embolism. 2. Mild focal wall thickening involving the anterior lateral aspect of the pulmonary outflow tract, u nchanged in appearance compared to the last exam. The clinical significance of the findings uncertain . It may be secondary to chronic pulmonary hypertension. Recommend clinical correlation. If indicated , echocardiogram may be helpful. 3. A 6 mm nodule in the left upper lobe is stable since 08/10/2018, likely benign. Please see enclose d follow-up recommendation. Fleischner Society criteria for SOLID lung nodule followup. Nodule size (mm) Low-risk patient High-risk patient ?4 No follow-up needed Follow-up at 12 mo; if no change, no further follow-up >4-[address] at 12 mo; if no change, no further follow-up needed. Initial follow-up CT at 6-12 mo, then 18-24 mo if no change. >6-8 Initial follow-up CT at 6-12 mo, then 18-24 mo if no change. Initial follow-up CT at 3-6 mo, then 9-12 mo and 24 mo if no change. >8 Follow-up CT at 3, 9, 24 mo. Or PET and/or biopsy. Same as for low-risk pts. Reviewed by: Beka Rodríguez MD on 07/25/2020 3:56 PM PST Approved by: Beka Rodríguez MD on 07/25/2020 3:56 PM PST Station ID: [id number]
[2020-07-25] MEDS ORDERED: SODIUM CHLORIDE 0.9% 1,000 ML IV STA (15:59)
--- NOTE | 2020-07-25 16:01 | Ultrasound Report ---
PROCEDURE: Duplex Ext Veins Left INDICATIONS: swelling pain to left calf TECHNIQUE: Real-time imaging, as well as color and pulse Doppler interrogation, were performed of the lower extr emity deep veins from the inguinal ligament to the popliteal fossa. COMPARISON: None. FINDINGS: The examination is limited because of the patient's body habitus and left thoracotomy zackery a. The deep veins are normally compressible, and free of intraluminal thrombus. Color and pulse Dopp ler demonstrate normal phasic intraluminal flow. There is normal augmentation response to distal com pression maneuver. IMPRESSION: No DVT in the left lower extremity. Reviewed by: Beka Rodríguez MD on 07/25/2020 3:59 PM PST Approved by: Beka Rodríguez MD on 07/25/2020 3:59 PM PST Station ID: [id number]
[2020-07-25 16:12] VITALS: BP 108/54
== END 2020-07-25 17:08 | disposition home or self-care (01) ==
LOC: ED 13:33
DX: M79.89 Other specified soft tissue disorders (principal); F41.9 Anxiety disorder, unspecified; R07.9 Chest pain, unspecified; R00.0 Tachycardia, unspecified; R06.82 Tachypnea, not elsewhere classified
CPT/HCPCS: 36415; 71275; 80053; 83690; 85025; 85610; 85730; 93005; 93971; 96372; 96374; 99284; J1650; J2060; Q9967

== ENCOUNTER 2020-08-01 09:40 | Emergency (ER) | payer MEDICAID ==
[2020-08-01 10:18] LABS: BASOPHILS % (AUTO) 0.5 %; EOSINOPHILS # (AUTO) 0.1 10^3/uL (0.0-0.7); EOSINOPHILS % (AUTO) 1.6 %; HGB - HEMOGLOBIN 13.3 g/dL (12.0-16.0); LYMPHOCYTES # (AUTO) 1.9 10^3/uL (1.5-3.5); LYMPHOCYTES % (AUTO) 44.7 %; MEAN CORPUSCULAR HEMOGLOBIN 32.5 pg (27.0-31.0); MEAN CORPUSCULAR HGB CONC 33.9 g/dL (32.0-36.0); MEAN CORPUSCULAR VOLUME 95.8 fL (81.0-99.0); MEAN PLATELET VOLUME 9.4 fL (7.9-10.8); MONOCYTES # (AUTO) 0.3 10^3/uL (0.0-1.0); PLT - PLATELET COUNT 236 10^3/uL (130-450); RED BLOOD COUNT 4.09 10^6/uL (4.20-5.40); RED CELL DISTRIBUTION WIDTH 12.9 % (12.0-15.0); WHITE BLOOD COUNT 4.3 x10^3/uL (4.8-10.8)
--- NOTE | 2020-08-01 10:19 | ED Physician Documentation ---
PD HPI CHEST PAIN - Stated complaint Stated Complaint: CHEST PX/SOA - Chief complaint Chief Complaint: Cardiac - History obtained from History obtained from: Patient - History of Present Illness Timing - onset: Today Timing - onset during: Rest Timing - duration: Hours (2) Timing - details: Gradual onset Pain level max: 4 Pain level now: 3 Quality: Pressure, Tightness Location: Left chest Radiation: No: Jaw, Neck, Back, Abdominal, Left upper extremity, Right upper extremity Improved by: Nothing. No: Rest, ASA Worsened by: No: Exertion, Inspiration, Eating, Movement, Palpation, Position Associated symptoms: Shortness of air (for the past several weeks), Nausea. No: Diaphoresis, Vomiting, Feeling faint / dizzy, General Weakness, Palpitations - Additional information Additional information: 45-year-old female states 2 hours of chest pain today. Has been feeling nauseated, weak and generally unwell recently. Started on Lasix recently for swelling in the bilateral lower extremities. Negative leg ultrasound and CT angiogram of the chest about a week ago. Did have signs on the CT concerning for pulmonary hypertension, patient is scheduled for an echocardiogram with her doctor. 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 : None HEENT: None Psych: Depression, Anxiety Musculoskeletal: Chronic back pain, Other Derm: None - Past Surgical History Past Surgical History: Yes General: Cholecystectomy 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, Rotator cuff repair, Other /XEROX MACHINE MECHANIC: Tubal ligation, 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 - Present Medications Home Medications: Ambulatory Orders Medication Instructions Recorded Confirmed DULoxetine [Cymbalta] 90 tab PO DAILY 08/10/18 08/01/20 Bupropion HCl [Wellbutrin Xl] 300 mg PO DAILY 03/09/19 08/01/20 Estradiol [Climara 0.1 mg] 1 each TD ONCE 09/02/19 08/01/20 HYDROcod/ACETAM 5/325 [Trafford 5/325] 1 ea PO Q6H PRN #15 tablet 06/04/20 08/01/20 Ibuprofen/Acetaminophen [Advil 1 each PO PRN PRN 07/25/20 08/01/20 Dual Action 250Mg-125Mg] Topiramate [Topamax] 100 mg PO BID 07/25/20 08/01/20 Furosemide [Lasix] 20 mg PO DAILY 08/01/20 08/01/20 Gabapentin [Neurontin] 900 mg PO TID 08/01/20 08/01/20 - Allergies Allergies/Adverse Reactions: Allergies Allergy/AdvReac Type Severity Reaction Status Date / Time No Known Drug Allergies Allergy Verified 08/01/20 10:01 - Social History Does the pt smoke?: No Smoking Status: Never smoker Does the pt drink ETOH?: No Does the pt have substance abuse?: No - Immunizations Immunizations are current?: Yes - POLST Patient has POLST: No PD ED PE NORMAL - Vitals Vital signs reviewed: Yes - General General: Alert and oriented X 3, No acute distress - HEENT HEENT: Moist mucous membranes - Neck Neck: Supple, no meningeal sign - Cardiac Cardiac: RRR - Respiratory Respiratory: No respiratory distress, Clear bilaterally - Derm Derm: Warm and dry - 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 - Psych Psych: Normal mood, Normal affect Results - Vitals Vitals: Vital Signs - 24 hr 08/01/20 08/01/20 08/01/20 09:57 10:21 11:14 Temperature 36.8 C Heart Rate 84 80 80 Respiratory 16 22 24 Rate Blood Pressure 156/81 H 134/61 H 127/86 H O2 Saturation 100 99 96 08/01/20 08/01/20 12:02 13:00 Temperature Heart Rate 93 88 Respiratory 20 16 Rate Blood Pressure 124/74 135/80 H O2 Saturation 92 99 Oxygen O2 Source Room air - EKG (time done) 0950 Rate: Rate (enter#) (79) Rhythm: NSR Fortson: Normal Intervals: Normal UT QRS: Normal Ischemia: Normal ST segments, Other (early R wave transition) - Labs Labs: Laboratory Tests 08/01/20 08/01/20 08/01/20 10:09 10:09 10:09 WBC 4.3 L RBC 4.09 L Hgb 13.3 Hct 39.2 MCV 95.8 MCH 32.5 H MCHC 33.9 RDW 12.9 Plt Count 236 MPV 9.4 Neut # (Auto) 2.0 Lymph # (Auto) 1.9 Rolette # (Auto) 0.3 Eos # (Auto) 0.1 Baso # (Auto) 0.0 Absolute Nucleated RBC 0.00 Nucleated RBC % 0.0 Sodium 140 Potassium 4.2 Chloride 102 Carbon Dioxide 25 Anion Gap 13.0 BUN 11 Creatinine 0.8 Estimated GFR (MDRD) 77 L Glucose 129 H Calcium 9.4 Total Bilirubin 0.6 AST 48 H ALT 56 Alkaline Phosphatase 53 Troponin I High Sens 2.8 B-Natriuretic Peptide Total Protein 7.3 Albumin 4.2 Globulin 3.1 Albumin/Globulin Ratio 1.4 Lipase 20 L 08/01/20 08/01/20 10:09 12:02 WBC RBC Hgb Hct MCV MCH MCHC RDW Plt Count MPV Neut # (Auto) Lymph # (Auto) Rolette # (Auto) Eos # (Auto) Baso # (Auto) Absolute Nucleated RBC Nucleated RBC % Sodium Potassium Chloride Carbon Dioxide Anion Gap BUN Creatinine Estimated GFR (MDRD) Glucose Calcium Total Bilirubin AST ALT Alkaline Phosphatase Troponin I High Sens 2.3 B-Natriuretic Peptide 14 Total Protein Albumin Globulin Albumin/Globulin Ratio Lipase - Rads (name of study) cxr Radiology: Prelim report reviewed, EMP read contemporaneously, See rad report (Chest no acute disease) PD MEDICAL DECISION MAKING - ED course Complexity details: reviewed results, re-evaluated patient, considered differential (No ST elevation CO, no aortic dissection, no PE, no tension pneumothorax, no aortic aneurysm), d/w patient ED course: Chest pain resolved with hydrocodone in the emergency department. No acute findings on EKG, chest x-ray or laboratory testing. Reviewed prior records. Possible that this is secondary to pulmonary hypertension. Recommend an echocardiogram and likely a sleep study as well for possible sleep apnea. Patient counseled regarding signs and symptoms for which I believe and urgent re-evaluation would be necessary. Patient with good understanding of and agreement to plan and is comfortable going home at this time This document was made in part using voice recognition software. While efforts are made to proofread this document, sound alike and grammatical errors may occur. Departure - Departure Disposition: 01 Home, Self Care Clinical Impression: Atypical chest pain Condition: Good Instructions: ED Chest Pain Atypical Unkn Cause Follow-Up: Anel Tyler ARNP [Primary Care Provider] - Within 1 week Comments: There is concern for potential pulmonary hypertension on your CT scan from your prior ED visit. You need an echocardiogram to further assess this. You likely should have a sleep study as well to evaluate for potential sleep apnea. Return if you worsen. Your EKG and cardiac testing is normal today. Continue your current medications. Discharge Date/Time: 08/01/20 13:01
[2020-08-01 10:32] LABS: ALBUMIN 4.2 g/dL (3.2-5.5); ALBUMIN/GLOBULIN RATIO 1.4 (1.0-2.2); BILIRUBIN,TOTAL 0.6 mg/dL (0.2-1.0); CALCIUM 9.4 mg/dL (8.5-10.3); CREATININE 0.8 mg/dL (0.4-1.0); TOTAL PROTEIN 7.3 g/dL (6.7-8.2)
--- NOTE | 2020-08-01 10:37 | XRAY Report ---
PROCEDURE: Chest 1 View X-Ray INDICATIONS: Chest pain TECHNIQUE: One view of the chest was acquired. COMPARISON: CT angiography of the chest 07/25/2020 FINDINGS: Surgical changes and devices: None. Lungs and pleura: No pleural effusions or pneumothorax. Lungs are clear. Mediastinum: Mediastinal contours appear normal. Heart size is normal. Bones and chest wall: No suspicious bony lesions. Overlying soft tissues appear unremarkable. IMPRESSION: No acute cardiopulmonary process demonstrated radiographically. Reviewed by: Jacinto Samayoa MD on 08/01/2020 10:36 AM [facility] Approved by: Jacinto Samayoa MD on 08/01/2020 10:36 AM [facility] Station ID: [id number]
[2020-08-01] MEDS ORDERED: HYDROcod/ACETAM 5/325 MG TABLET PO STA (11:50)
[2020-08-01 13:01] VITALS: BP 135/80
== END 2020-08-01 13:01 | disposition home or self-care (01) ==
LOC: ED 09:40
DX: R07.89 Other chest pain (principal)
CPT/HCPCS: 71045; 80053; 83690; 83880; 84484; 85025; 93005; 99284; A9270; 36415

== ENCOUNTER 2020-08-26 09:05 | Outpatient (CLI) | payer MEDICAID | END 2020-08-26 09:06 | disposition home or self-care (01) | LOC: DI 09:05 | PROVIDERS: ATTEND Registered Nurse | DX: I27.20 Pulmonary hypertension, unspecified (principal); R60.0 Localized edema | CPT/HCPCS: 93306 ==

== ENCOUNTER 2020-09-02 12:29 | Outpatient (CLI) | payer MEDICAID ==
[2020-09-02 13:02] LABS: ALBUMIN 4.7 g/dL (3.2-5.5); ALBUMIN/GLOBULIN RATIO 1.5 (1.0-2.2); BILIRUBIN,TOTAL 0.6 mg/dL (0.2-1.0); CALCIUM 10.3 mg/dL (8.5-10.3); CREATININE 0.7 mg/dL (0.4-1.0); MAGNESIUM 2.2 mg/dL (1.7-2.8); TOTAL PROTEIN 7.8 g/dL (6.7-8.2)
== END 2020-09-02 12:30 | disposition home or self-care (01) ==
LOC: LAB 12:29
PROVIDERS: ATTEND Specialist
DX: E78.2 Mixed hyperlipidemia (principal); I10 Essential (primary) hypertension; R00.2 Palpitations; R06.00 Dyspnea, unspecified
CPT/HCPCS: 36415; 80053; 83735; 84443

== ENCOUNTER 2020-09-12 12:28 | Outpatient (CLI) | payer MEDICAID | END 2020-09-12 12:29 | disposition home or self-care (01) | LOC: LAB 12:28 | PROVIDERS: ATTEND Specialist | DX: R07.2 Precordial pain (principal); Z20.822 Contact with and (suspected) exposure to COVID-19 ==

== ENCOUNTER 2020-10-21 13:35 | Emergency (ER) | payer MEDICAID ==
--- OUTSIDE RECORDS SUMMARY | 2020-10-21 13:39 | EXTERNAL MEDICAL SUMMARY RPT | Continuity of Care Document ---
:1975 Demographics Phone Unavailable Preferred Language Hungarian Marital Status Unknown Mosque Affiliation Unknown Race Unknown Ethnic Group Unknown Author Organization [facility] Address [address] [place] [address] Phone Care Team Providers Name Role Phone Katus Unavailable Unavailable Problems date description facility [id number] [facility]
--- OUTSIDE RECORDS SUMMARY | 2020-10-21 13:42 | EXTERNAL MEDICAL SUMMARY RPT | Continuity of Care Document ---
:1975 Demographics Phone Unavailable Preferred Language Swazi Marital Status Unknown Presybeterian Affiliation Unknown Race Unknown Ethnic Group Unknown Author Organization [facility] Address [address] [place] [address] Phone Care Team Providers Name Role Phone Katus Unavailable Unavailable Problems date description facility [id number] [facility]
[2020-10-21 14:15] VITALS: BP 127/86
[2020-10-21] MEDS ORDERED: predniSONE 20 MG TABLET PO STA (14:30)
--- NOTE | 2020-10-21 14:32 | ED Physician Documentation ---
History of Present Illness - Stated complaint Stated Complaint: WEAKNESS/MEMORY ISSUES - Chief complaint Chief Complaint: Ext Problem - Additonal information Additional information: 45-year-old female presents emergency department for evaluation of acute on chronic low back pain. She reports a longstanding history of sciatica and was started on Lyrica on 08 October with her airbrush painter. Despite starting Lyrica she feels that the pain is getting progressively worse for her. She feels that her leg is more on fire than it typically has been. No recent falls or trauma. No fevers. No personal history of cancer. Denies saddle anesthesia or loss of bowel and bladder continence. meds: Hydrocodone, Lyrica, fluoxetine. Review of Systems Constitutional: denies: Fever, Myalgias Eyes: reports: Loss of vision Ears: reports: Reviewed and negative Nose: reports: Reviewed and negative Throat: reports: Reviewed and negative Cardiac: reports: Reviewed and negative Respiratory: reports: Reviewed and negative GI: denies: Abdominal Pain, Nausea, Vomiting : denies: Dysuria, Frequency, Hesitancy Skin: denies: Rash, Lesions Musculoskeletal: reports: Back pain PD PAST MEDICAL HISTORY - Past Medical History Past Medical History: Yes Cardiovascular: High cholesterol Respiratory: None Neuro: None Endocrine/Autoimmune: HyPOthyroidism GI: GERD TOUCH UP CARVER: 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 : None HEENT: None Psych: Depression, Anxiety Musculoskeletal: Osteoarthritis, Chronic back pain, Other Derm: None - Past Surgical History Past Surgical History: Yes General: Cholecystectomy 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, Rotator cuff repair, Other /TOUCH UP CARVER: Tubal ligation, 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 - Present Medications Home Medications: Ambulatory Orders Medication Instructions Recorded Confirmed DULoxetine [Cymbalta] 90 tab PO DAILY 08/10/18 10/21/20 Estradiol [Climara 0.1 mg] 1 each TD ONCE 09/02/19 10/21/20 Ibuprofen/Acetaminophen [Advil 1 each PO PRN PRN 07/25/20 10/21/20 Dual Action 250Mg-125Mg] HYDROcodone/ACET 7.5/325 [Mcloud 1 each PO Q6H 10/21/20 10/21/20 7.5/325] Pregabalin [Lyrica] 150 mg PO HS 10/21/20 10/21/20 predniSONE [Deltasone] 40 mg PO DAILY 5 Days #10 tablet 10/21/20 - Allergies Allergies/Adverse Reactions: Allergies Allergy/AdvReac Type Severity Reaction Status Date / Time No Known Drug Allergies Allergy Verified 10/21/20 13:37 - Social History Does the pt smoke?: No Smoking Status: Former smoker Does the pt drink ETOH?: No Does the pt have substance abuse?: No - Immunizations Immunizations are current?: Yes - POLST Patient has POLST: No PD ED PE EXPANDED - General General: Alert, In Pain, Other (obese) - Cardiac Cardiac: Regular Rate, Radial strong equal, Cap refill < 2 sec. No: Murmur Present - Respiratory Respiratory: Clear to ausultation raiza. No: Distress, Labored - Back Back: Soft tissue tenderness (no midline focal tenderness. + tenderness at left SI point. no swellign erythema. Motor strength 5/5 BLE), Straight leg raise + L. No: Normal exam, Vertebral tenderness, Straight leg raise + R, CVA TTP right, CVA TTP left Results - Vitals Vitals: Vital Signs - 24 hr 10/21/20 10/21/20 13:37 14:12 Temperature 37.2 C Heart Rate 79 80 Respiratory 18 18 Rate Blood Pressure 147/92 H 127/86 H O2 Saturation 100 100 Oxygen O2 Source Room air PD MEDICAL DECISION MAKING - ED course Complexity details: reviewed results, re-evaluated patient, d/w patient ED course: [id number] female presents to the emergency department for evaluation of acute on chronic left low back pain consistent with her history of sciatica. No red flags on exam. She currently started Lyrica with minimal relief. She is already taking hydrocodone in conjunction with a airbrush painter. Patient has reported that she has often found relief through a short course of steroids and this was offered and accepted today. Because patient drove here she has declined any further sedating or opiate medications. Advise close follow-up with her primary care provider. Emergent return precautions were discussed. Departure - Departure Disposition: 01 Home, Self Care Clinical Impression: Left-sided low back pain with left-sided sciatica Qualifiers: Chronicity: acute Qualified Code(s): M54.42 - Lumbago with sciatica, left side Condition: Stable Record reviewed to determine appropriate education?: Yes Instructions: ED Sciatica Follow-Up: Anel Tyler ARNP [Primary Care Provider] - Prescriptions: predniSONE [Deltasone] 40 mg PO DAILY 5 Days #10 tablet Comments: Claudine you were seen today for chronic left low back pain. This is consistent with your history of sciatica. Please continue to follow-up with your airbrush painter. However I do feel that you would benefit from a short course of steroids. Your first dose was given today in the emergency department. Tomorrow please fill the prescription and begin taking daily for the next 5 days. If any point you lose control of your bowel or bladder function, have numbness in your genital area or develop any fevers please return immediately to the emergency department.
== END 2020-10-21 14:52 | disposition home or self-care (01) ==
LOC: ED 13:35
DX: M54.42 Lumbago with sciatica, left side (principal); G89.29 Other chronic pain; Z87.891 Personal history of nicotine dependence; E66.9 Obesity, unspecified
CPT/HCPCS: 99282; 99283; J7512

== ENCOUNTER 2020-10-28 06:15 | Emergency (ER) | payer MEDICAID ==
--- OUTSIDE RECORDS SUMMARY | 2020-10-28 06:17 | EXTERNAL MEDICAL SUMMARY RPT | Continuity of Care Document ---
:1975 Demographics Phone Unavailable Preferred Language Portuguese Marital Status Unknown Yazdanism Affiliation Unknown Race Unknown Ethnic Group Unknown Author Organization [facility] Address [address] [place] [address] Phone Care Team Providers Name Role Phone Katus Unavailable Unavailable Problems date description facility [id number] [facility]
--- OUTSIDE RECORDS SUMMARY | 2020-10-28 06:19 | EXTERNAL MEDICAL SUMMARY RPT | Continuity of Care Document ---
:1975 Demographics Phone Unavailable Preferred Language Hong Konger Marital Status Unknown Bahai Affiliation Unknown Race Unknown Ethnic Group Unknown Author Organization [facility] Address [address] [place] [address] Phone Care Team Providers Name Role Phone Katus Unavailable Unavailable Problems date description facility [id number] [facility]
[2020-10-28 06:25] VITALS: BP 154/112
[2020-10-28] MEDS ORDERED: KETOROLAC 60 MG/2 ML VIAL IM STA (07:17)
[2020-10-28] MEDS ORDERED: HYDROmorphone 1 MG/ML CARPUJECT IM STA (07:17)
--- NOTE | 2020-10-28 07:22 | ED Physician Documentation ---
History of Present Illness - Stated complaint Stated Complaint: BACK PX - Chief complaint Chief Complaint: Back Pain - History obtained from History obtained from: Patient - Additonal information Additional information: Patient comes emergency department chief complaint of worsening low back pain and left-sided sciatica. Patient has a longstanding history of sciatica and some chronic pain and is seeing by a pain specialist. She states that the symptoms started to flareup a few weeks ago and she saw her pain specialist at that time. She had been on gabapentin, which did not seem to be helping, so she was switched to Lyrica, which she states also did not help. The patient has hydrocodone at home and has been taking a single 7.5 mg tablet about 4 times daily. She states this "takes the edge off" but does not Resolve the pain to the point of patient being able to function better. The patient denies any loss of bowel or bladder control. She gets occasional numbness or tingling in her fo ot, which resolves with positional change. Patient states she is here because she has just not been able to get comfortable at all. The patient states that she was last worked up with MRI about 3 to 4 years ago, and that it showed degenerative changes, herniated disc, and foraminal foraminal stenosis. The patient is also continue to be quite overweight. She is mainly here because of the swelling and concerns over the need for better pain control. She denies any distinct injury, or any heavy lifting or repetitive movement. She states that the swelling definitely started up high and has progressed down her leg a little bit. No swelling in the foot or ankle. Incidentally, the patient mentions that she has noticed an increasingly painful, enlarging lump on the sole of her left foot. No other complaints at this time. Review of Systems Ten Systems: 10 systems reviewed and negative Constitutional: reports: Reviewed and negative Eyes: reports: Reviewed and negative Ears: reports: Reviewed and negative Nose: reports: Reviewed and negative Throat: reports: Reviewed and negative Cardiac: reports: Reviewed and negative Respiratory: reports: Reviewed and negative GI: reports: Reviewed and negative : reports: Reviewed and negative Skin: reports: Reviewed and negative Musculoskeletal: reports: Back pain, Extremity pain Neurologic: reports: Reviewed and negative Psychiatric: reports: Reviewed and negative Endocrine: reports: Reviewed and negative Immunocompromised: reports: Reviewed and negative PD PAST MEDICAL HISTORY - Past Medical History Past Medical History: Yes Cardiovascular: High cholesterol Respiratory: None Neuro: None Endocrine/Autoimmune: HyPOthyroidism GI: 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 HEENT: None Psych: Depression, Anxiety Musculoskeletal: Osteoarthritis, Chronic back pain, Other Derm: None - Past Surgical History Past Surgical History: Yes General: Cholecystectomy 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, Rotator cuff repair, 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, 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 - Present Medications Home Medications: Ambulatory Orders Medication Instructions Recorded Confirmed DULoxetine [Cymbalta] 90 tab PO DAILY 08/10/18 10/28/20 Ibuprofen/Acetaminophen [Advil 1 each PO PRN PRN 07/25/20 10/28/20 Dual Action 250Mg-125Mg] HYDROcodone/ACET 7.5/325 [Hindman 1 each PO Q6H 10/21/20 10/28/20 7.5/325] HYDROcodone/ACET 7.5/325 [Hindman 1 each PO Q4-6H PRN #20 tablet 10/28/20 7.5/325] - Allergies Allergies/Adverse Reactions: Allergies Allergy/AdvReac Type Severity Reaction Status Date / Time No Known Drug Allergies Allergy Verified 10/21/20 13:37 - Social History Does the pt smoke?: No Smoking Status: Never smoker Does the pt drink ETOH?: No Does the pt have substance abuse?: No - Immunizations Immunizations are current?: Yes - POLST Patient has POLST: No PD ED PE NORMAL - Vitals Vital signs reviewed: Yes - General General: Alert and oriented X 3, No acute distress, Well developed/nourished (morbidly obese) - HEENT HEENT: Atraumatic, PERRL, EOMI, Moist mucous membranes - Neck Neck: Supple, no meningeal sign - Cardiac Cardiac: RRR, No murmur, Strong equal pulses - Respiratory Respiratory: No respiratory distress, Clear bilaterally - Back Back: Other (Tenderness over L3-5, with tenderness over left SI joint. 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 2-12 intact, No motor deficit, No sensory deficit, Normal speech - Psych Psych: Normal mood, Normal affect Results - Vitals Vitals: Oxygen O2 Source Room air - Rads (name of study) pelvis XR Radiology: Final report received (Mild OA, otherwise NAD), EMP read indepedently, See rad report Lumbar XR Radiology: Final report received, EMP read indepedently, See rad report (Extensive DJD/DDD L4-S1) PD MEDICAL DECISION MAKING - ED course Complexity details: reviewed old records, reviewed results, re-evaluated patient, considered differential, d/w patient ED course: Pt treated symptomatically in the ED, and XR lumbar spine showed DJD. Discussed results with pt, as well as symptomatic management at home and the usual indications for return. Departure - Departure Disposition: Home, Self Care Clinical Impression: Back pain with sciatica, Foot pain, left Condition: Stable Instructions: ED Sciatica Follow-Up: Johnnie Vigil DPM [Physician No Access] - Prescriptions: HYDROcodone/ACET 7.5/325 [Hindman 7.5/325] 1 each PO Q4-6H PRN #20 tablet PRN Reason: Pain Comments: As we have discussed, your x-ray showed chronic changes in your back, but no acute abnormalities. Given that you are already on the hydrocodone at baseline, we will have you increase this a little bit as needed for the short-term and see if this flare can be gotten under control thereby. You may take an extra half to whole tablet per dose of the hydrocodone if needed. It is also possible to increase the frequency of the hydrocodone from 6 hours to every 4 hours, but I would recommend starting with an extra half tablet when you take your usual doses and keeping the every 6 hour regimen initially. If this is not giving you good enough control, you may either increase the extra half tablet to a full tablet or increase the frequency to every 4 hours instead of every 6. Some ibuprofen for the short-term may be helpful, as well. You may take up to 600 mg every 6 hours or 800 mg every 8 hours, as needed. Please follow-up with your pain specialist as scheduled. Forms: Activity restrictions Discharge Date/Time: 10/28/20 09:06
--- NOTE | 2020-10-28 08:22 | XRAY Report ---
PROCEDURE: Pelvis 1 View INDICATIONS: pain/swelling TECHNIQUE: 1 view(s) of the pelvis acquired. COMPARISON: None. FINDINGS: Bones: No gross acute pelvic fracture or dislocation. Mild osteoarthritic changes are noted in bilate ral sacroiliac joints, hip joints and symphysis pubis. No evidence of avascular necrosis of femoral h ead. No suspicious bony lesions. Soft tissues: Visualized bowel gas pattern is normal. No suspicious soft tissue calcifications. IMPRESSION: No gross acute pelvic fracture or dislocation. Mild pelvic joint osteoarthritis. No evide nce of avascular necrosis. Reviewed by: Dane Andino MD on 10/28/2020 8:21 AM PDT Approved by: Dane Andino MD on 10/28/2020 8:21 AM PDT Station ID: [id number]
--- NOTE | 2020-10-28 08:23 | XRAY Report ---
PROCEDURE: Lumbar Spine 2 View INDICATIONS: pain/swelling TECHNIQUE: 2 views of the lumbar spine were acquired. COMPARISON: CT of abdomen and pelvis dated 06/04/2020 FINDINGS: Bones: 5 [id number] vertebrae are present. There is grade 1 anterolisthesis of L4 on L5 unchan ged from previous study. Degenerative endplate changes and bilateral facet arthrosis at L4-5 and L5-S 1 levels are seen.. No vertebral body compression fractures. No suspicious bony lesions. Soft tissues: Overlying bowel gas pattern is normal. No suspicious soft tissue calcifications. IMPRESSION: No acute compression fracture. Grade 1 anterolisthesis of L4 on L5. Degenerative disc di sease and bilateral facet arthrosis at L4-5 and L5-S1 levels. Reviewed by: Dane Andino MD on 10/28/2020 8:22 AM PDT Approved by: Dane Andino MD on 10/28/2020 8:22 AM PDT Station ID: [id number]
== END 2020-10-28 09:06 | disposition home or self-care (01) ==
LOC: ED 06:15
DX: M51.17 Intervertebral disc disorders with radiculopathy, lumbosacral region (principal); M47.27 Other spondylosis with radiculopathy, lumbosacral region; M79.672 Pain in left foot; M19.09 Primary osteoarthritis, other specified site; M47.898 Other spondylosis, sacral and sacrococcygeal region; M16.0 Bilateral primary osteoarthritis of hip; E66.01 Morbid (severe) obesity due to excess calories; Z68.41 Body mass index [BMI] 40.0-44.9, adult
CPT/HCPCS: 72100; 72170; 96372; 99284; J1170